=== PATIENT | male | born 1945 | race Caucasian/White ===

== ENCOUNTER 2017-10-09 14:35 | Inpatient (IN) | payer OTHER ==
--- OUTSIDE RECORDS SUMMARY | 2017-10-09 14:37 | XMS REPORT | Clinical Summary ---
:1945 [address] [facility] [place] [place] Address [address] [place] [address] Care Team Providers Name Role Phone Asked, No Pcp Primary Care Provider Unavailable Allergies Active Allergy Reactions Severity Noted Date Comments Ampicillin Anaphylaxis High 12/20/2016 Aspirin Anaphylaxis High 12/20/2016 Codeine Anaphylaxis High 12/20/2016 Meperidine Anaphylaxis High 12/20/2016 Penicillins Anaphylaxis High 12/20/2016 Tetracycline Anaphylaxis High 12/20/2016 Current Medications No known medications Active Problems Not on file Encounters Date Type Specialty Care Team Description 12/20/2016 Emergency Emergency Medicine Steve Eduardo Altered mental status, unspecified altered mental status type (Primary Dx); DO Zack Reyes after 10/08/2016 Social History Tobacco Use Types Packs/Day Years Used Date Former Smoker Alcohol Use Drinks/Week oz/Week Comments No Sex Assigned at Date Recorded Not on file Last Filed Vital Signs Vital Sign Reading Time Taken Blood Pressure 121/87 12/20/2016 1:00 PM CDT Pulse 76 12/20/2016 1:00 PM CDT Temperature - - Respiratory Rate 16 12/20/2016 1:00 PM CDT Oxygen Saturation 99% 12/20/2016 1:00 PM CDT Inhaled Oxygen Concentration - - Weight - - Height - - Body Mass Index - - Plan of Treatment Health Maintenance Due Date Last Done Comments COLON CANCER SCREENING 1996 SHINGRIX VACCINE (#1) 1996 ZOSTER VACCINE 2006 PNEUMOCOCCAL POLYSACCHARIDE VACCINE AGE 65 AND OVER 09/26/2011 PNEUMOCOCCAL-13 09/26/2011 INFLUENZA VACCINE 11/15/2017 Procedures Procedure Name Priority Date/Time Associated Comments Diagnosis ECG ED PRELIMINARY Routine 12/20/2016 1:49 Results for this INTERPRETATION PM CDT procedure are in the results section. CT STROKE BRAIN WO STAT 12/20/2016 1:07 Results for this CONTRAST PM CDT procedure are in the results section. ECG 12-LEAD STAT 12/20/2016 12:57 Results for this PM CDT procedure are in the results section. POC GLUCOSE Routine 12/20/2016 12:54 Results for this PM CDT procedure are in the results section. after 10/08/2016 Results ECG ED Preliminary Interpretation - NOT AN ORDER (12/20/2016 1:49 PM) Narrative Performed At Steve Eduardo DO 12/20/20161:49 PM ECG ED Preliminary Interpretation - Not an Order Performed by: STEVE EDUARDO Authorized by: STEVE EDUARDO ECG reviewed by ED Physician in the absence of a dean of students: yes Previous ECG: Previous ECG:Unavailable Interpretation: Interpretation: non-specific Quality: Tracing quality:Limited by artifact Rate: ECG rate:76 ECG rate assessment: normal Rhythm: Rhythm: sinus rhythm Ectopy: Ectopy: none QRS: QRS axis:Left QRS intervals:Normal Conduction: Conduction: normal ST segments: ST segments:Non-specific T waves: T waves: non-specific Comments: Sinus rhythm CT Stroke Brain Wo Contrast (12/20/2016 1:07 PM) Narrative Performed At EXAMINATION: CT STROKE BRAIN WO CONTRAST RADIANT CLINICAL HISTORY: amssudden COMPARISON:None TECHNIQUE: Noncontrast CT of the brain was performed. Both soft tissue and bone reconstruction algorithms are interpreted. CT imaging was performed with iterative reconstruction techniques and/or automated exposure control to reduce radiation dose. FINDINGS: No acute cortical infarct is identified. No intracranial hemorrhage, extra-axial collection, mass effect or hyperdense vessel is seen. There is no acute hydrocephalus. Chronic wedge-shaped insult is present in the left superior frontal gyrus. Visualized portions of the paranasal sinuses show no air-fluid level. Mastoid air cells are clear. No fracture or aggressive bony lesion is seen. IMPRESSION: No acute intracranial abnormality identified. 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 Findings were discussed with Dr. STEVE EDUARDO at 12/20/2016 1:12 PM who verbalized understanding. [facility]-[id number] Procedure Note [facility], Radiology Results Incoming - 12/20/2016 1:16 PM CDT EXAMINATION: CT STROKE BRAIN WO CONTRAST CLINICAL HISTORY: ams sudden COMPARISON: None TECHNIQUE: Noncontrast CT of the brain was performed. Both soft tissue and bone reconstruction algorithms are interpreted. CT imaging was performed with iterative reconstruction techniques and/or automated exposure control to reduce radiation dose. FINDINGS: No acute cortical infarct is identified. No intracranial hemorrhage, extra- axial collection, mass effect or hyperdense vessel is seen. There is no acute hydrocephalus. Chronic wedge-shaped insult is present in the left superior frontal gyrus. Visualized portions of the paranasal sinuses show no air-fluid level. Mastoid air cells are clear. No fracture or aggressive bony lesion is seen. IMPRESSION: No acute intracranial abnormality identified. 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 Findings were discussed with Dr. STEVE EDUARDO at 12/20/2016 1:12 PM who verbalized understanding. [facility]-[id number] Performing Organization Address City/State/Zipcode Phone Number [facility] [address] [place] [address] ECG 12 lead (12/20/2016 12:57 PM) Ventricular rate 76 [facility] Atrial rate 76 [facility] AR interval 186 [facility] QRSD interval 82 [facility] QT interval 366 [facility] QTC interval 411 [facility] P axis 1 59 [facility] QRS axis 1 -21 [facility] T wave axis 37 [facility] EKG impression Sinus rhythm with marked sinus arrhythmia-No [facility] previous ECGs available- Performing Organization Address City/[facility] Phone Number [facility] [address] [place] [address] POC glucose (12/20/2016 12:54 PM) POC glucose 516 (HH) 65 - 99 mg/dL [facility] DEPARTMENT OF PATHOLOGY AND Comment: GENOMIC MEDICINE RN Notified Meter ID: [id number] [employer] Rep: Drake Olivo Performing Organization Address City/State/Zipcode Phone Number [facility] DEPARTMENT OF PATHOLOGY [address] [facility] [place] [address] AND GENOMIC MEDICINE after 10/08/2016 Insurance Payer Benefit Plan / Group Subscriber ID Type Phone Address MEDICARE MEDICARE PART A AND B xxxxxxxxxx Medicare [place], [place] BCBS [employer] xxxxxxxxxxxx PPO Home: [address] [place], [place] [id number] [place], [place] [phone]
--- NOTE | 2017-10-09 16:47 | EDPHYS ---
Physician Documentation [facility] Name: Rigoberto Hutchins Age: 72 yrs Sex: Male : 1945 Arrival Date: 10/09/2017 Time: 14:36 Bed 18 Private MD: Joyce Granados H ED Physician Gaurav Donaldson HPI: 10/09 16:42 This 72 yrs old Male presents to ER via Wheelchair with complaints of Wound sallie Infection. Historical: - Allergies: 14:55 PENICILLINS; aj 14:55 Codeine; aj 14:55 ampicillin; aj 14:55 Tetracycline; aj 14:55 Aspirin; aj 14:55 Demerol; aj - Home Meds: 14:55 Insulin: Novolin 70/30 Sub-Q [Active]; Plavix 75 mg Oral tab 1 tab once daily [Active]; aj isosorbide mononitrate 30 mg Oral Tb24 1 tab once daily [Active]; Vytorin 10-80 10-80 mg oral tab [Active]; NitroQuick SL 0.4 mg as needed [Active]; Soma 350 mg Oral tab 1 tab 3 times per day [Active]; - PMHx: 14:55 Diabetes - IDDM; Hepatitis; Hyperlipidemia; aj - PSHx: 14:55 CABG; Cholecystectomy; Hernia repair; aj - Immunization history:: Adult Immunizations up to date. - Social history:: Smoking status: Patient uses tobacco products, smokes one pack cigarettes per day. - Ebola Screening: : Patient negative for fever greater than or equal to 101.5 degrees Fahrenheit, and additional compatible Ebola Virus Disease symptoms Patient denies exposure to infectious person Patient denies travel to an Ebola-affected area in the 21 days before illness onset No symptoms or risks identified at this time. ROS: 16:42 Eyes: Negative for injury, pain, redness, and discharge, ENT: Negative for injury, sallie pain, and discharge, Neck: Negative for injury, pain, and swelling, Cardiovascular: Negative for chest pain, palpitations, and edema, Respiratory: Negative for shortness of breath, cough, wheezing, and pleuritic chest pain, Abdomen/GI: Negative for abdominal pain, nausea, vomiting, diarrhea, and constipation, Back: Negative for injury and pain, : Negative for injury, bleeding, discharge, and swelling, Neuro: Negative for headache, weakness, numbness, tingling, and seizure, Psych: Negative for depression, anxiety, suicide ideation, homicidal ideation, and hallucinations, Allergy/Immunology: Negative for hives, rash, and allergies, Endocrine: Negative for neck swelling, polydipsia, polyuria, polyphagia, and marked weight changes, Hematologic/Lymphatic: Negative for swollen nodes, abnormal bleeding, and unusual bruising. 16:42 MS/extremity: Positive for decreased range of motion, erythema, pain, of the coccyx, left gluteus pearl and right gluteus pearl. Exam: 16:42 Head/Face: Normocephalic, atraumatic. Eyes: Pupils equal round and reactive to light, sallie extra-ocular motions intact. Lids and lashes normal. Conjunctiva and sclera are non-icteric and not injected. Cornea within normal limits. Periorbital areas with no swelling, redness, or edema. ENT: Nares patent. No nasal discharge, no septal abnormalities noted. Tympanic membranes are normal and external auditory canals are clear. Oropharynx with no redness, swelling, or masses, exudates, or evidence of obstruction, uvula midline. Mucous membranes moist. Neck: Trachea midline, no thyromegaly or masses palpated, and no cervical lymphadenopathy. Supple, full range of motion without nuchal rigidity, or vertebral point tenderness. No Meningismus. Chest/axilla: Normal chest wall appearance and motion. Nontender with no deformity. No lesions are appreciated. Cardiovascular: Regular rate and rhythm with a normal S1 and S2. No gallops, murmurs, or rubs. Normal PMI, no JVD. No pulse deficits. Respiratory: Lungs have equal breath sounds bilaterally, clear to auscultation and percussion. No rales, rhonchi or wheezes noted. No increased work of breathing, no retractions or nasal flaring. Abdomen/GI: Soft, non-tender, with normal bowel sounds. No distension or tympany. No guarding or rebound. No evidence of tenderness throughout. Back: No spinal tenderness. No costovertebral tenderness. Full range of motion. Male : Normal genitalia with no discharge or lesions. Neuro: Awake and alert, GCS 15, oriented to person, place, time, and situation. Cranial nerves II-XII grossly intact. Motor strength 5/5 in all extremities. Sensory grossly intact. Cerebellar exam normal. Normal gait. Psych: Awake, alert, with orientation to person, place and time. Behavior, mood, and affect are within normal limits. 16:42 Skin: abscess, that is moderate sized, that is large, cellulitis, that is mild, that is moderate, induration, that is moderate is noted, injury, avulsion(s), A moderate sized of the coccyx. Vital Signs: 14:55 BP 113 / 50; Pulse 77; Resp 20; Temp 99.7; Pulse Ox 97% on R/A; Weight 73.03 kg; Height aj 5 ft. 11 in. (180.34 cm); 15:30 BP 116 / 53; Pulse 90; Resp 18; Pulse Ox 98% ; aj1 16:30 BP 125 / 54; Pulse 92; Resp 18; Pulse Ox 96% ; aj1 17:30 BP 132 / 63; Pulse 86; Resp 18; Pulse Ox 97% on R/A; aj1 19:08 BP 127 / 62; Pulse 88; Resp 18; Pulse Ox 97% ; aj1 20:24 BP 152 / 75; Pulse 87; Resp 18; Temp 98.9; Pulse Ox 100% ; aj1 14:55 Body Mass Index 22.45 (73.03 kg, 180.34 cm) aj MDM: 15:10 Patient medically screened. [facility] 16:42 Data reviewed: vital signs, nurses notes, old medical records, lab test result(s), EKG, [facility] radiologic studies, plain films. 10/09 16:42 Order name: Basic Metabolic Panel; Complete Time: 18:49 [facility] 10/09 16:42 Order name: CBC with Diff [facility] 10/09 16:42 Order name: Ckmb; Complete Time: 18:49 [facility] 10/09 16:42 Order name: CPK; Complete Time: 18:49 [facility] 10/09 16:42 Order name: LFT's; Complete Time: 18:49 [facility] 10/09 16:42 Order name: Magnesium; Complete Time: 18:49 [facility] 10/09 16:42 Order name: NT PRO-BNP; Complete Time: 18:49 [facility] 10/09 16:42 Order name: PT-INR; Complete Time: 18:06 [facility] 10/09 16:42 Order name: Ptt, Activated; Complete Time: 18:06 [facility] 10/09 16:42 Order name: Troponin (emerg Dept Use Only); Complete Time: 18:49 [facility] 10/09 16:42 Order name: Blood Culture Adult (2) [facility] 10/09 16:42 Order name: Urine Culture [facility] 10/09 16:42 Order name: Type And Screen [facility] 10/09 16:45 Order name: Procalcitonin; Complete Time: 18:49 [facility] 10/09 16:42 Order name: XRAY Chest (1 view) [facility] 10/09 16:42 Order name: Pelvis XRAY [facility] 10/09 16:45 Order name: Lactate; Complete Time: 18:49 [facility] 10/09 16:47 Order name: ABG; Complete Time: 18:06 [facility] 10/09 18:40 Order name: RAD; Complete Time: 18:49 [facility] 10/09 18:44 Order name: RAD; Complete Time: 18:49 [facility] 10/09 18:51 Order name: Bb Add On bd 10/09 20:06 Order name: CBC Smear Scan [facility] 10/09 21:04 Order name: Urine Dipstick--Ancillary (enter results) 10/09 16:42 Order name: EKG; Complete Time: 16:43 [facility] 10/09 16:42 Order name: Cardiac monitoring; Complete Time: 19:07 [facility] 10/09 16:42 Order name: EKG - Nurse/Tech; Complete Time: 19:07 [facility] 10/09 16:42 Order name: IV Saline Lock; Complete Time: 17:59 [facility] 10/09 16:42 Order name: Labs collected and sent; Complete Time: 17:59 [facility] 10/09 16:42 Order name: O2 Per Protocol; Complete Time: 18:00 [facility] 10/09 16:42 Order name: O2 Sat Monitoring; Complete Time: 18:00 [facility] 10/09 16:53 Order name: CONS Physician Consult [facility] Administered Medications: 18:40 Drug: fentaNYL (PF) 25 mcg Route: IVP; Site: right antecubital; aj1 20:43 Follow up: Response: No adverse reaction aj1 18:40 Drug: Tetanus-Diphtheria Toxoid Adult 0.5 ml {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 Exp: aj1 11/17/2019. Lot #: [id number]. } Route: IM; Site: left deltoid; 20:41 Follow up: Response: No adverse reaction aj1 18:41 Drug: NS 0.9% 1000 ml Route: IV; Rate: 1 bolus; Site: right antecubital; aj1 20:44 Follow up: IV Status: Completed infusion; IV Intake: 1000ml aj1 18:41 Drug: Zofran 4 mg Route: IVP; Site: right antecubital; aj1 20:43 Follow up: Response: No adverse reaction aj1 18:55 Drug: ProTONIX 40 mg Route: IVP; Site: right forearm; aj1 20:41 Follow up: Response: No adverse reaction aj1 18:57 Drug: Insulin Regular Human 10 units {Co-Signature: ss (Cornelia Gusman RN).} Route: IVP; aj1 Site: right forearm; 20:41 Follow up: Response: No adverse reaction; Blood sugar is lowered aj1 19:39 Drug: Cefepime 2 grams Route: IVPB; Rate: 200 ml/hr; Infused Over: 30 mins; Site: right aj1 forearm; 20:42 Follow up: IV Status: Completed infusion; IV Intake: 100ml aj1 20:25 Drug: fentaNYL (PF) 25 mcg Route: IVP; Site: right forearm; aj1 20:43 Follow up: Response: No adverse reaction aj1 20:25 Drug: vancoMYCIN 1 grams Route: IVPB; Infused Over: 2 hrs; Site: right forearm; aj1 20:42 Follow up: IV Status: Infusion continued upon admission aj1 20:26 Drug: NS 0.9% 1000 ml Route: IV; Rate: 125 ml/hr; Site: right forearm; aj1 20:41 Follow up: IV Status: Infusion continued upon admission aj1 20:26 Not Given (Patient admitted, recieving nurse aware that patient did not recieve): NS aj1 0.9% 1000 ml IV at 1 bolus Per protocol; 1000 mL bolus Disposition: 10/09/17 16:47 Hospitalization ordered by Varun Encarnacion for Inpatient Admission. Preliminary diagnosis are Cutaneous abscess of buttock, Fever, unspecified, Type 1 diabetes mellitus, Anemia, unspecified. - Bed requested for Telemetry/MedSurg (Inpatient). - Status is Inpatient Admission. aj1 - Condition is Fair. - Problem is new. - Symptoms have improved. UTI on Admission? No Signatures: Dispatcher [employer] EDCarlee Ramirez RN RN aj1 Ara Barrientos RN Gaurav Zamora MD MD cha Botello, Elizabeth eb Shelby Smirch RN Corrections: (The following items were deleted from the chart) 18:07 16:47 Hospitalization Ordered by Varun Encarnacion DO for Inpatient Admission. Preliminary [facility] diagnosis is Cutaneous abscess of buttock; Fever, unspecified; Type 1 diabetes mellitus. Bed requested for Telemetry/MedSurg (Inpatient). Status is Inpatient Admission. Condition is Fair. Problem is new. Symptoms have improved. UTI on Admission? No. [facility] 19:21 18:07 10/09/2017 16:47 Hospitalization Ordered by VarunLiz WALSH for Inpatient eb Admission. Preliminary diagnosis is Cutaneous abscess of buttock; Fever, unspecified; Type 1 diabetes mellitus; Anemia, unspecified. Bed requested for Telemetry/MedSurg (Inpatient). Status is Inpatient Admission. Condition is Fair. Problem is new. Symptoms have improved. UTI on Admission? No. [facility] 21:06 19:21 10/09/2017 16:47 Hospitalization Ordered by Varun Shashank for Inpatient aj1 Admission. Preliminary diagnosis is Cutaneous abscess of buttock; Fever, unspecified; Type 1 diabetes mellitus; Anemia, unspecified. Bed requested for Telemetry/MedSurg (Inpatient). Status is Inpatient Admission. Condition is Fair. Problem is new. Symptoms have improved. UTI on Admission? No. eb
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
[2017-10-09 17:11] LABS: Arterial Blood Carboxyhemoglob 2.3 % (0-1.5); Blood Gas Oxyhemoglobin 90.4 % (94-97); Blood O2 Saturation 93.4 % (92-98.5)
[2017-10-09] MEDS ORDERED: ONDANSETRON 4 MG/2 ML VIAL IV PRN (17:35)
[2017-10-09] MEDS ORDERED: GLUCAGON 1 MG/VIAL IM PRN (17:50)
[2017-10-09] MEDS ORDERED: D50W 25 GM/50 ML SYRINGE IV PRN (17:50)
[2017-10-09 17:59] LABS: Protime INR 1.28
[2017-10-09] MEDS: INSULIN -REGULAR HUMAN 50 UNIT/0.5 ML ML SQ SCH (18:00)
[2017-10-09] MEDS: NA CHLORIDE 0.9% 1,000 ML IV SCH (18:00)
[2017-10-09] MEDS: ENOXAPARIN 40 MG/0.4 ML SQ SCH (18:00)
[2017-10-09] MEDS ORDERED: VANCOMYCIN 1.25 GM in NA CHLORIDE 0.9% 250 ML IVPB SCH (18:00)
[2017-10-09 18:01] LABS: Absolute Lymphocytes (CBC) 0.6 K/uL (0.7-4.9); Absolute Monocytes 1.2 K/uL (0.1-1.3); Absolute Neutrophil 9.1 K/uL (1.8-8.0); Basophils % 0.3 % (0-1.3); Eosinophils % 0.1 % (0-4.4); Hematocrit 26.7 % (39.6-49.0); Lymphocytes % 5.6 % (15.3-44.8); MCH 21.5 pg (27.0-35.0); MCV 70.4 fL (80-100); MPV 7.3 fL (7.6-11.3); Monocytes % 11.1 % (3.3-12.3); RBC Red Blood Cell Count 3.79 M/uL (4.33-5.43)
[2017-10-09 18:24] LABS: Albumin 2.1 g/dL (3.4-5.0); Bilirubin Direct 0.2 mg/dL (0-0.2); Bilirubin Total 0.5 mg/dL (0.2-1.0); CKMB Creatine Kinase MB 1.1 ng/mL (0.3-3.6); Magnesium 2.3 mg/dL (1.8-2.4); Potassium 4.4 mmol/L (3.5-5.1); Protein, Total 6.9 g/dL (6.4-8.2)
[2017-10-09] MEDS ORDERED: ONDANSETRON 4 MG/2 ML VIAL ONE (18:25)
[2017-10-09] MEDS ORDERED: FENTANYL CITR 100 MCG/2 ML ONE (18:25)
[2017-10-09] MEDS ORDERED: CEFEPIME 2 GM VIAL ONE (18:25)
[2017-10-09] MEDS ORDERED: NA CHLORIDE 0.9% 100 ML IV ONE (18:26)
[2017-10-09] MEDS ORDERED: TETANUS & DIPHTHERIA TOX,ADULT 0.5 ML VIAL ONE (18:26)
[2017-10-09] MEDS ORDERED: NA CHLORIDE 0.9% 2,000 ML ONE (18:26)
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
[2017-10-09] MEDS ORDERED: ALBUTEROL 2.5 MG/3 ML NEB SOL NEB PRN (18:39)
[2017-10-09] MEDS ORDERED: IPRATROPIUM BROM 0.5MG/2.5ML NEB PRN (18:39)
--- NOTE | 2017-10-09 18:39 | RAD REPORT ---
EXAM DESCRIPTION: RAD - Chest Single View - 10/09/2017 6:13 pm CLINICAL HISTORY: COUGH Chest pain. COMPARISON: Chest Single View dated 12/13/2016 FINDINGS: Portable technique limits examination quality. The lungs are emphysematous but grossly clear. The heart is normal in size. No displaced fractures.St ernotomy wires present. IMPRESSION: Prominent COPD.
[2017-10-09] MEDS ORDERED: INSULIN -REGULAR HUMAN 50 UNIT/0.5 ML ML ONE (18:40)
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
[2017-10-09] MEDS ORDERED: PANTOPRAZOLE 40 MG INJ ONE (18:54)
[2017-10-09 20:05] LABS: Platelet Estimate INCR; Urine White Blood Cell Casts OK
[2017-10-09 20:06] LABS: Anisocytosis 1+; Blood Morphology Comment NOTED (NOT SEEN); Hypochromasia 1+
--- NOTE | 2017-10-09 20:52 | EKG ---
Test Date: 2017-10-09 Test Time: 17:24:05 Ticket Taker Ferryboat: OMAR MEASUREMENT RESULTS: Intervals: Rate: 92 AL: 202 QRSD: 92 QT: 392 QTc: 484 Nelson: P: 52 AL: 202 QRS: -27 T: -27 INTERPRETIVE STATEMENTS: Normal sinus rhythm Possible Septal infarct, age undetermined Abnormal ECG Compared to ECG 12/14/2016 06:36:05 Possible Myocardial infarct finding now present Sinus arrhythmia no longer present Left ventricular hypertrophy no longer present T-wave abnormality no longer present Electronically Signed On 10-09-17 20:52:13 CDT by Hema Palacios
[2017-10-09] MEDS ORDERED: ATORVASTATIN 10 MG TAB PO SCH (21:00)
[2017-10-09] MEDS: ARFORMOTEROL TARTRATE 15 MCG/2 ML VIAL.NEB NEB SCH (21:29)
[2017-10-09 21:47] VITALS: BMI 22.6
[2017-10-09 22:17] LABS: Urine Blood TRACE (NEG); Urine Glucose 2+ (NEG); Urine Protein 2+ (NEG); Urine Specific Gravity 1.015 (1.005-1.030)
[2017-10-09] MEDS ORDERED: DIPHENHYDRAMINE 50 MG/ML VIAL IV PRN (23:28)
[2017-10-09] MEDS ORDERED: ACETAMINOPHEN 325 MG TABLET PO PRN (23:28)
[2017-10-10] MEDS: Levofloxacin500mg IV 500 MG/100 ML BAG IV SCH ×2 (00:09→17:47)
[2017-10-10] MEDS: PANTOPRAZOLE 40MG TABLET PO SCH (05:08)
[2017-10-10] MEDS: INSULIN -REGULAR HUMAN 50 UNIT/0.5 ML ML SQ SCH ×4 (05:36→17:47)
[2017-10-10] MEDS: NA CHLORIDE 0.9% 1,000 ML IV SCH ×2 (06:39→20:46)
[2017-10-10] MEDS: ARFORMOTEROL TARTRATE 15 MCG/2 ML VIAL.NEB NEB SCH ×2 (08:33→19:33)
[2017-10-10] MEDS: ISOSORBIDE MONO SR 30 MG TAB PO SCH (09:00)
[2017-10-10] MEDS ORDERED: VANCOMYCIN 1 GM in NA CHLORIDE 0.9% 500 ML IVPB SCH (09:00)
[2017-10-10] MEDS: ENOXAPARIN 40 MG/0.4 ML SQ SCH (10:03)
[2017-10-10] MEDS: VANCOMYCIN 1.25 GM in NA CHLORIDE 0.9% 250 ML IVPB SCH (10:03)
[2017-10-10] MEDS: ACETAMINOPHEN 500 MG TAB PO PRN ×2 (11:15→20:46)
--- NOTE | 2017-10-10 12:39 | P.PN ---
Subjective Date of Service: 10/10/17 Primary Care Provider: Dr. Granados; Cardiology-Dr. Aldana Chief Complaint: Sacral infection Subjective: Other (Pain stable) Physical Examination - Vital Signs Temperature: 99.6 F Blood Pressure: 106/52 Pulse: 87 Respirations: 24 Pulse Ox (%): 94 - Physical Exam General: Alert, In no apparent distress, Cooperative HEENT: Atraumatic Neck: Supple Respiratory: Clear to auscultation bilaterally, Normal air movement Cardiovascular: Normal pulses, Regular rate/rhythm Gastrointestinal: Normal bowel sounds, Soft and benign, Non-distended, Other ( Large abdominal hernia.) Integumentary: Other (Multiple areas of erythema as stated previously. No changes to ulcer to the sacrum. Cellulitis to the left axillary area.) Neurological: Normal speech, Normal strength at 5/5 x4 extr, Normal tone, Normal affect - Studies Medications List Reviewed: Yes Assessment & Plan - Problems (Diagnosis) (1) Cellulitis Onset Date: 10/10/17 Current Visit: Yes Status: Acute Plan: Multiple areas of cellulitis noted. Will continue with vancomycin and Levaquin. Blood culture positive. Suspect bacteremia. Surgery had plan to take the patient to the operating room for debridement of the sacral wound today but patient preferred to have this done tomorrow. Surgery will plan debridement for tomorrow morning. Will continue with IV antibiotic therapy. Spoke at length with surgery. Surgery recommends long-term acute care facility placement after surgery as the patient will require aggressive wound care and IV antibiotic therapy. Will need to obtain information from [facility] for recent hospitalization. Qualifiers: Site of cellulitis: buttock Qualified Code(s): L03.317 - Cellulitis of buttock (2) Sacral decubitus ulcer Onset Date: 10/10/17 Current Visit: Yes Status: Acute Plan: Continue with IV antibiotic therapy. Surgery to do debridement tomorrow. (3) Ulcer Onset Date: 10/10/17 Current Visit: Yes Status: Acute Plan: Continue with treatment. Will monitor and address closely. (4) Hepatitis C Onset Date: 10/10/17 Current Visit: Yes Status: Chronic Plan: Patient has a history of hepatitis-C. Will verify. Will monitor closely. Qualifiers: Viral hepatitis chronicity: chronic Hepatic coma status: without hepatic coma Qualified Code(s): B18.2 - Chronic viral hepatitis C (5) Anemia Onset Date: 10/10/17 Current Visit: Yes Status: Chronic Plan: Anemia likely of chronic disease. Will monitor closely. Patient may require blood transfusion. Will check iron studies. Qualifiers: Anemia type: other cause (6) CAD (coronary artery disease) Onset Date: 12/14/16 Current Visit: No Status: Chronic Plan: Will continue with home medication. (7) Diabetes mellitus Onset Date: 12/14/16 Current Visit: No Status: Chronic Plan: Will check A1c. Will continue sliding scale. Will add Levemir 10 units subcu twice daily. Will monitor and adjust appropriately. Patient will require strict diabetic control. (8) History of CVA (cerebrovascular accident) Current Visit: No Status: Chronic Plan: Patient with history of stroke. Will need to start DVT prophylaxis. Continue with home medication (9) Hyperlipidemia Onset Date: 12/14/16 Current Visit: No Status: Chronic Plan: Will verify and restart home medication (10) COPD (chronic obstructive pulmonary disease) Current Visit: Yes Status: Chronic Plan: Continue with COPD treatment. Qualifiers: COPD type: chronic bronchitis Chronic bronchitis type: unspecified Qualified Code(s): J42 - Unspecified chronic bronchitis (11) Bacteremia Current Visit: Yes Status: Acute Plan: Blood culture positive. Will continue IV vancomycin and Levaquin. Await final results. Discharge Plan: Other (Long-term acute care facility placement) Plan to discharge in: 24 Hours Time Spent Managing Pts Care (In Minutes): 55
[2017-10-10 14:40] LABS: Urine Appearance CLOUDY; Urine Bilirubin NEGATIVE (NEG); Urine Blood NEGATIVE (NEG); Urine Color YELLOW; Urine Glucose 3+ (NEG); Urine Protein 2+ (NEG); Urine Specific Gravity >=1.030 (1.005-1.030); Urine Urobilinogen 0.2 mg/dL (0.2-1.0); Urine pH 7.5 (5.0-7.0)
[2017-10-10 14:58] LABS: Barbiturates NEGATIVE (NEGATIVE); Benzodiazepines NEGATIVE (NEGATIVE); Cocaine POSITIVE (NEGATIVE); METHAMPHETAM NEGATIVE (NEGATIVE); Methadone NEGATIVE (NEGATIVE); Opiates NEGATIVE (NEGATIVE); Phencyclidine NEGATIVE (NEGATIVE); THC Cannibis NEGATIVE (NEGATIVE)
[2017-10-10 15:02] LABS: Urine Microscopic Reflex ORDER UMIC
[2017-10-10 15:21] LABS: Urine Bacteria 20-50 /HPF (NONE SEEN); Urine RBC <5 /HPF (NONE SEEN)
[2017-10-10 15:22] LABS: Urine Amorphous Sediment 1+ /HPF (NONE SEEN); Urine Mucus 1+ /HPF (NONE SEEN)
[2017-10-10 15:24] LABS: Absolute Lymphocytes (CBC) 0.7 K/uL (0.7-4.9); Absolute Monocytes 1.1 K/uL (0.1-1.3); Absolute Neutrophil 7.3 K/uL (1.8-8.0); Basophils % 0.3 % (0-1.3); Eosinophils % 0.5 % (0-4.4); Hematocrit 33.5 % (39.6-49.0); MCH 22.5 pg (27.0-35.0); MCV 73.9 fL (80-100); MPV 7.4 fL (7.6-11.3); RBC Red Blood Cell Count 4.53 M/uL (4.33-5.43)
[2017-10-10 15:28] LABS: Urine Culture Reflex Order NOT NEEDED
[2017-10-10 15:58] LABS: Magnesium 2.1 mg/dL (1.8-2.4); Potassium 4.3 mmol/L (3.5-5.1); Thyroid Stimulating Hormone 1.06 uIU/mL (0.36-3.74)
[2017-10-10 16:08] LABS: Ferritin 64.6 ng/mL (26-388)
[2017-10-10] MEDS: MUPIROCIN 2% OINT 22GM TUBE TOP SCH (17:33)
[2017-10-10] MEDS: INSULIN DETEMIR 100 UNIT/1 ML INSULIN SQ SCH (17:47)
[2017-10-10] MEDS: EZETIMIBE 10 MG TAB PO SCH (20:45)
[2017-10-10] MEDS: ATORVASTATIN 40 MG TAB PO SCH (20:45)
[2017-10-10] MEDS: TRAMADOL HCL 50 MG TAB PO PRN (21:31)
[2017-10-11] MEDS: TRAMADOL HCL 50 MG TAB PO PRN ×2 (03:18→17:39)
[2017-10-11] MEDS: VANCOMYCIN 1.25 GM in NA CHLORIDE 0.9% 250 ML IVPB SCH ×2 (03:19→22:27)
[2017-10-11] MEDS ORDERED: LIDOCAINE 1% MPF 5 ML VIAL ONE (05:08)
[2017-10-11 05:30] LABS: Absolute Lymphocytes (CBC) 0.8 K/uL (0.7-4.9); Absolute Monocytes 1.3 K/uL (0.1-1.3); Absolute Neutrophil 7.5 K/uL (1.8-8.0); Basophils % 0.3 % (0-1.3); Eosinophils % 0.4 % (0-4.4); Hematocrit 33.8 % (39.6-49.0); Lymphocytes % 7.9 % (15.3-44.8); MCH 22.7 pg (27.0-35.0); MPV 7.5 fL (7.6-11.3); Monocytes % 13.5 % (3.3-12.3); RBC Red Blood Cell Count 4.56 M/uL (4.33-5.43)
[2017-10-11 05:45] LABS: Magnesium 2.3 mg/dL (1.8-2.4)
[2017-10-11] MEDS: PANTOPRAZOLE 40MG TABLET PO SCH (05:54)
[2017-10-11] MEDS: INSULIN -REGULAR HUMAN 50 UNIT/0.5 ML ML SQ SCH ×5 (07:16→20:46)
[2017-10-11] MEDS: INSULIN DETEMIR 100 UNIT/1 ML INSULIN SQ SCH ×2 (08:00→17:00)
[2017-10-11] MEDS: ARFORMOTEROL TARTRATE 15 MCG/2 ML VIAL.NEB NEB SCH ×2 (08:00→20:48)
[2017-10-11 08:40] LABS: Platelet Estimate ADEQ; Urine White Blood Cell Casts OK
[2017-10-11 08:41] LABS: Anisocytosis 2+; Blood Morphology Comment NOTED (NOT SEEN)
[2017-10-11] MEDS: ISOSORBIDE MONO SR 30 MG TAB PO SCH (09:00)
[2017-10-11] MEDS: CLOPIDOGREL 75 MG TABLET PO SCH (09:00)
[2017-10-11] MEDS: ENOXAPARIN 40 MG/0.4 ML SQ SCH (09:00)
[2017-10-11] MEDS ORDERED: EZETIMIBE PO SCH (09:00)
[2017-10-11] MEDS: COLLAGENASE 30 GM OINTMENT TOP SCH (09:00)
[2017-10-11] MEDS ORDERED: SIMVASTATIN PO SCH (09:00)
--- NOTE | 2017-10-11 09:33 | P.PN ---
Subjective Date of Service: 10/11/17 Primary Care Provider: Dr. Granados; Cardiology-Dr. Aldana Chief Complaint: Sacral infection Subjective: Doing well Physical Examination - Vital Signs Temperature: 99.9 F Blood Pressure: 115/43 Pulse: 115 Respirations: 16 Pulse Ox (%): 91 - Physical Exam General: Alert, In no apparent distress, Oriented x3, Cooperative HEENT: Atraumatic Neck: Supple Respiratory: Clear to auscultation bilaterally, Normal air movement Cardiovascular: Normal pulses, Regular rate/rhythm Gastrointestinal: Normal bowel sounds, Soft and benign, Non-distended, No tenderness, No masses, No rebound, No guarding Musculoskeletal: No tenderness, No warmth Integumentary: Other (Multiple wounds unchanged.) Neurological: Normal speech, Normal strength at 5/5 x4 extr, Normal tone, Normal affect - Studies Medications List Reviewed: Yes Assessment & Plan - Problems (Diagnosis) (1) Cellulitis Onset Date: 10/10/17 Current Visit: Yes Status: Acute Plan: Multiple areas of cellulitis noted. Will continue with vancomycin and Levaquin. Blood culture positive. Suspect bacteremia versus contaminant. Possible UTI noted as well. Surgery plans to take the patient for debridement today. Wound care therapy evaluated the patient. Will continue with their recommendations. Patient has been approved to go to a long-term acute care facility. Patient agrees. This will occur tomorrow. Continue current treatment. Will try to obtain information from previous hospitalization Qualifiers: Site of cellulitis: buttock Qualified Code(s): L03.317 - Cellulitis of buttock (2) Sacral decubitus ulcer Onset Date: 10/10/17 Current Visit: Yes Status: Acute Plan: Continue with IV antibiotic therapy. Surgery to do debridement today. (3) Ulcer Onset Date: 10/10/17 Current Visit: Yes Status: Acute Plan: Continue with treatment. Will monitor and address closely. (4) Hepatitis C Onset Date: 10/10/17 Current Visit: Yes Status: Chronic Plan: Patient has a history of hepatitis-C. Will verify. Will monitor closely. Qualifiers: Viral hepatitis chronicity: chronic Hepatic coma status: without hepatic coma Qualified Code(s): B18.2 - Chronic viral hepatitis C (5) Anemia Onset Date: 10/10/17 Current Visit: Yes Status: Chronic Plan: Anemia likely of chronic disease. Patient with iron and B12 deficiency anemia. Will continue with iron and B12 supplementation. Will continue monitor closely. Qualifiers: Anemia type: other cause (6) CAD (coronary artery disease) Onset Date: 12/14/16 Current Visit: No Status: Chronic Plan: Will continue with home medication. (7) Diabetes mellitus Onset Date: 12/14/16 Current Visit: No Status: Chronic Plan: Will check A1c. Will continue sliding scale. Will continue to adjust Levemir for better control. (8) History of CVA (cerebrovascular accident) Current Visit: No Status: Chronic Plan: Patient with history of stroke. Will need to start DVT prophylaxis. Continue with home medication (9) Hyperlipidemia Onset Date: 12/14/16 Current Visit: No Status: Chronic Plan: Will continue with home medication (10) COPD (chronic obstructive pulmonary disease) Current Visit: Yes Status: Chronic Plan: Continue with COPD treatment. Qualifiers: COPD type: chronic bronchitis Chronic bronchitis type: unspecified Qualified Code(s): J42 - Unspecified chronic bronchitis (11) Bacteremia Current Visit: Yes Status: Acute Plan: Blood culture positive. This is likely a contaminant. Will continue IV vancomycin and Levaquin. Await final results. (12) UTI (urinary tract infection) Current Visit: Yes Status: Suspected Plan: Continue with IV antibiotic therapy. Await urine culture. Qualifiers: Urinary tract infection type: site unspecified Hematuria presence: without hematuria Qualified Code(s): N39.0 - Urinary tract infection, site not specified (13) Cocaine abuse Onset Date: 12/14/16 Current Visit: No Status: Acute Plan: Patient admits cocaine use but 1 month ago. Cessation addressed in detail. Patient understands. Discharge Plan: Other (Long-term care facility.) Plan to discharge in: 24 Hours Time Spent Managing Pts Care (In Minutes): 55
[2017-10-11] MEDS: NA CHLORIDE 0.9% 1,000 ML IV SCH ×2 (10:00→23:20)
[2017-10-11] MEDS ORDERED: COLLAGENASE 30 GM OINTMENT TOP ONE (10:45)
[2017-10-11] MEDS ORDERED: NA CHLORIDE 0.9% 1,000 ML ONE (10:49)
[2017-10-11] MEDS ORDERED: PROPOFOL 200 MG/20 ML VIAL IV ONE (10:50)
[2017-10-11] MEDS ORDERED: LIDOCAINE 2% MPF 5 ML VIAL ONE (10:51)
[2017-10-11] MEDS ORDERED: MIDAZOLAM HCL 2 MG/2 ML INJ ONE (10:51)
[2017-10-11] MEDS ORDERED: FENTANYL CITR 100 MCG/2 ML ONE (10:52)
[2017-10-11] MEDS ORDERED: ROCURONIUM 50 MG/5 ML VIAL IV ONE (10:52)
--- NOTE | 2017-10-11 11:08 | ECHO ---
HEIGHT: 5 ft 10 in WEIGHT: 158 lb 1.6 oz DATE OF STUDY: 10/11/[address]: Varun Encarnacion DO 2-DIMENSIONAL: YES M.MODE: YES DOPPLER: YES COLOR FLOW: YES TDS: NO PORTABLE: NO DEFINITY: NO BUBBLE STUDY: NO DIAGNOSIS: CORONARY ARTERY DISEASE, HYPERTENSION CARDIAC HISTORY: CATHERIZATION: NO SURGERY: YES PROSTHETIC VALVE: NO PACEMAKER: NO MEASUREMENTS (cm) DIASTOLIC (NORMALS) SYSTOLIC (NORMALS) IVSd 1.3 (0.6-1.2) LA Diam 4.0 (1.9-4.0) LVEF 68% LVIDd 5.3 (3.5-5.7) LVIDs 3.3 (2.0-3.5) %FS 39% LVPWd 1.2 (0.6-1.2) Ao Diam 2.6 (2.0-3.7) 2 DIMENSIONAL ASSESSMENT: RIGHT ATRIUM: NORMAL LEFT ATRIUM: NORMAL RIGHT VENTRICLE: NORMAL LEFT VENTRICLE: LEFT VENTRICULAR HYPERTROPHY TRICUSPID VALVE: NORMAL MITRAL VALVE: NORMAL PULMONIC VALVE: NORMAL AORTIC VALVE: SCLEROSIS PERICARDIAL EFFUSION: NONE AORTIC ROOT: NORMAL LEFT VENTRICULAR WALL MOTION: NORMAL DOPPLER/COLOR FLOW: NO AORTIC STENOSIS OR AORTIC REGURGITATION. MILD TRICUSPID REGURGITATION. MILD PULMONARY HYPERTENSION. ESTIMATED RIGHT VENTRICULAR SYSTOLIC PRESSURE 45mmHg. COMMENTS: NORMAL LEFT VENTRICULAR EJECTION FRACTION. LEFT VENTRICULAR HYPERTROPHY. AORTIC SCLEROSIS WITH NO AORTIC STENOSIS OR AORTIC REGURGITATION. MILD TRICUSPID REGURGITATION. MILD PULMONARY HYPERTENSION. TECHNOLOGIST: Lorene RICKETTS
[2017-10-11] MEDS: FENTANYL CITR 100 MCG/2 ML ONE ×2 (12:20→12:25)
--- NOTE | 2017-10-11 14:29 | P.BOP ---
Preoperative diagnosis: necrotic infected stage 4 decubitus ulcer sacrum, necrotic decubitus R leg Postoperative diagnosis: same Primary procedure: 1.Excis.debridement necrotic infected stage 4 decubitus ulcer sacrum Secondary procedure: 2. Excis. debridement necrotic infected decubitus ulcer R leg Specimen: pus and necrotic tissue Anesthesia: General Transferred to: Recovery Room Condition: Good
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
[2017-10-11] MEDS: MUPIROCIN 2% OINT 22GM TUBE TOP SCH (17:50)
[2017-10-11] MEDS: Levofloxacin500mg IV 500 MG/100 ML BAG IV SCH (17:57)
[2017-10-11] MEDS: ATORVASTATIN 40 MG TAB PO SCH (20:45)
[2017-10-11] MEDS: EZETIMIBE 10 MG TAB PO SCH (20:46)
[2017-10-11] MEDS ORDERED: TAMSULOSIN 0.4 MG SR CAP PO SCH (21:00)
[2017-10-11 21:30] VITALS: O2SAT 92
[2017-10-11] MEDS: MORPHINE 2 MG/ML SYR IV PRN (21:45)
[2017-10-12] MEDS: TRAMADOL HCL 50 MG TAB PO PRN (03:14)
[2017-10-12] MEDS: NA CHLORIDE 0.9% 1,000 ML IV SCH ×2 (03:51→11:42)
[2017-10-12 05:00] LABS: Absolute Lymphocytes (CBC) 0.7 K/uL (0.7-4.9); Absolute Monocytes 0.8 K/uL (0.1-1.3); Absolute Neutrophil 5.9 K/uL (1.8-8.0); Basophils % 1.4 % (0-1.3); Eosinophils % 0.8 % (0-4.4); Hematocrit 31.7 % (39.6-49.0); Lymphocytes % 8.6 % (15.3-44.8); MCH 22.9 pg (27.0-35.0); MCV 73.2 fL (80-100); MPV 7.3 fL (7.6-11.3); Monocytes % 11.2 % (3.3-12.3); RBC Red Blood Cell Count 4.33 M/uL (4.33-5.43)
[2017-10-12 05:14] LABS: BUN Blood Urea Nitrogen 14 mg/dL (7-18); Bicarbonate 30 mmol/L (21-32); Glucose Level 204 mg/dL (74-106); Magnesium 2.1 mg/dL (1.8-2.4); Sodium Level 135 mmol/L (136-145)
[2017-10-12] MEDS: PANTOPRAZOLE 40MG TABLET PO SCH (05:52)
[2017-10-12] MEDS: ARFORMOTEROL TARTRATE 15 MCG/2 ML VIAL.NEB NEB SCH (07:55)
[2017-10-12] MEDS: INSULIN -REGULAR HUMAN 50 UNIT/0.5 ML ML SQ SCH ×3 (08:19→16:48)
[2017-10-12] MEDS: ISOSORBIDE MONO SR 30 MG TAB PO SCH (08:20)
[2017-10-12] MEDS: CLOPIDOGREL 75 MG TABLET PO SCH (08:20)
[2017-10-12] MEDS: INSULIN DETEMIR 100 UNIT/1 ML INSULIN SQ SCH (08:20)
[2017-10-12] MEDS: COLLAGENASE 30 GM OINTMENT TOP SCH (08:20)
[2017-10-12] MEDS: ENOXAPARIN 40 MG/0.4 ML SQ SCH (08:20)
[2017-10-12] MEDS: MORPHINE 2 MG/ML SYR IV PRN ×2 (08:21→17:39)
[2017-10-12] MEDS ORDERED: VANCOMYCIN 1.25 GM in NA CHLORIDE 0.9% 250 ML IVPB SCH (10:00)
--- NOTE | 2017-10-12 13:56 | P.PN ---
Subjective Date of Service: 10/12/17 Primary Care Provider: Dr. Granados; Cardiology-Dr. Aldana Chief Complaint: Sacral infection Subjective: Doing well Physical Examination - Vital Signs Temperature: 98.9 F Blood Pressure: 115/55 Pulse: 86 Respirations: 18 Pulse Ox (%): 91 - Physical Exam General: Alert, In no apparent distress, Oriented x3, Cooperative HEENT: Atraumatic Neck: Supple Respiratory: Clear to auscultation bilaterally, Normal air movement Cardiovascular: Normal pulses, Regular rate/rhythm Gastrointestinal: Normal bowel sounds, Soft and benign, Non-distended, Other ( hernia noted) Musculoskeletal: Other (Wounds bandaged.) Neurological: Normal speech, Normal strength at 5/5 x4 extr, Normal tone, Normal affect - Studies Medications List Reviewed: Yes Assessment & Plan - Problems (Diagnosis) (1) Cellulitis Onset Date: 10/10/17 Current Visit: Yes Status: Acute Plan: Multiple areas of cellulitis noted. Will continue with vancomycin and Levaquin. So far wound culture pending. Urine culture positive for Staph epidermidis, blood culture 1/2 positive for Streptococcus. Patient had debridement yesterday of sacral wound. Case discussed at length with surgery. Patient would highly benefit long-term acute care facility placement for aggressive wound care and IV antibiotic therapy. Await approval. Qualifiers: Site of cellulitis: buttock Qualified Code(s): L03.317 - Cellulitis of buttock (2) Sacral decubitus ulcer Onset Date: 10/10/17 Current Visit: Yes Status: Acute Plan: Continue with IV antibiotic therapy. Debridement done yesterday. Case discussed with surgery. Continue as above. Await long-term acute care facility placement. (3) Ulcer Onset Date: 10/10/17 Current Visit: Yes Status: Acute Plan: Continue with treatment. Will monitor and address closely. Continue with wound care recommendations. (4) Hepatitis C Onset Date: 10/10/17 Current Visit: Yes Status: Chronic Plan: Patient has a history of hepatitis-C. Will verify. Will monitor closely. Qualifiers: Viral hepatitis chronicity: chronic Hepatic coma status: without hepatic coma Qualified Code(s): B18.2 - Chronic viral hepatitis C (5) Anemia Onset Date: 10/10/17 Current Visit: Yes Status: Chronic Plan: Anemia likely of chronic disease. Patient with iron and B12 deficiency anemia. Will continue with iron and B12 supplementation. Will continue monitor closely. Qualifiers: Anemia type: other cause (6) CAD (coronary artery disease) Onset Date: 12/14/16 Current Visit: No Status: Chronic Plan: Will continue with home medication. (7) Diabetes mellitus Onset Date: 12/14/16 Current Visit: No Status: Chronic Plan: A1c 10.4. Will continue to adjust Levemir for better diabetic control. (8) History of CVA (cerebrovascular accident) Current Visit: No Status: Chronic Plan: Patient with history of stroke. Will need to start DVT prophylaxis. Continue with home medication (9) Hyperlipidemia Onset Date: 12/14/16 Current Visit: No Status: Chronic Plan: Will continue with home medication (10) COPD (chronic obstructive pulmonary disease) Current Visit: Yes Status: Chronic Plan: Continue with COPD treatment. Qualifiers: COPD type: chronic bronchitis Chronic bronchitis type: unspecified Qualified Code(s): J42 - Unspecified chronic bronchitis (11) Bacteremia Current Visit: Yes Status: Acute Plan: Blood culture positive. This is likely a contaminant. Blood culture positive for Streptococcus. Will continue IV vancomycin and Levaquin. Await final results. (12) UTI (urinary tract infection) Current Visit: Yes Status: Suspected Plan: Continue with IV antibiotic therapy. Await urine culture final. Qualifiers: Urinary tract infection type: site unspecified Hematuria presence: without hematuria Qualified Code(s): N39.0 - Urinary tract infection, site not specified (13) Cocaine abuse Onset Date: 12/14/16 Current Visit: No Status: Acute Plan: Patient admits cocaine use but 1 month ago. Cessation addressed in detail. Patient understands. Discharge Plan: LTAC Plan to discharge in: 24 Hours Time Spent Managing Pts Care (In Minutes): 55
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
[2017-10-12 16:34] VITALS: BP 162/67; TEMP 98.6
[2017-10-12] MEDS ORDERED: INSULIN DETEMIR 100 UNIT/1 ML INSULIN SQ SCH (17:00)
[2017-10-12] MEDS: Levofloxacin500mg IV 500 MG/100 ML BAG IV SCH (17:53)
[2017-10-12] MEDS: MUPIROCIN 2% OINT 22GM TUBE TOP SCH (17:53)
[2017-10-12] MEDS ORDERED: JUVEN PACKET PO SCH (21:00)
[2017-10-13 10:31] LABS: HIV 1/2 Antibody Diff Not indicated.; HIV AG/AB 4TH GEN Non-reactive (Non-reactive)
[2017-10-13 12:56] LABS: HBsAG Nonreactive (Nonreactive); Hepatitis A IgM Antibody Nonreactive
[2017-10-13 21:44] LABS: Hepatitis C Virus RNA (PCR)log <1.18 log IU/mL
--- NOTE | 2017-10-23 23:31 | OP ---
Date of Procedure: 10/11/2017 Surgeon: Vik Mixon MD Diagnoses: Necrotic infected stage IV decubitus ulcer on the sacrum and necrotic decubitus right leg ulcer. Postoperative Diagnoses: Necrotic infected stage IV decubitus ulcer on the sacrum and necrotic decub itus right leg ulcer. Procedures: 1.Excisional debridement of necrotic infected stage IV decubitus ulcer in the sacrum 20 x 25 cm x 2 cm. 2.Excisional debridement of necrotic infected decubitus ulcer, right leg, 5 x 5 cm x 1 cm. Anesthesia: General plus local. Specimen: Pus and necrotic tissue. Indications For Procedure: This is the case of a male, who comes to us with the above decubitus ulce r, fully explained the need for debridement with benefits, alternatives, and risks including, but not limited to infection, bleeding, damage to adjacent structures, anesthesia complication, recurrence, AR and even . He also understands this may not relieve any symptoms. He might need more than o ne surgical intervention. Fully explained also the importance of wound care, offloading, nutrition a s part of the healing process. He understands also he will require dressing changes daily. He bismark d a consent. Description Of Procedure: The patient was brought to the operating room and placed in supine positio n. Anesthesia was done without complication. Then, the patient was placed in lateral decubitus posi tion with proper protection. A time-out was called. Back, buttocks and right leg were prepped and d raped in a sterile fashion. We went to the sacrum first, there is a large necrotic ulcer with fluctu ance present and foul smelling. It is about 20 x 25 cm. Using a sharp knife, we proceeded to remove the tissue from the area that goes deep at least 3 cm. The pus was found, pockets were found, multiple loculations with the complex ulcer and abscess associated with it. The necrotic tissue was removed. Area was profusely irrigated. Hemostasis was obtained. After that, we went to the right l eg also about 5 x 5 cm ulcer, a little bit better than the sacrum, still stage IV with necrotic tissu e, less abscess present and the tissue was removed, excised, until good tissue was found and hemostas is was obtained. Area was profusely irrigated, both of them and then packed wet-to-dry dressing afte r injection of local anesthetic. The patient tolerated the procedure well. The patient was sent to recovery room in stable condition. The patient will most likely require more surgical intervention i n the future. EDGAR Voice ID: [id number] Report ID: [id number]
== END 2017-10-12 18:26 | DRG 579 ==
LOC: ER 14:35 → ERHOLD 16:49 → EEVIPCON 16:49 → 2ND 20:13
PROVIDERS: ADMIT Family Medicine; ATTEND Family Medicine
PROC: 30233N1 Transfusion of Nonautologous Red Blood Cells into Peripheral Vein, Percutaneous Approach (ICD-10-PCS; 2017-10-10)
PROC: 0KBS0ZZ Excision of Right Lower Leg Muscle, Open Approach (ICD-10-PCS; 2017-10-11)
PROC: 0HB6XZZ Excision of Back Skin, External Approach (ICD-10-PCS; principal; 2017-10-11 11:00)
DX: L89.154 Pressure ulcer of sacral region, stage 4 (principal); L03.115 Cellulitis of right lower limb; N39.0 Urinary tract infection, site not specified; R78.81 Bacteremia; L89.899 Pressure ulcer of other site, unspecified stage; B95.7 Other staphylococcus as the cause of diseases classified elsewhere; E11.9 Type 2 diabetes mellitus without complications; I25.10 Atherosclerotic heart disease of native coronary artery without angina pectoris; Z95.1 Presence of aortocoronary bypass graft; E78.5 Hyperlipidemia, unspecified; K21.9 Gastro-esophageal reflux disease without esophagitis; F14.10 Cocaine abuse, uncomplicated; J44.9 Chronic obstructive pulmonary disease, unspecified; Z87.891 Personal history of nicotine dependence; N40.1 Benign prostatic hyperplasia with lower urinary tract symptoms; R33.8 Other retention of urine; B18.2 Chronic viral hepatitis C; D64.9 Anemia, unspecified; B95.5 Unspecified streptococcus as the cause of diseases classified elsewhere; Z86.73 Personal history of transient ischemic attack (TIA), and cerebral infarction without residual deficits; Z88.0 Allergy status to penicillin
CPT/HCPCS: 36415; 71045; 72170; 80048; 80061; 80074; 80076; 80202; 80307; 81003; 81015; 82550; 82553; 82607; 82728; 82805; 82962; 83036; 83540; 83605; 83735; 83880; 84145; 84439; 84443; 84466; 84484; 85025; 85610; 85730; 86850; 86900; 86901; 87040; 87070; 87075; 87077; 87086; 87088; 87186; 87205; 87389; 87522; 88304; 88305; 90714; 93005; 93306; 94640; 97163; 99285; C9113; G0103; J0692; J1650; J2250; J2270; J2405; J3010; J3590; J7030; J7605; P9016

== ENCOUNTER 2018-01-26 19:29 | Emergency (ER) | payer OTHER ==
--- OUTSIDE RECORDS SUMMARY | 2018-01-26 19:31 | XMS REPORT | Clinical Summary ---
:1945 Author Organization [facility] Address [address] [place] [address] Care Team Providers Name Role Phone Asked, No Pcp Primary Care Provider Unavailable Allergies Active Allergy Reactions Severity Noted Date Comments Ampicillin Anaphylaxis High 12/20/2016 Aspirin Anaphylaxis High 12/20/2016 Codeine Anaphylaxis High 12/20/2016 Meperidine Anaphylaxis High 12/20/2016 Penicillins Anaphylaxis High 12/20/2016 Tetracycline Anaphylaxis High 12/20/2016 Current Medications No known medications Active Problems Not on file Social History Tobacco Use Types Packs/Day Years Used Date Former Smoker Alcohol Use Drinks/Week oz/Week Comments No Sex Assigned at Date Recorded Not on file Last Filed Vital Signs Not on file Plan of Treatment Health Maintenance Due Date Last Done Comments COLON CANCER SCREENING 1996 SHINGRIX VACCINE (#1) 1996 ZOSTER VACCINE 2006 PNEUMOCOCCAL POLYSACCHARIDE VACCINE AGE 65 AND OVER 09/26/2011 PNEUMOCOCCAL-13 09/26/2011 INFLUENZA VACCINE 11/15/2017 Results Not on fileafter 01/25/2017 Insurance Payer Benefit Plan / Group Subscriber ID Type Phone Address MEDICARE MEDICARE PART A AND B xxxxxxxxxx Medicare [place], [place] BC [facility] xxxxxxxxxxxx PPO [phone] [place] [id number]
--- OUTSIDE RECORDS SUMMARY | 2018-01-26 19:33 | XMS REPORT | Continuity of Care Document ---
:1945 Author Organization Interface Problems Problem Status Onset Classification Date Comments Source Date Reported LIFE FLIGHT Active [address] NURSING HOME Active [address] L HIP Active [facility] DISLOCATION [address] [place] [address] POSTERIOR Active [facility] DISLOCATION OF Medical LEFT HIP, INITI Center Medications Medication Details Route Status Patient Ordering Order Source Instructions Provider Date Nicotine 7 mg, Route: No Longer [facility], Drug form: Active 2017 Medical ERFILM, Daily, Center Dosing Weight 81.364, kg, Start date: 09/26/17 9:00:00 CDT, Duration: 30 day, Stop date: 10/25/17 9:00:00 CDT Insulin Lispro 10 unit, 0.1 No Longer [facility] mL, Route: Active 2017 Medical SUB-Q, Drug Center form: SOLN, TID-Before Meals, Dosing Weight 81.364, kg, Start date: 09/25/17 16:30:00 CDT, Stop date: 10/25/17 11:30:00 CDTNotes: (Same as: Humalog ) Roll in palms of hands gently; Do not shake `vigorously. "Single Patient Use Only " WASTE: F/P - Black; E - Municipal Trash Bin Stable for 28 days at room temperature. Expires in days from D ate Nicotine 7 mg, Route: Inactive [facility], Drug form: 2018 Medical ERFILM, Daily, Center Dosing Weight 81.364, kg, Start date: 09/25/17 14:23:00 CDT, Duration: 30 day, Stop date: 10/25/17 9:00:00 CDT Nicotine 21 mg, 1 patch, No Longer [facility] Route: TOP, Active 2017 Medical Drug form: Center ERFILM, Daily, Dosing Weight 81.364, kg, Start date: 09/25/17 12:00:00 CDT, Duration: 30 day, Stop date: 10/25/17 9:00:00 CDTNotes: (Same as: Habitrol) "Remove old patch before application of new patch" WASTE: F/P - P Waste Black; E - P Waste Black Insulin 10 unit, Route: Inactive [place] Glargine 100 SUB-Q, Daily, 2018 Medical UNT/ML Dosing Weight Center Injectable 81.364, kg, Solution Start date: 09/25/17 9:10:00 CDT, Duration: 30 day, Stop date: 10/25/17 9:00:00 CDT POLYETHYLENE 17 gm, 1 pkt, No Longer [place] GLYCOL 3350 Route: PO, Drug Active 2017 Medical form: PWDR, Center Daily, Dosing Weight 81.364, kg, Start date: 09/25/17 9:00:00 CDT, Duration: 30 day, Stop date: 10/24/17 9:00:00 CDTNotes: Dissolve in 8 oz of water or juice. (Same as: Miralax) sennosides, RETIREMENT 8.6 mg, 1 tab, No Longer [place] Route: PO, Drug Active 2017 Medical Form: TAB, Center Dosing Weight 81.364, kg, Daily, Start date: 09/25/17 9:00:00 CDT, Duration: 30 day, Stop date: 10/24/17 9:00:00 CDTNotes: (Same as: Senokot) Docusate 100 mg, 1 cap, No Longer [place] Route: PO, Drug Active 2017 Medical form: CAP, Center Daily, Dosing Weight 81.364, kg, Start date: 09/25/17 9:00:00 CDT, Duration: 30 day, Stop date: 10/24/17 9:00:00 CDTNotes: (Same as: Colace) (Do Not Crush) Insulin Lispro 15 unit, 0.15 No Longer [place] mL, Route: Active 2017 Medical SUB-Q, Drug Center form: SOLN, TID-Before Meals, Dosing Weight 81.364, kg, PRN Blood Glucose Results, Start date: 09/24/17 20:54:00 CDT, Duration: 30 day, Stop date: 10/24/17 20:53:00 CDTNotes: (Same as: Humalog ) Roll in palms of hands gently; Do not shake `vigorously. "Single Patient Use Only " WASTE: F/P - Black; E - Municipal Trash Bin Stable for 28 days at room temperature. Expires in days from D ate Isolyte S PH 1,000 mL, Rate: No Longer [facility] 7.4 1,000 mL 150 ml/hr, Active 2018 Medical Infuse over: Center 6.7 hr, Route: IV, Dosing Weight 81.364 kg, Total Volume: 1,000, Start date: 09/24/17 20:51:00 CDT, Duration: 30 day, Stop date: 10/24/17 20:50:00 CDT, 2.02, [id number]: (Same as: Isolyte S PH 7.4) Isolyte S 1,000 mL, 1000 Inactive [facility] PH-7.4 (Bolus) ml/hr, Route: 2018 Medical IV IV, Drug Form: Center INJ, Dosing Weight 81.364, kg, ONCE, STAT, Start date: 09/24/17 20:51:00 CDT, Stop date: 09/24/17 20:51:00 CDT, Bolus Dose Infuse over 1 hourNotes: WASTE: F/P - Sink; E - Municipal Trash Bin Insulin regular 10 unit, 0.1 Inactive [facility] mL, Route: 2018 Medical SUB-Q, Drug Center form: SOLN, ONCE, Dosing Weight 81.364, kg, Start date: 09/24/17 19:54:00 CDT, Stop date: 09/24/17 19:54:00 CDTNotes: (Same as: Humulin R) Roll in palms of hands gently; Do not shake vigorously. "single patient use only" (Restricted to patients requiring a dose > 60 units) WASTE: F/P - Black; E - Municipal Trash Bin Stable for 28 days at room temperature Expires in days from D ate PlasmaLyte A 1,000 mL, Rate: Inactive [place] PH-7.4 1,000 mL 50 ml/hr, 2018 Medical Infuse over: 20 Center hr, Route: IV, Dosing Weight 81.364 kg, Total Volume: 1,000, Start date: 09/24/17 19:32:00 CDT, Duration: 30 day, Stop date: 10/24/17 19:31:00 CDT, 2.02, [id number]: (Same as: Isolyte S PH 7.4) Insulin 30 unit, 0.3 No Longer [place] Glargine 100 mL, Route: Active 2018 Medical UNT/ML SUB-Q, Drug Center Injectable form: SOLN, Solution Bedtime, Dosing [Lantus] Weight 81.364, kg, Start date: 09/24/17 17:17:00 CDT, Stop date: 10/23/17 21:00:00 CDTNotes: (Same as: Lantus) Do not hold insulin without contacting prescriber WASTE: F/P - Black; E - Municipal Trash Bin "single patient use only" Flomax 0.4 mg, 1 cap, No Longer [place] Route: PO, Drug Active 2017 Medical form: CAP, Center After Dinner, Dosing Weight 81.364, kg, Start date: 09/24/17 17:00:00 CDT, Duration: 30 day, Stop date: 10/23/17 17:00:00 CDTNotes: (Same As: Flomax) "Do Not Crush" clopidogrel 75 mg, 1 tab, No Longer [place] Route: PO, Drug Active 2017 Medical form: TAB, Center Daily, Dosing Weight 100, kg, Start date: 09/24/17 9:00:00 CDT, Duration: 30 day, Stop date: 10/23/17 9:00:00 CDTNotes: (Same As: Plavix) Insulin regular 2 unit, 0.02 Inactive [place] mL, Route: 2018 Medical SUB-Q, Drug Center form: SOLN, TID-Before Meals, Dosing Weight 100, kg, PRN Blood Glucose Results, Start date: 09/24/17 3:48:00 CDT, Duration: 30 day, Stop date: 10/24/17 3:47:00 CDTNotes: (Same as: Humulin R) Roll in palms of hands gently; Do not shake vigorously. "single patient use only" (Restricted to patients requiring a dose > 60 units) WASTE: F/P - Black; E - Municipal Trash Bin Stable for 28 days at room temperature Expires in days from D ate Dextrose 50% 25 gm, 50 mL, Inactive [facility] Syringe Route: IVP, 2018 Medical Drug Form: INJ, Center Dosing Weight 100, kg, PRN, PRN Blood Glucose Results, Start date: 09/24/17 3:48:00 CDT, Duration: 30 day, Stop date: 10/24/17 3:47:00 CDT Glucagon 1 mg, Route: Inactive [place] IM, Drug form: 2018 Medical PDR/INJ, PRN, Center Dosing Weight 100, kg, PRN Blood Glucose Results, Start date: 09/24/17 3:48:00 CDT, Duration: 30 day, Stop date: 10/24/17 3:47:00 CDT Simvastatin 80 mg, 2 tab, No Longer [facility] Route: PO, Drug Active 2017 Medical form: TAB, Center Bedtime, Dosing Weight 100, kg, Start date: 09/23/17 21:00:00 CDT, Duration: 30 day, Stop date: 10/22/17 21:00:00 CDTNotes: (Same as: Zocor) Dextrose 50% 25 gm, 50 mL, No Longer [facility] Syringe Route: IVP, Active 2018 Medical Drug Form: INJ, Center Dosing Weight 100, kg, PRN, PRN Abnormal Lab Result, Start date: 09/23/17 15:40:00 CDT, Duration: 30 day, Stop date: 10/23/17 15:39:00 CDT, For FSBG Insulin regular 12 unit, 0.12 No Longer [place] mL, Route: Active 2018 Medical SUB-Q, Drug Center form: SOLN, PRN, Dosing Weight 100, kg, PRN Abnormal Lab Result, Start date: 09/23/17 15:40:00 CDT, Duration: 30 day, Stop date: 10/23/17 15:39:00 CDT, For FSBG >=200 mg/dLNotes: (Same as: Humulin R) Roll in palms of hands gently; Do not shake vigorously. "single patient use only" (Restricted to patients requiring a dose > 60 units) WASTE: F/P - Black; E - Municipal Trash Bin Stable for 28 days at room temperature Expires in days from D ate remove patch 1 patch, Route: No Longer [place] TOP, Q24H, Drug Active 2017 Medical form: ERFILM, Center Start date: 09/23/17 14:00:00 CDT, Duration: 30 day, Stop date: 10/22/17 14:00:00 CDT Tylenol 650 mg, Route: Inactive [place] PO, ONCE, 2017 Medical Dosing Weight Center 100, kg, Start date: 09/23/17 13:48:00 CDT, Stop date: 09/23/17 13:48:00 CDT Insulin regular 6 unit, Route: Inactive [place] SUB-Q, ONCE, 2017 Medical Dosing Weight Center 100, kg, Start date: 09/23/17 10:43:00 CDT, Stop date: 09/23/17 10:43:00 CDT Insulin regular 8 unit, Route: Inactive [place] SUB-Q, ONCE, 2017 Medical Dosing Weight Center 100, kg, Start date: 09/23/17 7:25:00 CDT, Stop date: 09/23/17 7:25:00 CDT isosorbide 30 mg=1 tab, On Hold [place] mononitrate 30 PO, QAM, # 30 2018 Medical mg oral tablet, tab, 0 Center extended Refill(s) release simvastatin 80 80 mg=1 tab, On Hold [place] mg oral tablet PO, Bedtime, # 2018 Medical 30 tab, 0 Center Refill(s) clopidogrel 75 75 mg=1 tab, On Hold [place] mg oral tablet PO, Daily, # 90 2018 Medical tab, 0 Center Refill(s) Versed 1 mg, Route: Inactive [place] IVP, ONCE, 2017 Medical Dosing Weight Center 100, kg, Priority: STAT, Start date: 09/23/17 2:36:00 CDT, Stop date: 09/23/17 2:36:00 CDT Ketamine 10 mg, Route: Inactive [place] IV, ONCE, 2018 Medical Dosing Weight Center 100, kg, Start date: 09/23/17 2:36:00 CDT, Stop date: 09/23/17 2:36:00 CDT Epinephrine 10 mL, Route: Inactive [place] 0.01 MG/ML / SUB-Q, Drug 2018 Medical Lidocaine Form: INJ, Center Hydrochloride Dosing Weight 10 MG/ML 100, kg, ONCE, Injectable STAT, Start Solution date: 09/23/17 2:09:00 CDT, Stop date: 09/23/17 2:09:00 CDTNotes: (Same as: Xylocaine w/Epinephrine) Lidocaine 1 patch, Route: No Longer [place] Hydrochloride TOP, Q24H, Drug Active 2017 Medical 0.05 MG/MG form: FILM, Center Transdermal Start date: Patch 09/23/17 [Lidoderm] 2:00:00 CDT, Duration: 30 day, Stop date: 10/22/17 2:00:00 CDTNotes: Apply only once for up to 12 hours in a 24-hour period (12 hours on and 12 hours off). (Same as: Lidoderm) "Remove old patch before application of new patch" Lovenox 30 mg, 0.3 mL, No Longer [place] Route: SUB-Q, Active 2017 Medical Drug form: INJ, Center [id number], Dosing Weight 100, kg, Priority: STAT, Start date: 09/23/17 1:29:00 CDT, Duration: 30 day, Stop date: 10/22/17 14:00:00 CDTNotes: (Same as: Lovenox) Acetaminophen 1 gm, 2 tab, No Longer [place] Route: PO, Drug Active 2017 Medical form: TAB, Center Q6H-02, Dosing Weight 100, kg, Priority: NOW, Start date: 09/23/17 1:28:00 CDT, Duration: 30 day, Stop date: 10/22/17 20:00:00 CDTNotes: Max acetaminophen 4000 mg/day (4 gm/day). (Same as: Tylenol Extra Strength) gabapentin 300 mg, 1 cap, No Longer [facility] Route: PO, Drug Active 2017 Medical form: CAP, Center Q8H-01, Dosing Weight 100, kg, Priority: NOW, Start date: 09/23/17 1:28:00 CDT, Duration: 30 day, Stop date: 10/23/17 1:00:00 CDTNotes: (Same as: Neurontin) Morphine 4 mg, Route: Inactive [facility] IVP, ONCE, 2018 Medical Dosing Weight Center 100, kg, Priority: STAT, Start date: 09/23/17 1:25:00 CDT, Stop date: 09/23/17 1:25:00 CDT Zofran 4 mg, Route: Inactive [facility] IVP, Drug form: 2018 Medical INJ, ONCE, Center Dosing Weight 100, kg, Priority: STAT, Start date: 09/23/17 1:25:00 CDT, Stop date: 09/23/17 1:25:00 CDT iodixanol 130 mL, Route: Inactive [facility] IVP, Drug Form: 2018 Medical SOLN, kg, Center ONCALL, STAT, Start date: 09/23/17 0:12:00 CDT, Duration: 1 doses or times, Dose=2.2ml/kg, Max [id number] -- "To be infused by Radiology Staff ONLY" Saline Flush 10 mL, Route: No Longer [facility] 0.9% IVP, Drug Form: Active 2017 Medical INJ, kg, PRN, Center PRN Line Flush, Start date: 09/22/17 23:51:00 CDT, Duration: 30 day, Stop date: 10/22/17 23:50:00 CDTNotes: (Same as: BD Posiflush) Allergies, Adverse Reactions, Alerts Substance Category Reaction Severity Reaction Status Date Comments Source type Reported penicillins Assertion Severe Drug Active [facility] tetracyclines Assertion Drug Active [facility] ampicillin Assertion Drug Active [facility] codeine Assertion Drug Active [facility] ASA/butalbita Assertion PCN, Drug Active [facility] l/caffeine/co CYCLOSPORI, [facility] deine PCN, [place] CYCLOSPORI Demerol Assertion Drug Active [facility] Center Immunizations Immunization Date Given Site Status Last Comments Source Updated diphtheria/pertus 09/23/2017 Left completed [facility] sis, acel/tetanus deltoid [facility] Results Order Name Results Value Reference Date Interpretation Comments Source Range CHEM PANEL Magnesium Lvl 2.3 mg/dL 1.8 - 2.4 09/[address] CHEM PANEL Phosphorus 2.5 mg/dL 2.5 - 4.5 09/[address] ELECTROLYTE AGAP 9.5 meq/L 10.0 - 09/26 [facility] [address] [facility] ELECTROLYTE eGFR 84 09/26 Result Comment: The eGFR is calculated using the CKD-EPI formula. In most young, healthy individuals the eGFR will be >90 mL/ min/1.73m2. The eGFR declines with age. An eGFR of 60-89 may be normal in [facility] mL/min/1.7 some populations, particularly the elderly, for whom the CKD-EPI formula has not been extensively validated. Use of the eGFR is not recommended in the following populations: [address] Individuals with unstable creatinine concentrations, including patients and those with serious co-morbid conditions. Patients with extremes in muscle mass or diet. The data above are obtained from the National Kidney Disease Education Program (NKDEP) which additionally recommends that when the eGFR is used in patients with extremes of body mass index for purposes of drug dosing, the eGFR should be multiplied by the estimated BMI. ELECTROLYTE Calcium Lvl 8.2 mg/dL 8.5 - 10.5 09/[address] ELECTROLYTE CO2 30 meq/L 24 - 32 09/[address] ELECTROLYTE Potassium Lvl 4.5 meq/L 3.5 - 5.1 09/[address] ELECTROLYTE Chloride Lvl 100 meq/L 95 - 109 09/[address] ELECTROLYTE Sodium Lvl 135 meq/L 135 - 145 09/[address] ELECTROLYTE Creatinine 0.92 mg/dL 0.50 - 09/26 [facility] Lvl 1.40 /[address] [place] [address] ELECTROLYTE Glucose Lvl 377 mg/dL 70 - 99 09/[address] ELECTROLYTE BUN 15 mg/dL 7 - 22 09/[address] HEMATOLOGY Monocytes # 0.8 K/CMM 0.0 - 0.8 09/[address] [place] [address] HEMATOLOGY Microcyte 2+ None Seen 09/26 [facility] Center (09/26/17 7:03 AM) HEMATOLOGY Segs-Bands # 2.7 K/CMM 1.5 - 8.1 09/26 [facility] [address] [place] [address] HEMATOLOGY Lymphocytes # 0.7 K/CMM 1.0 - 5.5 09/[address] HEMATOLOGY Monocytes 19.4 % 2.0 - 12.0 09/[address] HEMATOLOGY Lymphocytes 15.7 % 20.0 - 09/26 [facility] [address] [facility] HEMATOLOGY Segs 63.2 % 45.0 - 09/26 [facility] [address] [facility] HEMATOLOGY Eosinophils 1.2 % 0.0 - 4.0 09/[address] HEMATOLOGY Basophils 0.5 % 0.0 - 1.0 09/[address] HEMATOLOGY RDW 18.5 % 11.5 - 09/26 [facility] [address] [facility] HEMATOLOGY Platelet 199 K/CMM 133 - 450 09/26 [facility] [address] [place] [address] HEMATOLOGY MCHC 30.9 g/dL 32.0 - 09/[address] [place] [address] [facility] HEMATOLOGY MPV 8.3 fL 7.4 - 10.4 09/[address] HEMATOLOGY WBC 4.2 K/CMM 3.7 - 10.4 09/[address] HEMATOLOGY RBC 3.92 M/CMM 4.70 - 09/[address] [place] [address] [facility] HEMATOLOGY Hgb 8.6 g/dL 14.0 - 09/[address] [place] [address] [facility] HEMATOLOGY MCH 21.9 pg 27.0 - 09/26 [facility] [address] [facility] HEMATOLOGY MCV 70.9 fL 80.0 - 09/[address] [place] [address] [facility] HEMATOLOGY Hct 27.8 % 42.0 - 09/[address] [place] [address] [facility] PARATHYROID Ca Norm WB 1.15 1.05 - 09/26 [facility] PROFILE mMol/L [address]. [facility] PARATHYROID Ca Ion WB 1.17 1.05 - 09/26 [facility] PROFILE mMol/L [address]. [facility] Spine Spine EXAM: XR THORACIC SPINE 2 VIEWS 09/25 - [facility] thoracic 2 thoracic - Medical views DX views DX This report was dictated by a Supervisor Shipping/ Fellow. I have personally reviewed the images as Center well as the Resident's interpretation and agree with the findings. DATE: 2017 10:44 AM CDT Read by: Rigoberto Francisco ( Fellow Resident: Rigoberto Francisco (Fellow Dictated Date/time: 09/26/17 10:19 Electronically Signed by: Isai Wayne MD 09/26/17 12:00 FINAL REPORT INDICATION: - UPRIGHT COMPARISON: None. TECHNIQUE: AP and lateral radiographs of the thoracic spine FINDINGS: Minimal height loss of the T3-T6 vertebral bodies is redemonstrated, which is better appreciated on comparison CT. No interval loss of vertebral body height or change in spinal alignment. Mini mal multilevel degenerative changes of thoracic spine are redemonstrated. Sternotomy wires are again noted overlying the chest. No paraspinous soft tissue abnormality. IMPRESSION: Minimal height loss of the T3-T6 vertebral bodies, better appreciated on prior CT. No interval loss of vertebral body height or change in spinal alignment. CHEM PANEL Phosphorus 3.6 mg/dL 2.5 - 4.5 09/[address] CHEM PANEL eGFR 77 09/25 Result Comment: The eGFR is calculated using the CKD-EPI formula. In most young, healthy individuals the eGFR will be >90 mL/ min/1.73m2. The eGFR declines with age. An eGFR of 60-89 may be normal in [facility] mL/min/1. some populations, particularly the elderly, for whom the CKD-EPI formula has not been extensively validated. Use of the eGFR is not recommended in the following populations: [address] Individuals with unstable creatinine concentrations, including patients and those with serious co-morbid conditions. Patients with extremes in muscle mass or diet. The data above are obtained from the National Kidney Disease Education Program (NKDEP) which additionally recommends that when the eGFR is used in patients with extremes of body mass index for purposes of drug dosing, the eGFR should be multiplied by the estimated BMI. CHEM PANEL Calcium Lvl 8.5 mg/dL 8.5 - 10.5 09/[address] CHEM PANEL Creatinine 0.98 mg/dL 0.50 - 09/25 [place] Lvl 1.40 /[address] [facility] CHEM PANEL BUN 25 mg/dL 7 - 22 09/[address] CHEM PANEL Sodium Lvl 138 meq/L 135 - 145 09/[address] CHEM PANEL Chloride Lvl 106 meq/L 95 - 109 09/[address] CHEM PANEL Potassium Lvl 5.3 meq/L 3.5 - 5.1 09/[address] CHEM PANEL AGAP 11.3 meq/L 10.0 - 09/25 [facility] [address] [facility] CHEM PANEL CO2 26 meq/L 24 - 32 09/[address] CHEM PANEL Glucose Lvl 157 mg/dL 70 - 99 09/[address] CHEM PANEL Magnesium Lvl 2.5 mg/dL 1.8 - 2.4 09/[address] HEMATOLOGY Segs 70.6 % 45.0 - 09/25 [facility] [address] [facility] HEMATOLOGY Microcyte 2+ None Seen 09/[address] [place] [address]* [place] (09/25/17 4:06 AM) HEMATOLOGY Monocytes # 1.1 K/CMM 0.0 - 0.8 09/[address] HEMATOLOGY Lymphocytes # 0.8 K/CMM 1.0 - 5.5 09/[address] HEMATOLOGY Basophils 0.4 % 0.0 - 1.0 09/[address] HEMATOLOGY Segs-Bands # 4.6 K/CMM 1.5 - 8.1 09/[address] HEMATOLOGY Eosinophils 0.2 % 0.0 - 4.0 09/[address] HEMATOLOGY Monocytes 17.1 % 2.0 - 12.0 09/[address] HEMATOLOGY Lymphocytes 11.7 % 20.0 - 09/25 [facility] [address] [facility] HEMATOLOGY RDW 18.3 % 11.5 - 09/25 [facility] [address] [facility] HEMATOLOGY Platelet 191 K/CMM 133 - 450 09/[address] HEMATOLOGY MCH 21.9 pg 27.0 - 09/25 [facility] [address] [facility] HEMATOLOGY MCHC 31.3 g/dL 32.0 - 09/25 [facility] [place] [address] [facility] HEMATOLOGY Hct 28.0 % 42.0 - 09/[address] [facility] HEMATOLOGY MCV 70.1 fL 80.0 - 09/25 [facility] [address] [facility] HEMATOLOGY Hgb 8.8 g/dL 14.0 - 09/[address] [facility] HEMATOLOGY WBC 6.5 K/CMM 3.7 - 10.4 09/[address] [facility] HEMATOLOGY RBC 4.00 M/CMM 4.70 - 09/[address] [place] [address] [facility] HEMATOLOGY MPV 8.4 fL 7.4 - 10.4 09/[address] [facility] PARATHYROID Ca Ion WB 1.09 1.05 - 09/25 [facility] PROFILE mMol/L [address]. [facility] PARATHYROID Ca Norm WB 1.10 1. - 09/25 [facility] PROFILE mMol/L [address]. [facility] CHEM PANEL eGFR 41 09/24 Result Comment: The eGFR is calculated using the CKD-EPI formula. In most young, healthy individuals the eGFR will be >90 mL/ min/1.73m2. The eGFR declines with age. An eGFR of 60-89 may be normal in [facility] mL/min/1. some populations, particularly the elderly, for whom the CKD-EPI formula has not been extensively validated. Use of the eGFR is not recommended in the following populations: [address] Individuals with unstable creatinine concentrations, including patients and those with serious co-morbid conditions. Patients with extremes in muscle mass or diet. The data above are obtained from the National Kidney Disease Education Program (NKDEP) which additionally recommends that when the eGFR is used in patients with extremes of body mass index for purposes of drug dosing, the eGFR should be multiplied by the estimated BMI. CHEM PANEL Calcium Lvl 8.3 mg/dL 8.5 - 10.5 09/[address] [facility] CHEM PANEL BUN 30 mg/dL 7 - 22 09/[address] [facility] CHEM PANEL AGAP 13.1 meq/L 10.0 - 09/[address] [facility] CHEM PANEL Creatinine 1.66 mg/dL 0.50 - 09/24 [facility] Lvl 1.[address] [facility] CHEM PANEL Sodium Lvl 134 meq/L 135 - 145 09/[address] [facility] CHEM PANEL Potassium Lvl 5.1 meq/L 3.5 - 5.1 09/[address] [facility] CHEM PANEL Chloride Lvl 101 meq/L 95 - 109 09/[address] CHEM PANEL CO2 25 meq/L 24 - 32 09/[address] CHEM PANEL Glucose Lvl 530 mg/dL 70 - 99 09/24 Result Comment: [facility] Result(s) called to Radha at 09/24/2017 19:37 by PUNEET. Read back OK. Chest 1view Chest 1view EXAM: XR CHEST 1 VIEW 09/24 - [facility] DX DX /2017 - [facility] DATE: 09/24/2017 9:12 AM CDT Read by: Chau Brambila MD Dictated Date/time: 09/24/17 12:02 Electronically Signed by: Chau Brambila MD 09/24/17 12:03 FINAL REPORT INDICATION: - Hypoxemia COMPARISON: 09/22/2017 TECHNIQUE: AP chest FINDINGS: Lines, tubes and hardware: Median sternotomy wires are present. Lungs and pleura: A calcified granuloma seen in the right lung base. Mild bibasilar atelectasis is seen. No definite pleural effusion or pneumothorax is seen. Heart and mediastinum: The cardiomediastinal silhouette is unchanged. Atherosclerotic calcification affects the aortic arch. Bones: Left-sided rib fractures are better evaluated on the recent CT from 09/22/2017. IMPRESSION: 1. Mild bibasilar atelectasis. HEMATOLOGY Platelet 242 K/CMM 133 - 450 09/[address] [place] [address] HEMATOLOGY MPV 8.0 fL 7.4 - 10.4 09/23 [facility] [address] [place] [address] HEMATOLOGY MCH 21.5 pg 27.0 - 09/23 [facility] [address] [facility] HEMATOLOGY MCV 69.4 fL 80.0 - 09/23 [facility] [address] [facility] HEMATOLOGY MCHC 30.9 g/dL 32.0 - 09/23 [facility] [address] [facility] HEMATOLOGY RDW 18.6 % 11.5 - 09/23 [facility] [address] [facility] HEMATOLOGY Hct 31.1 % 42.0 - 09/[address] [place] [address] [facility] HEMATOLOGY WBC 8.3 K/CMM 3.7 - 10.4 09/[address] HEMATOLOGY RBC 4.48 M/CMM 4.70 - 09/23 [facility] [address] [facility] HEMATOLOGY Hgb 9.6 g/dL 14.0 - 09/23 [facility] [address] [facility] HEMATOLOGY Hypochrom 1+ None Seen 09/[address] (09/23/17 4:12 PM) [place] HEMATOLOGY Plt Morph Normal 09/23 [facility] (09/23/17 4:12 PM) [place] HEMATOLOGY Anisocyte 1+ None Seen 09/23 [facility] *ABN* [place] (09/23/17 4:12 PM) HEMATOLOGY Segs 76.6 % 45.0 - 09/23 [facility] [address] [facility] HEMATOLOGY Eosinophils 0.2 % 0.0 - 4.0 09/[address] HEMATOLOGY Lymphocytes 9.8 % 20.0 - 09/23 [facility] [address] [facility] HEMATOLOGY Monocytes 13.1 % 2.0 - 12.0 09/[address] HEMATOLOGY Basophils 0.3 % 0.0 - 1.0 09/[address] HEMATOLOGY Lymphocytes # 0.8 K/CMM 1.0 - 5.5 09/[address] HEMATOLOGY Monocytes # 1.1 K/CMM 0.0 - 0.8 09/[address] HEMATOLOGY Microcyte 2+ None Seen 09/23 [facility] [address] [place] [address] *ABN* [place] (09/23/17 4:12 PM) HEMATOLOGY Segs-Bands # 6.4 K/CMM 1.5 - 8.1 09/[address] CHEM PANEL Lactic Acid 1.7 mMol/L 0.5 - 2.2 09/[address] SPECIAL Hgb A1C 12.0 % <=5.6 % 09/23 [facility] [facility] CHEM PANEL Lactic Acid 1.3 mMol/L 0.5 - 2.2 09/[address] DRUG SCREEN U Phencyc Scr Negative Negative 09/23 [facility] [address] [place] [address] *NA* Center (09/23/17 2:07 AM) DRUG SCREEN UDS Note See Note 09/23 [facility] (09/23/17 2:07 AM) Center DRUG SCREEN U Julissa Scr Negative Negative 09/23 Medical *NA* Center (09/23/17 2:07 AM) DRUG SCREEN U Benzodia Positive Negative 09/23 [facility] *ABN* [place] (09/23/17 2:07 AM) DRUG SCREEN U Amph Scr Negative Negative 09/23 Medical *NA* [place] (09/23/17 2:07 AM) DRUG SCREEN U Cocaine Scr Positive Negative 09/23 [facility] *ABN* [place] (09/23/17 2:07 AM) DRUG SCREEN U Cannab Scr Negative Negative 09/23 [facility] *NA* [place] (09/23/17 2:07 AM) DRUG SCREEN U Opiate Scr Positive Negative 09/23 [facility] *ABN* [place] (09/23/17 2:07 AM) URINE AND UA Mucus None Seen None Seen 09/23 [facility] (09/23/17 2:07 AM) [place] URINE AND UA Bacteria None Seen None Seen 09/23 [facility] (09/23/17 2:07 AM) [place] URINE AND UA Hyal Cast 0-2 0 - 2 09/23 [facility] (09/23/17 2:07 AM) [place] URINE AND UA RBC 0-2 /HPF 0 - 2 09/23 [facility] URINE AND UA WBC 0-2 /HPF None Seen 09/23 [facility] /[address] [facility] URINE AND UA Sq Epi Rare /LPF Few /LPF 09/23 [facility] [facility] URINE AND UA Spec Grav 1.010 <=1.030 09/[address] URINE AND UA Turbidity Clear Clear 09/23 [facility] (09/23/17 2:07 AM) [place] URINE AND UA Color Yellow Yellow 09/23 [facility] *NA* [place] (09/23/17 2:07 AM) URINE AND UA Ketones Negative Negative 09/23 [facility] *NA* [place] (09/23/17 2:07 AM) URINE AND UA Glucose >=1000 Negative 09/23 [facility] mg/dL mg/dL /[address] [facility] URINE AND UA pH 6.0 5.0 - 8.0 09/23 [facility] URINE AND UA Leuk Est Negative Negative 09/23 [facility] (09/23/17 2:07 AM) [place] URINE AND UA 0.2 EU/dL 0.1 - 1.0 09/23 [facility] Urobilinogen /[address] [facility] URINE AND UA Bili Negative Negative 09/23 [facility] *NA* Center (09/23/17 2:07 AM) URINE AND UA Protein 30 mg/dL Negative 09/23 [facility] STOOL mg/dL /[address] [facility] URINE AND UA Nitrite Negative Negative 09/23 [facility] (09/23/17 2:07 AM) [place] URINE AND UA Blood Trace Negative 09/23 [facility] *ABN* [place] (09/23/17 2:07 AM) CHEM PANEL Lactic Acid 2.1 mMol/L 0.5 - 2.2 09/[address] [facility] HEMATOLOGY Hypochrom 1+ None Seen 09/23 [facility] (09/22/17 11:50 PM) [place] HEMATOLOGY Anisocyte 1+ None Seen 09/23 [facility] *ABN* [place] (09/22/17 11:50 PM) HEMATOLOGY Eosinophils # 0.1 K/CMM 0.0 - 0.5 09/[address] HEMATOLOGY Plt Morph Normal 09/23 [facility] (09/22/17 11:50 PM) [place] HEMATOLOGY R-time Rapid 0.5 min 0.4 - 0.7 09/[address] HEMATOLOGY K-time Rapid 0.8 min 0.6 - 2.3 09/[address] HEMATOLOGY Angle Rapid 79 degrees 64 - 80 09/[address] HEMATOLOGY [place] 0.4 min 09/[address] HEMATOLOGY ACT (TEG) 97 s 86 - 118 09/[address] HEMATOLOGY G-value Rapid 10.4 K 5.0 - 11.6 09/23 [facility] d/sc [facility] HEMATOLOGY Max Amplitude 68 mm 52 - 71 09/[address] HEMATOLOGY Estimated % 0.8 % 0.0 - 7.5 09/23 [facility] Lysis [facility] BLOOD BANK Antibody Scrn Negative 09/23 [facility] RESULTS /2017 Medical (09/22/17 11:18 PM) Center BLOOD BANK ABO/Rh O POS 09/23 [facility] RESULTS /2017 [facility] Center Facial bone Facial bone EXAM: CT FACIAL BONES WITHOUT CONTRAST 09/22 [facility] wo contrast wo contrast /2017 - Medical CT CT This report was dictated by a Supervisor Shipping/Fellow. I have personally reviewed the images as Center well as the Resident's interpretation and agree with the findings. DATE: 09/22/2017 11:30 PM CDT Read by: Flakita Garcia MD Resident: Flakita Garcia MD Dictated Date/time: 09/23/17 06:27 Electronically Signed by: Brando Hron MD 09/23/17 08:34 FINAL REPORT INDICATION: trauma - [facility] [place] COMPARISON: None TECHNIQUE: Volumetric CT acquisition of the facial bones without contrast. Axial, coronal and sagittal reconstructions. IV contrast: None. DLP: 502 mGy-cm UT SECTION: ER FINDINGS: The examination is somewhat limited by motion artifact. Bones: Nondisplaced fracture of the right nasal bone (series 7, image 31) is present. There is a minimally displaced fracture of indeterminate age along the base of the left nasal bone adjacent to the l acrimal duct, seen best on image 30 of series 10. The mandible is intact, and the temporomandibular joints are well-aligned. Mucosal thickening is present within the right maxillary sinus and ethmoidal air cells. The remainder of the paranasal sinuses and mastoid air cells are otherwise clear. Note is made of a remote fracture deformity of the left frontal skull. Soft tissues: Right periorbital soft tissue swelling is present, along with soft tissue swelling about the nose and right premaxillary regions. No acute abnormality of the globes is seen. Cataract surgi irasema changes are noted bilaterally. There is no intraconal hematoma. No radiopaque foreign body is identified. IMPRESSION: 1. Nondisplaced right nasal bone fracture. 2. Minimally displaced fracture of indeterminate age along the base of the left nasal bone adjacent to the lacrimal duct. 3. Soft tissue swelling in the right periorbital and premaxillary regions as well as about the nose. 4. Remote fracture deformity of the left frontal skull. 5. Mucosal thickening within the right maxillary sinus and ethmoidal air cells. Chest/Abdom Chest/Abdomen EXAM: CT CHEST WITH CONTRAST 09/22 - [facility] en/Pelvis w /Pelvis w IV /2018 - Medical IV contrast contrast CT EXAM: CT ABDOMEN AND PELVIS WITH CONTRAST This report was dictated by a Supervisor Shipping/Fellow. I have personally reviewed the images as Center CT well as the Resident's interpretation and agree with the findings. Read by: Flakita Garcia MD Resident: Flakita Garcia MD Dictated Date/time: 09/23/17 00:27 DATE: 09/22/2017 11:48 PM CDT Electronically Signed by: Brando Horn MD 09/23/17 09:30 FINAL REPORT INDICATION: trauma - [facility] [place] ADDITIONAL INFORMATION: '72 yo male brought in for NURSING HOME, +LOC, L hip deform , hx of dementia, CA, pelvic binder placed for hypotension, no helmet.' COMPARISON: None TECHNIQUE: Volumetric CT acquisition of the chest, abdomen and pelvis following intravenous administration of contrast. Delayed imaging was then performed through the abdomen and pelvis, using a radiati on reduction technique. Axial, coronal and sagittal reformats. Examination was degraded by motion artifact secondary to patient combativeness despite medication while patient was on the CT scanner. Contrast phases: Venous and delayed IV contrast: 130 mL of Visipaque 320 Oral contrast: None. DLP: 2962.4 mGy-cm UT SECTION: ER FINDINGS: Within the limitations of marked motion degradation throughout the scan: Lines and tubes: None. Lower Neck: Supraclavicular soft tissues are unremarkable. Thoracic Aorta and Mediastinum: No mediastinal hematoma or thoracic aortic injury. There is no pericardial effusion. The heart is normal in size. Coronary arterial calcifications are noted, along with atherosclerotic disease of the thoracic aorta. The patient is status post median sternotomy. Lungs, Pleura, Diaphragm: Bibasilar dependent subsegmental atelectasis is present. There is a 0.7 cm calcified granuloma within the right lower lobe, series 5 image 45. No pulmonary contusions. The lung s are otherwise clear. No pleural effusion or pneumothorax. No diaphragmatic injury. Liver and biliary tree: Normal. No injury. No biliary abnormality. Gallbladder: Surgically absent. Pancreas: Normal. No injury. Spleen: Scattered punctate calcifications are present, likely representing the sequelae of prior granulomatous disease. Adrenals: Normal. No injury. Kidneys and ureters: Normal. No injury. Bladder: Normal. No injury. Reproductive organs: No injury. Gastrointestinal tract: Normal. No bowel injury. Peritoneum and retroperitoneum: No fluid collections or free air. Lymph nodes: Normal. Vasculature: Extensive atherosclerotic disease of the abdominal aorta and its branches.. Spine/ Bones: There are small superior endplate compression deformities of the T3-T6 vertebral bodies, with up to 10% vertebral body height loss at the level of T6. No retropulsion of fracture fragments . There are mild buckle fractures of the anterior aspects of the left fourth through sixth ribs. Multilevel degenerative changes are present throughout the thoracic spine. Soft tissues: Large ventral abdominal wall hernia is present containing fat and multiple nondilated loops of bowel. IMPRESSION: 1. Small superior endplate compression deformities of the T3-T6 vertebral bodies, with up to 10% vertebral body height loss. No retropulsion of fracture fragments. 2. Mild buckle fractures of the anterior aspects of the left fourth through sixth ribs. 3. Otherwise no acute injury of the thorax, abdomen or pelvis. 4. Large hernia of the ventral abdominal wall containing fat and nondilated loops of bowel. 5. Atherosclerotic disease of the thoracoabdominal aorta and its branches. Spine Spine EXAM: CT CERVICAL SPINE WITHOUT CONTRAST 09/22 - [facility] cervical wo cervical - Medical contrast CT contrast CT This report was dictated by a Supervisor Shipping/Fellow. I have personally reviewed the images as Center (ER) (ER) well as the Resident's interpretation and agree with the findings. DATE: 09/22/2017 11:17 PM CDT Read by: Flakita Garcia MD Resident: Flakita Garcia MD Dictated Date/time: 09/23/17 00:19 Electronically Signed by: Brando Horn MD 09/23/17 08:24 FINAL REPORT INDICATION: trauma - [facility] [place] ADDITIONAL INFORMATION: '72 yo male brought in for NURSING HOME, +LOC, L hip deform , hx of dementia, CA, pelvic binder placed for hypotension, no helmet.' COMPARISON: TECHNIQUE: Volumetric acquisition of the cervical spine without contrast. Axial, sagittal and coronal reconstructions. IV contrast: None. DLP: 960.8 mGy-cm UT SECTION: ER FINDINGS: The spine is imaged from the skull base to the level of T1 . Exaggerated cervical lordosis is present, which may be secondary to patient positioning or degenerative changes. No acute fracture or malalignment is identified. Multilevel degenerative changes of the cervical spine are present, with disc height loss at the levels of C5-C6 and C6-C7. Uncovertebral facet hypertroph y and marginal osteophytosis is present throughout the mid and lower cervical spine, resulting in moderate bilateral neural foraminal narrowing at the levels of C5-C6 and C6-C7. There is facet arthropathy with fusion of the right C4-C5 facet joint. No acute soft tissue abnormality is identified. Emphysematous changes are noted within the included lung apices. IMPRESSION: 1. No acute abnormality. 2. Multilevel degenerative changes, worse at the levels of C5-C6, and C6- C7, with disc height loss and moderate bilateral neuroforaminal narrowing. Neck CTA Neck CTA EXAM: CT ANGIOGRAM OF THE NECK 09/22 [facility] This report was dictated by a Supervisor Shipping/Fellow. I have personally reviewed the images as Center well as the Resident's interpretation and agree with the findings. DATE: 09/22/2017 11:48 PM CDT Read by: Flakita Garcia MD Resident: Flakita Garcia MD Dictated Date/time: 09/23/17 01:09 Electronically Signed by: Apollo Ryan MD 09/23/17 02:09 FINAL REPORT INDICATION: trauma - [facility] [place] COMPARISON: None TECHNIQUE: Rapid acquisition spiral CT images of the neck were obtained between the aortic arch and the skull base during intravenous infusion of iodinated contrast for the purposes of CT angiography. 3-D CT angio graphic images are created using maximum intensity projection technique at the acquisition workstation. The source images are also presented for interpretation. IV contrast: 130 mL Visipaque 320 FINDINGS: Extensive bilateral upper lobe centrilobular and paraseptal emphysema is present. Aortic arch: There is a common origin of the brachiocephalic and left common carotid arteries from the aortic arch, a normal anatomic variant. No origin stenosis is identified. The vertebral artery origins are patent bilaterally. Carotid arteries: The cervical common carotid arteries and cervical internal carotid arteries have a normal course, caliber, and contour. No stenosis of the carotid bifurcations or internal carotid zia katja is present. There is no evidence of vascular injury. Vertebral arteries:The right vertebral artery is dominant. The vertebral arteries have a normal course, caliber and contour. The visible intracranial vessels are unremarkable. The visible intracranial and extracranial venous structures are normal. IMPRESSION: Normal CTA of the neck. (All qualitative and quantitative assessments of carotid bifurcation and proximal internal carotid artery stenosis are made referencing the distal internal carotid artery {NASCET criteria}.) Brain wo Brain wo EXAM: CT BRAIN WITHOUT CONTRAST 09/22 - [facility] contrast CT contrast CT /2018 - [facility] This report was dictated by a Supervisor Shipping/Fellow. I have personally reviewed the images as Center well as the Resident's interpretation and agree with the findings. DATE: 09/22/2017 11:48 PM CDT Read by: Flakita Garcia MD Resident: Flakita Garcia MD Dictated Date/time: 09/23/17 00:12 Electronically Signed by: Apollo Ryan MD 09/23/17 04:08 FINAL REPORT INDICATION: trauma - [facility] [place] COMPARISON: None TECHNIQUE: Routine axial images of the brain were obtained using a conventional ct scanner. Reformatted images in the sagittal and coronal plane were included. IV contrast: None. FINDINGS: Non-contrast images of the head demonstrate no edema, hemorrhage, mass lesion or other acute intracranial abnormality. There is no radiographic evidence of increased intracranial pressure. Moderate cerebral atrophy is present. There is focal encephalomalacia in the left anterior frontal region which reflects a remote traumatic injury given its location and the presence of a remote fractur e of the left frontal bone overlying this region. There is scalp soft tissue swelling in the left parietal region, without underlying fracture. Right periorbital soft tissue swelling is also noted. There is also swelling overlying a right nasal bone fracture. There is no fracture of the remainder of the skull, skull base, or visible facial bones. IMPRESSION: 1. No acute intracranial abnormality. 2. Hematoma measuring 6.2 cm of the left parietal scalp. 3. Right periorbital soft tissue swelling. Right nasal bone fracture. 4. No underlying acute skull fracture. 5. Remote fracture of the left frontal bone with underlying encephalomalacia of the anterior inferior frontal lobe indicative of prior contusion. Hip 1 view Hip 1 view DX EXAM: LEFT Hip 1 view DX 09/22 - [facility] DX /[address] [facility] DATE: 09/22/2017 11:23 PM CDT Read by: Brando Horn MD Dictated Date/time: 09/23/17 00:08 Electronically Signed by: Brando Horn MD 09/23/17 00:10 FINAL REPORT INDICATION: trauma - [facility] [place] ADDITIONAL INFORMATION: '72 yo male brought in for NURSING HOME, +LOC, L hip deform , hx of dementia, CA, pelvic binder placed for hypotension, no helmet.' COMPARISON: AP pelvis 09/22/2017 at 2302 hours TECHNIQUE: Single AP view of the left hip labeled "postreduction". FINDINGS: There has been interval reduction of the previously identified left hip dislocation. There is gross alignment of the left femoral head within the acetabular cup. No acute fracture is identifie d. There is a small oval soft tissue calcification adjacent to the greater trochanter likely representing a phlebolith. IMPRESSION: 1. Status post reduction of left hip dislocation. 2. No acute fracture identified. Chest 1view Chest 1view EXAM: Chest [facility] DX 09/22 - [facility] DX DX /2017 [facility] DATE: 09/22/2017 11:02 PM CDT Read by: Brando Horn MD Dictated Date/time: 09/22/17 23:59 Electronically Signed by: Brando Horn MD 09/23/17 00:04 FINAL REPORT INDICATION: trauma - [facility] [place] ADDITIONAL HISTORY: '72 yo male brought in for NURSING HOME, +LOC, L hip deform, hx of dementia, CA, pelvic binder placed for hypotension, no helmet.' COMPARISON: None. TECHNIQUE: Portable AP supine chest with a total of 1 image(s). The extreme lower costophrenic recesses are partially excluded on the image. FINDINGS: Lines, tubes, devices: Numerous cardiac monitoring leads overlie the chest. Lungs: The lungs are adequately inflated without consolidation. There is bibasilar subsegmental atelectasis. There is a 0.7 cm nodular opacity at the right lung base. Pleura: There is no pleural effusion or pneumothorax identified given the technique. Heart and mediastinum: The heart size is normal for technique. The pulmonary vasculature is normal. There is a mildly tortuous thoracic aorta with calcification along the arch. Bones: No acute bony abnormality is identified. Median sternotomy wires are present. Soft Tissue: Scattered debris overlies the right hemithorax. IMPRESSION: 1. Mild bibasilar subsegmental atelectasis. 2. There is a 0.7 cm nodular opacity at the right lung base that may represent a vessel on end or potential nodule. This may be further evaluated with forthcoming CT chest abdomen pelvis. Pelvis AP Pelvis AP DX EXAM: Pelvis AP DX XR PELVIS 1 VIEW 09/22 - [facility] /2017 - [facility] Center DATE: 09/22/2017 11:02 PM CDT Read by: Brando Horn MD Dictated Date/time: 09/23/17 00:04 Electronically Signed by: Brando Horn MD 09/23/17 00:08 FINAL REPORT INDICATION: trauma - [facility] [place] ADDITIONAL HISTORY: '72 yo male brought in for NURSING HOME, +LOC, L hip deform, hx of dementia, CA, pelvic binder placed for hypotension, no helmet.' COMPARISON: None. TECHNIQUE: A single AP supine radiograph of the pelvis. FINDINGS: There is posterior lateral dislocation of the left hip. No acute fracture is identified. There is no SI joint or pubic symphysis diastasis. There is moderate degenerative disc disease of the included lower lumbar spine. There is a round soft tissue density overlying the right hemipelvis that may represent a ventral hernia. Springlike device overlies the left abdomen, likely external to the patient. IMPRESSION: 1. Posterior lateral dislocation of the left hip. 2. No acute fracture identified. 3. Round soft tissue density overlies the right hemipelvis that may represent a ventral hernia. This may be correlated with forthcoming CT chest abdomen pelvis. Femur Femur series EXAM: LEFT Femur series DX, Knee 3 views DX 09/22 - [facility] series DX - Medical EXAM: LEFT Femur series DX, Knee 3 views Center Read by: Brando Horn MD Dictated Date/time: 09/23/17 01:08 DATE: 09/23/2017 12:18 AM CDT Electronically Signed by: Brando Horn MD 09/23/17 01:18 FINAL REPORT INDICATION: - s/p reduction ADDITIONAL INFORMATION: '72 yo male brought in for NURSING HOME, +LOC, L hip deform , hx of dementia, CA, pelvic binder placed for hypotension, no helmet.' COMPARISON: AP pelvis and left hip 09/22/2017. TECHNIQUE: AP and lateral views of the left femur with a total of 4 images ; AP, oblique and lateral views of the left knee. FINDINGS: There has been interval placement of a traction pin along the distal metadiaphyseal region of the left femur. There remains satisfactory alignment of the left hip joint. There is no acute frac ture identified involving the left femur. There is no appreciable soft tissue swelling of the left thigh. There is normal joint spacing and alignment of the left knee. IMPRESSION: 1. Status post traction pin placement along the distal left femur as described. Knee 3 Knee 3 views EXAM: LEFT Femur series DX, Knee 3 views DX 09/22 - [facility] views DX - Medical EXAM: LEFT Femur series DX, Knee 3 views DX Center Read by: Brando Horn MD Dictated Date/time: 09/23/17 01:08 DATE: 09/23/2017 12:18 AM CDT Electronically Signed by: Brando Horn MD 09/23/17 01:18 FINAL REPORT INDICATION: - s/p reduction ADDITIONAL INFORMATION: '72 yo male brought in for NURSING HOME, +LOC, L hip deform , hx of dementia, CA, pelvic binder placed for hypotension, no helmet.' COMPARISON: AP pelvis and left hip 09/22/2017. TECHNIQUE: AP and lateral views of the left femur with a total of 4 images ; AP, oblique and lateral views of the left knee. FINDINGS: There has been interval placement of a traction pin along the distal metadiaphyseal region of the left femur. There remains satisfactory alignment of the left hip joint. There is no acute frac ture identified involving the left femur. There is no appreciable soft tissue swelling of the left thigh. There is normal joint spacing and alignment of the left knee. IMPRESSION: 1. Status post traction pin placement along the distal left femur as described. Vital Signs Vital Sign Value Date Comments Source Respitory Rate 18 09/27/2017 [facility] Systolic (mm Hg) 121 09/27/2017 [facility] Diastolic (mm Hg) 49 09/27/2017 [facility] Heart Rate 92 09/27/2017 [facility] Temperature Oral (F) 99.6 F 09/27/2017 [facility] Respitory Rate 18 09/26/2017 [facility] Heart Rate 84 09/26/2017 [facility] Systolic (mm Hg) 126 09/26/2017 [facility] Diastolic (mm Hg) 67 09/26/2017 [facility] Temperature Oral (F) 97.9 F 09/26/2017 [facility] Respitory Rate 18 09/26/2017 [facility] Systolic (mm Hg) 120 09/26/2017 [facility] Diastolic (mm Hg) 68 09/26/2017 [facility] Heart Rate 86 09/26/2017 [facility] Temperature Oral (F) 97.9 F 09/26/2017 [facility] Height 177.8 cm 09/24/2017 [facility] BMI Calculated 25.74 09/24/2017 [facility] Weight 81.364 09/24/2017 [facility] Encounters Location Location Encounter Encounter Reason Attending ADM DC Status Source Details Type Number For Provider Date Date Visit [facility] [id number] [facility] 09[facility]23 [facility]27 [place] [facility] /[address] [facility] Procedures Procedure Code Date Perfomer Comments Source
[2018-01-26 20:59] LABS: Urine Blood NEGATIVE (NEG); Urine Glucose 1+ (NEG); Urine Protein NEGATIVE (NEG); Urine Specific Gravity <1.005 (1.005-1.030); Urine pH 6.5 (5.0-7.0)
--- NOTE | 2018-01-26 21:14 | ER ---
Nurse's Notes [facility] Name: Rigoberto Hutchins Age: 72 yrs Sex: Male : 1945 Arrival Date: 01/26/2018 Time: 19:32 Bed 13 Private MD: Diagnosis: Presentation: 01/26 19:47 Presenting complaint: Patient states: Blisters to multiple toes on bilateral feet for 3 aj days. Transition of care: patient was not received from another setting of care. Onset of symptoms was January 23, 2018. Risk Assessment: Do you want to hurt yourself or someone else? Patient reports no desire to harm self or others. Initial Sepsis Screen: Does the patient meet any 2 criteria? No. Patient's initial sepsis screen is negative. Does the patient have a suspected source of infection? No. Patient's initial sepsis screen is negative. Care prior to arrival: None. 19:47 Method Of Arrival: Ambulatory aj 19:47 Acuity: SUNDAY 3 aj Triage Assessment: 19:49 General: Appears in no apparent distress. comfortable, Behavior is calm, cooperative, aj appropriate for age. Pain: Complains of pain in right foot and left foot. Neuro: Level of Consciousness is awake, alert, obeys commands, Oriented to person, place, time, situation, Appropriate for age. Respiratory: Airway is patent Respiratory effort is even, unlabored, Respiratory pattern is regular, symmetrical. Derm: Skin is intact, is healthy with good turgor, Skin is pink, warm \T\ dry. normal. Derm: Blisters noted to multiple toes on bilateral feet. 19:50 GI: Abdomen is large hernia noted. aj Historical: - Allergies: 19:49 Ampicillin; aj 19:49 Aspirin; aj 19:49 Codeine; aj 19:49 Demerol; aj 19:49 PENICILLINS; aj 19:49 Tetracycline; aj - Home Meds: 19:49 Insulin: Novolin 70/30 Sub-Q [Active]; isosorbide mononitrate 30 mg Oral Tb24 1 tab aj once daily [Active]; NitroQuick SL 0.4 mg as needed [Active]; Plavix 75 mg Oral tab 1 tab once daily [Active]; Soma 350 mg Oral tab 1 tab 3 times per day [Active]; Vytorin 10-80 10-80 mg Oral tab [Active]; - PMHx: 19:49 Diabetes - IDDM; Hepatitis; Hyperlipidemia; Hernia; aj - PSHx: 19:49 Hernia repair; Cholecystectomy; CABG; aj - Immunization history:: Adult Immunizations up to date. - Social history:: Smoking status: Patient uses tobacco products, smokes one-half pack cigarettes per day. - Ebola Screening: : Patient negative for fever greater than or equal to 101.5 degrees Fahrenheit, and additional compatible Ebola Virus Disease symptoms Patient denies exposure to infectious person Patient denies travel to an Ebola-affected area in the 21 days before illness onset No symptoms or risks identified at this time. Screenin:09 Abuse screen: Denies threats or abuse. Denies injuries from another. Nutritional ao screening: No deficits noted. Tuberculosis screening: No symptoms or risk factors identified. Fall Risk None identified. Assessment: 20:06 General: Appears in no apparent distress. comfortable, Behavior is calm, cooperative, ao appropriate for age. Pain: Complains of pain in back and left foot and right foot. Neuro: Level of Consciousness is awake, alert, obeys commands, Oriented to person, place, time, situation, Appropriate for age Moves all extremities. Full function Speech is normal, Facial symmetry appears normal. Cardiovascular: Heart tones S1 S2 Capillary refill < 3 seconds Patient's skin is warm and dry. Respiratory: Airway is patent Respiratory effort is even, unlabored, Respiratory pattern is regular, symmetrical, Breath sounds are diminished bilaterally. GI: Abdomen is non-distended. GI: Bowel sounds present X 4 quads. Reports abdominal hernia. : No signs and/or symptoms were reported regarding the genitourinary system. EENT: No signs and/or symptoms were reported regarding the EENT system. Derm: Skin is intact, Skin temperature is warm. Musculoskeletal: Circulation, motion, and sensation intact. Range of motion: intact in all extremities, Swelling present in lower extremities. 21:08 Reassessment: Patient came out and stated that he was leaving. Patient was explain that ao an IV had to be started and we had an order for labs. Patient stated that why and IV and Labs. Patient then elope. Vital Signs: 19:49 BP 137 / 54; Pulse 74; Resp 18; Temp 97.9; Pulse Ox 98% on R/A; Weight 77.11 kg; Height aj 5 ft. 11 in. (180.34 cm); 19:49 Body Mass Index 23.71 (77.11 kg, 180.34 cm) ED Course: 19:32 Patient arrived in ED. ag3 19:48 Triage completed. aj 19:49 Arm band placed on left wrist. Patient placed in an exam room. aj 19:58 Gaurav Chun PA is PHCP. cp 19:58 Zeke Klein MD is Attending Physician. cp 20:06 Mayur Blackwell, RN is Primary Nurse. ao 20:09 Patient has correct armband on for positive identification. court recording monitor on. Pulse ao ox on. NIBP on. 20:37 Attending Physician role handed off by Zeke Klein MD cp 20:37 Portillo Loo MD is Attending Physician. cp 21:09 No provider procedures requiring assistance completed. Patient did not have IV access ao during this emergency room visit. Administered Medications: No medications were administered Outcome: 21:10 Eloped ao 21:10 Eloped from patient exam room, after seeing physician patient elope and stated that he does not need an IV or lab to be done 21:10 Condition: stable 21:10 Condition: stable 21:14 Patient left the ED. ao Signatures: Ara Barrientos, RN RN Gaurav Hayes PA PA cp Mayur Blackwell, RN RN Cristina Albert ag3
[2018-01-26 21:18] VITALS: BP 137/54; TEMP 97.9; O2SAT 98
--- NOTE | 2018-01-27 21:14 | EDPHYS ---
Physician Documentation [facility] Name: Rigoberto Hutchins Age: 72 yrs Sex: Male : 1945 Arrival Date: 01/26/2018 Time: 19:32 Bed 13 Private MD: ED Physician Portillo Loo HPI: 01/26 20:45 This 72 yrs old Male presents to ER via Ambulatory with complaints of cp BLISTERS ON FEET. 20:45 The patient presents with open wounds. The complaints affect the multiple toes of feet. cp Context: resulted from an unknown cause, the patient can fully bear weight. Onset: The symptoms/episode began/occurred 3 day(s) ago. Associated signs and symptoms: Pertinent negatives calf tenderness, fever. Patient reports he is currently taking oral Bactrim for decubitus ulcer in coccyx area and sees DR Mixon for wound management. Historical: - Allergies: 19:49 Ampicillin; aj 19:49 Aspirin; aj 19:49 Codeine; aj 19:49 Demerol; aj 19:49 PENICILLINS; aj 19:49 Tetracycline; aj - Home Meds: 19:49 Insulin: Novolin 70/30 Sub-Q [Active]; isosorbide mononitrate 30 mg Oral Tb24 1 tab aj once daily [Active]; NitroQuick SL 0.4 mg as needed [Active]; Plavix 75 mg Oral tab 1 tab once daily [Active]; Soma 350 mg Oral tab 1 tab 3 times per day [Active]; Vytorin 10-80 10-80 mg Oral tab [Active]; - PMHx: 19:49 Diabetes - IDDM; Hepatitis; Hyperlipidemia; Hernia; aj - PSHx: 19:49 Hernia repair; Cholecystectomy; CABG; aj - Immunization history:: Adult Immunizations up to date. - Social history:: Smoking status: Patient uses tobacco products, smokes one-half pack cigarettes per day. - Ebola Screening: : Patient negative for fever greater than or equal to 101.5 degrees Fahrenheit, and additional compatible Ebola Virus Disease symptoms Patient denies exposure to infectious person Patient denies travel to an Ebola-affected area in the 21 days before illness onset No symptoms or risks identified at this time. ROS: 20:50 Constitutional: Negative for body aches, chills, fever, poor PO intake. cp 20:50 Eyes: Negative for injury, pain, redness, and discharge. cp 20:50 Cardiovascular: Negative for chest pain, edema, palpitations. 20:50 Respiratory: Negative for cough, shortness of breath, wheezing. 20:50 Abdomen/GI: Negative for abdominal pain, nausea, vomiting, and diarrhea, black/tarry stool, rectal bleeding. 20:50 Skin: Positive for of the right foot and left foot, open wounds. 20:50 Neuro: Positive for numbness, of the right foot and left foot, Negative for altered mental status, headache. 20:50 All other systems are negative. Exam: 20:55 Constitutional: The patient appears in no acute distress, alert, awake, non-toxic, well cp developed, well nourished. 20:55 Head/Face: Normocephalic, atraumatic. cp 20:55 Eyes: Periorbital structures: appear normal, Conjunctiva: normal, no exudate, no injection, Sclera: no appreciated abnormality, Lids and lashes: appear normal, bilaterally. 20:55 ENT: External ear(s): are unremarkable, Nose: is normal, Mouth: Lips: moist, Oral mucosa: moist, Posterior pharynx: is normal, airway is patent, no erythema, no exudate, Voice: is normal. 20:55 Chest/axilla: Inspection: normal, Palpation: is normal, no crepitus, no tenderness. 20:55 Cardiovascular: Rate: normal. 20:55 Respiratory: the patient does not display signs of respiratory distress, Respirations: normal, no use of accessory muscles, no retractions, no splinting, no tachypnea, labored breathing, is not present, Breath sounds: are clear throughout, no decreased breath sounds, no stridor, no wheezing. 20:55 Abdomen/GI: Inspection: large hernia noted lower abdomen, Bowel sounds: active, all cp quadrants. 20:55 Back: pain, is absent, ROM is normal. 20:55 Skin: noted multiple open wounds on multiple toes of feet with mild swelling and mild advancing erythema. 20:55 Neuro: Orientation: to person, place \T\ time. Mentation: lucid, able to follow commands, cp Motor: moves all fours, strength is normal, Sensation: numbness, that is mild, of the right foot and left foot. Vital Signs: 19:49 BP 137 / 54; Pulse 74; Resp 18; Temp 97.9; Pulse Ox 98% on R/A; Weight 77.11 kg; Height aj 5 ft. 11 in. (180.34 cm); 19:49 Body Mass Index 23.71 (77.11 kg, 180.34 cm) aj MDM: 19:58 Patient medically screened. cp 21:14 Data reviewed: vital signs, nurses notes. cp 01/26 20:55 Order name: Urine Dipstick--Ancillary (enter results) ms Administered Medications: No medications were administered Disposition: 01/27 14:47 Co-signature as Attending Physician, Portillo Loo MD I agree with the assessment and wa plan of care. Disposition: 01/26/18 21:14 Patient left the facility after being seen by provider. - Patient left due to (see nurse's notes). Signatures: Dispatcher [employer] Ara Turcios RN RN Gaurav Hayes PA PA cp Ortiz, Alex RN RN Portillo Helm MD MD id Corrections: (The following items were deleted from the chart) 01/26 21:14 21:14 01/26/2018 21:14 Patient left the facility after being seen by provider. Reason ao stated they are leaving due to (see nurse's notes). ao
== END 2018-01-26 21:14 | disposition left against medical advice (07) ==
LOC: ER 19:29
DX: S90.829A Blister (nonthermal), unspecified foot, initial encounter (principal); E11.9 Type 2 diabetes mellitus without complications; E78.5 Hyperlipidemia, unspecified; Z95.1 Presence of aortocoronary bypass graft; F17.210 Nicotine dependence, cigarettes, uncomplicated; Z79.01 Long term (current) use of anticoagulants; Z79.82 Long term (current) use of aspirin; Z88.0 Allergy status to penicillin; Z88.1 Allergy status to other antibiotic agents; Z88.5 Allergy status to narcotic agent; Z88.8 Allergy status to other drugs, medicaments and biological substances
CPT/HCPCS: 81003; 99284

== ENCOUNTER 2018-03-27 14:50 | Observation (INO) | payer OTHER ==
--- OUTSIDE RECORDS SUMMARY | 2018-03-27 14:53 | XMS REPORT | Clinical Summary ---
:1945 Author Organization [facility] Address [address] [place] [address] Care Team Providers Name Role Phone Asked, No Pcp Primary Care Provider Unavailable Allergies Active Allergy Reactions Severity Noted Date Comments Ampicillin Anaphylaxis High 12/20/2016 Aspirin Anaphylaxis High 12/20/2016 Codeine Anaphylaxis High 12/20/2016 Meperidine Anaphylaxis High 12/20/2016 Penicillins Anaphylaxis High 12/20/2016 Tetracycline Anaphylaxis High 12/20/2016 Medications No known medications Active Problems Not on file Social History Tobacco Use Types Packs/Day Years Used Date Former Smoker Alcohol Use Drinks/Week oz/Week Comments No Sex Assigned at Date Recorded Not on file Job Start Date Occupation Industry Not on file Not on file Not on file Travel History Travel Start Travel End No recent travel history available. Last Filed Vital Signs Not on file Plan of Treatment Health Maintenance Due Date Last Done Comments COLON CANCER SCREENING 1996 SHINGRIX VACCINE (1 of 2) 1996 ZOSTER VACCINE 2006 PNEUMOCOCCAL POLYSACCHARIDE VACCINE AGE 65 AND OVER 09/26/2011 PNEUMOCOCCAL-13 09/26/2011 INFLUENZA VACCINE 11/15/2017 Results Not on fileafter 03/26/2017 Insurance Payer Benefit Plan / Group Subscriber ID Type Phone Address MEDICARE MEDICARE PART A AND B xxxxxxxxxx Medicare [place], [place] BCBS [employer] xxxxxxxxxxxx PPO Advance Directives Patient has advance care planning documents on file. For more information, please contact:[phone] [place] [address]
--- OUTSIDE RECORDS SUMMARY | 2018-03-27 14:54 | XMS REPORT | Continuity of Care Document ---
:1945 Author Organization Interface Problems Problem Status Onset Classification Date Comments Source Date Reported LIFE FLIGHT Active [address] GROUP HOME Active [address] L HIP Active [facility] DISLOCATION [address] [place] [address] POSTERIOR Active [facility] DISLOCATION OF Medical LEFT HIP, INITI Center Medications Medication Details Route Status Patient Ordering Order Source Instructions Provider Date Nicotine 7 mg, Route: No Longer [facility], Drug form: Active 2017 Medical ERFILM, Daily, Center Dosing Weight 81.364, kg, Start date: 09/26/17 9:00:00 CDT, Duration: 30 day, Stop date: 10/25/17 9:00:00 CDT Insulin Lispro 10 unit, 0.1 No Longer [facility] mL, Route: Active 2017 Medical SUB-Q, [...] D ate Nicotine 7 mg, Route: Inactive [facility], Drug form: 2018 Medical ERFILM, Daily, Center Dosing Weight 81.364, kg, Start date: 09/25/17 14:23:00 CDT, Duration: 30 day, Stop date: 10/25/17 9:00:00 CDT Nicotine 21 mg, 1 patch, No Longer [facility] Route: TOP, Active 2017 Medical Drug form: Center ERFILM, Daily, Dosing Weight 81.364, kg, Start date: 09/25/17 12:00:00 CDT, Duration: 30 day, Stop date: 10/25/17 9:00:00 CDTNotes: (Same as: Habitrol) "Remove old patch before application of new patch" WASTE: F/P - P Waste Black; E - P Waste Black Insulin 10 unit, Route: Inactive [place] Glargine 100 SUB-Q, Daily, 2018 Medical UNT/ML Dosing Weight Center Injectable 81.364, kg, Solution Start date: 09/25/17 9:10:00 CDT, Duration: 30 day, Stop date: 10/25/17 9:00:00 CDT POLYETHYLENE 17 gm, 1 pkt, No Longer [place] GLYCOL 3350 Route: PO, Drug Active 2017 Medical form: PWDR, Center Daily, Dosing Weight 81.364, kg, Start date: 09/25/17 9:00:00 CDT, Duration: 30 day, Stop date: 10/24/17 9:00:00 CDTNotes: Dissolve in 8 oz of water or juice. (Same as: Miralax) sennosides, [facility] 8.6 mg, 1 tab, No Longer [place] Route: PO, Drug Active 2017 Medical Form: TAB, Center Dosing Weight 81.364, kg, Daily, Start date: 09/25/17 9:00:00 CDT, Duration: 30 day, Stop date: 10/24/17 9:00:00 CDTNotes: (Same as: Senokot) Docusate 100 mg, 1 cap, No Longer [place] Route: PO, Drug Active 2017 Medical form: CAP, Center Daily, Dosing Weight 81.364, kg, Start date: 09/25/17 9:00:00 CDT, Duration: 30 day, Stop date: 10/24/17 9:00:00 CDTNotes: (Same as: Colace) (Do Not Crush) Insulin Lispro 15 unit, 0.15 No Longer [place] mL, Route: Active 2017 Medical SUB-Q, Drug [...] S PH 1,000 mL, Rate: No Longer [facility] 7.4 1,000 mL 150 ml/hr, Active 2018 Medical Infuse over: Center 6.7 hr, Route: IV, Dosing Weight 81.364 kg, Total Volume: 1,000, Start date: 09/24/17 20:51:00 CDT, Duration: 30 day, Stop date: 10/24/17 20:50:00 CDT, 2.02, [id number]: (Same as: Isolyte S PH 7.4) Isolyte S 1,000 mL, 1000 Inactive [facility] PH-7.4 (Bolus) ml/hr, Route: 2018 Medical IV IV, Drug Form: Center INJ, Dosing Weight 81.364, kg, ONCE, STAT, Start date: 09/24/17 20:51:00 CDT, Stop date: 09/24/17 20:51:00 CDT, Bolus Dose Infuse over 1 hourNotes: WASTE: F/P - Sink; E - Municipal Trash Bin Insulin regular 10 unit, 0.1 Inactive [facility] mL, Route: 2018 Medical SUB-Q, Drug [...] ate PlasmaLyte A 1,000 mL, Rate: Inactive [place] PH-7.4 1,000 mL 50 ml/hr, 2018 Medical Infuse over: 20 Center hr, Route: IV, Dosing Weight 81.364 kg, Total Volume: 1,000, Start date: 09/24/17 19:32:00 CDT, Duration: 30 day, Stop date: 10/24/17 19:31:00 CDT, 2.02, [id number]: (Same as: Isolyte S PH 7.4) Insulin 30 unit, 0.3 No Longer [place] Glargine 100 mL, Route: Active 2018 Medical UNT/ML SUB-Q, Drug Center Injectable form: SOLN, Solution Bedtime, Dosing [Lantus] Weight 81.364, kg, Start date: 09/24/17 17:17:00 CDT, Stop date: 10/23/17 21:00:00 CDTNotes: (Same as: Lantus) Do not hold insulin without contacting prescriber WASTE: F/P - Black; E - Municipal Trash Bin "single patient use only" Flomax 0.4 mg, 1 cap, No Longer [place] Route: PO, Drug Active 2017 Medical form: CAP, Center After Dinner, Dosing Weight 81.364, kg, Start date: 09/24/17 17:00:00 CDT, Duration: 30 day, Stop date: 10/23/17 17:00:00 CDTNotes: (Same As: Flomax) "Do Not Crush" clopidogrel 75 mg, 1 tab, No Longer [place] Route: PO, Drug Active 2017 Medical form: TAB, Center Daily, Dosing Weight 100, kg, Start date: 09/24/17 9:00:00 CDT, Duration: 30 day, Stop date: 10/23/17 9:00:00 CDTNotes: (Same As: Plavix) Insulin regular 2 unit, 0.02 Inactive [place] mL, Route: 2018 Medical SUB-Q, Drug Center [...] Dextrose 50% 25 gm, 50 mL, Inactive [facility] Syringe Route: IVP, 2018 Medical Drug Form: INJ, Center Dosing Weight 100, kg, PRN, PRN Blood Glucose Results, Start date: 09/24/17 3:48:00 CDT, Duration: 30 day, Stop date: 10/24/17 3:47:00 CDT Glucagon 1 mg, Route: Inactive [place] IM, Drug form: 2018 Medical PDR/INJ, PRN, Center Dosing Weight 100, kg, PRN Blood Glucose Results, Start date: 09/24/17 3:48:00 CDT, Duration: 30 day, Stop date: 10/24/17 3:47:00 CDT Simvastatin 80 mg, 2 tab, No Longer [facility] Route: PO, Drug Active 2017 Medical form: TAB, Center Bedtime, Dosing Weight 100, kg, Start date: 09/23/17 21:00:00 CDT, Duration: 30 day, Stop date: 10/22/17 21:00:00 CDTNotes: (Same as: Zocor) Dextrose 50% 25 gm, 50 mL, No Longer [facility] Syringe Route: IVP, Active 2018 Medical Drug Form: INJ, Center Dosing Weight 100, kg, PRN, PRN Abnormal Lab Result, Start date: 09/23/17 15:40:00 CDT, Duration: 30 day, Stop date: 10/23/17 15:39:00 CDT, For FSBG Insulin regular 12 unit, 0.12 No Longer [place] mL, Route: Active 2018 Medical SUB-Q, Drug [...] 2:36:00 CDT Ketamine 10 mg, Route: Inactive [place] IV, ONCE, 2018 Medical Dosing Weight Center 100, kg, Start date: 09/23/17 2:36:00 CDT, Stop date: 09/23/17 2:36:00 CDT Epinephrine 10 mL, Route: Inactive [place] 0.01 MG/ML / SUB-Q, Drug 2018 Medical Lidocaine Form: INJ, Center Hydrochloride Dosing Weight 10 MG/ML 100, kg, ONCE, Injectable STAT, Start Solution date: 09/23/17 2:09:00 CDT, Stop date: 09/23/17 2:09:00 CDTNotes: (Same as: Xylocaine w/Epinephrine) Lidocaine 1 patch, Route: No Longer [place] Hydrochloride TOP, Q24H, Drug Active 2017 Medical [...] Lovenox 30 mg, 0.3 mL, No Longer [place] Route: SUB-Q, Active 2017 Medical Drug form: INJ, Center [id number], Dosing Weight 100, kg, Priority: STAT, Start date: 09/23/17 1:29:00 CDT, Duration: 30 day, Stop date: 10/22/17 14:00:00 CDTNotes: (Same as: Lovenox) Acetaminophen 1 gm, 2 tab, No Longer [place] Route: PO, Drug Active 2017 Medical form: TAB, Center Q6H-02, Dosing Weight 100, kg, Priority: NOW, Start date: 09/23/17 1:28:00 CDT, Duration: 30 day, Stop date: 10/22/17 20:00:00 CDTNotes: Max acetaminophen 4000 mg/day (4 gm/day). (Same as: Tylenol Extra Strength) gabapentin 300 mg, 1 cap, No Longer [facility] Route: PO, Drug Active 2017 Medical form: CAP, Center Q8H-01, Dosing Weight 100, kg, Priority: NOW, Start date: 09/23/17 1:28:00 CDT, Duration: 30 day, Stop date: 10/23/17 1:00:00 CDTNotes: (Same as: Neurontin) Morphine 4 mg, Route: Inactive [facility] IVP, ONCE, 2018 Medical Dosing Weight Center 100, kg, Priority: STAT, Start date: 09/23/17 1:25:00 CDT, Stop date: 09/23/17 1:25:00 CDT Zofran 4 mg, Route: Inactive [facility] IVP, Drug form: 2018 Medical INJ, ONCE, Center Dosing Weight 100, kg, Priority: STAT, Start date: 09/23/17 1:25:00 CDT, Stop date: 09/23/17 1:25:00 CDT iodixanol 130 mL, Route: Inactive [facility] IVP, Drug Form: 2018 Medical SOLN, kg, Center ONCALL, STAT, Start date: 09/23/17 0:12:00 CDT, Duration: 1 doses or times, Dose=2.2ml/kg, Max lywe=[id number] -- "To be infused by Radiology Staff ONLY" Saline Flush 10 mL, Route: No Longer [facility] 0.9% IVP, Drug Form: Active 2017 Medical INJ, kg, PRN, Center PRN Line Flush, Start date: 09/22/17 23:51:00 CDT, Duration: 30 day, Stop date: 10/22/17 23:50:00 CDTNotes: (Same as: BD Posiflush) Allergies, Adverse Reactions, Alerts Substance Category Reaction Severity Reaction Status Date Comments Source type Reported penicillins Assertion Severe Drug Active [facility] tetracyclines Assertion Drug Active [facility] ampicillin Assertion Drug Active [facility] codeine Assertion Drug Active [facility] ASA/butalbita Assertion PCN, Drug Active [facility] l/caffeine/co CYCLOSPORI, [facility] deine PCN, [place] CYCLOSPORI Demerol Assertion Drug Active [facility] Immunizations Immunization Date Given Site Status Last Comments Source Updated diphtheria/pertus 09/23/2017 Left completed [facility] sis, acel/tetanus deltoid [facility] Results Order Name Results Value Reference Date Interpretation Comments Source Range CHEM PANEL Magnesium Lvl 2.3 mg/dL 1.8 - 2.4 09/[address] CHEM PANEL Phosphorus 2.5 mg/dL 2.5 - 4.5 09/[address] ELECTROLYTE AGAP 9.5 meq/L 10.0 - 09/26 [facility] 20.0 [facility] ELECTROLYTE eGFR 84 09/26 Result Comment: The eGFR is calculated using the CKD-EPI formula. In most young, healthy individuals the eGFR will be >90 mL/ min/1.73m2. The eGFR declines with age. An eGFR of 60-89 may be normal in [facility] mL/min/1.7 some populations, particularly the elderly, for whom the CKD-EPI formula has not been extensively validated. Use of the eGFR is not recommended in the following populations: [address] Individuals with unstable creatinine concentrations, including [...] Lvl 8.2 mg/dL 8.5 - 10.5 09/[address] ELECTROLYTE CO2 30 meq/L 24 - 32 09/[address] ELECTROLYTE Potassium Lvl 4.5 meq/L 3.5 - 5.1 09/[address] ELECTROLYTE Chloride Lvl 100 meq/L 95 - 109 09/[address] ELECTROLYTE Sodium Lvl 135 meq/L 135 - 145 09/[address] ELECTROLYTE Creatinine 0.92 mg/dL 0.50 - 09/26 [facility] Lvl 1.40 /[address] [place] [address] ELECTROLYTE Glucose Lvl 377 mg/dL 70 - 99 09/[address] ELECTROLYTE BUN 15 mg/dL 7 - 22 09/[address] HEMATOLOGY Monocytes # 0.8 K/CMM 0.0 - 0.8 09/[address] [place] [address] HEMATOLOGY Microcyte 2+ None Seen 09/26 [facility]* Center (09/26/17 7:03 AM) HEMATOLOGY Segs-Bands # 2.7 K/CMM 1.5 - 8.1 09/26 [facility] [address] [place] [address] HEMATOLOGY Lymphocytes # 0.7 K/CMM 1.0 - 5.5 09/[address] HEMATOLOGY Monocytes 19.4 % 2.0 - 12.0 09/[address] HEMATOLOGY Lymphocytes 15.7 % 20.0 - 09/26 [facility] 40.0 [facility] HEMATOLOGY Segs 63.2 % 45.0 - 09/26 [facility] 75.0 [facility] HEMATOLOGY Eosinophils 1.2 % 0.0 - 4.0 09/[address] HEMATOLOGY Basophils 0.5 % 0.0 - 1.0 09/[address] HEMATOLOGY RDW 18.5 % 11.5 - 09/26 [facility] 14.5 [facility] HEMATOLOGY Platelet 199 K/CMM 133 - 450 09/26 [facility] [address] [place] [address] HEMATOLOGY MCHC 30.9 g/dL 32.0 - 09/26 [place] 36.0 [facility] HEMATOLOGY MPV 8.3 fL 7.4 - 10.4 09/[address] HEMATOLOGY WBC 4.2 K/CMM 3.7 - 10.4 09/[address] HEMATOLOGY RBC 3.92 M/CMM 4.70 - 09/26 [place] 6.10 [facility] HEMATOLOGY Hgb 8.6 g/dL 14.0 - 09/26 [place] 18.0 [facility] HEMATOLOGY MCH 21.9 pg 27.0 - 09/26 [facility] 31.0 [facility] HEMATOLOGY MCV 70.9 fL 80.0 - 09/26 [place] 94.0 [facility] HEMATOLOGY Hct 27.8 % 42.0 - 09/26 [place] 54.0 [facility] PARATHYROID Ca Norm WB 1.15 1.05 - 09/26 [facility] PROFILE mMol/L 1. [facility] PARATHYROID Ca Ion WB 1.17 1.05 - 09/26 [facility] PROFILE mMol/L 1. [facility] Spine Spine EXAM: XR THORACIC SPINE 2 VIEWS 09/25 - [facility] thoracic 2 thoracic - Medical views DX views DX This report was dictated by a Geometry Teacher/ Fellow. I have personally reviewed the images [...] Phosphorus 3.6 mg/dL 2.5 - 4.5 09/[address] CHEM PANEL eGFR 77 09/25 Result Comment: The eGFR is calculated using the CKD-EPI formula. In most young, healthy individuals the eGFR will be >90 mL/ min/1.73m2. The eGFR declines with age. An eGFR of 60-89 may be normal in [facility] mL/min/1. some populations, particularly the elderly, for whom the CKD-EPI formula has not been extensively validated. Use of the eGFR is not recommended in the following populations: [address] Individuals with unstable creatinine concentrations, including [...] Lvl 8.5 mg/dL 8.5 - 10.5 09/[address] CHEM PANEL Creatinine 0.98 mg/dL 0.50 - 09/25 [place] Lvl 1.40 /2017 [facility] CHEM PANEL BUN 25 mg/dL 7 - 22 09/[address] CHEM PANEL Sodium Lvl 138 meq/L 135 - 145 09/[address] CHEM PANEL Chloride Lvl 106 meq/L 95 - 109 09/[address] CHEM PANEL Potassium Lvl 5.3 meq/L 3.5 - 5.1 09/[address] CHEM PANEL AGAP 11.3 meq/L 10.0 - 09/25 [facility] 20.0 [facility] CHEM PANEL CO2 26 meq/L 24 - 32 09/[address] CHEM PANEL Glucose Lvl 157 mg/dL 70 - 99 09/[address] CHEM PANEL Magnesium Lvl 2.5 mg/dL 1.8 - 2.4 09/[address] HEMATOLOGY Segs 70.6 % 45.0 - 09/25 [facility] 75.0 [facility] HEMATOLOGY Microcyte 2+ None Seen 09/[address] [place] [address]* [place] (09/25/17 4:06 AM) HEMATOLOGY Monocytes # 1.1 K/CMM 0.0 - 0.8 09/[address] HEMATOLOGY Lymphocytes # 0.8 K/CMM 1.0 - 5.5 09/[address] HEMATOLOGY Basophils 0.4 % 0.0 - 1.0 09/[address] HEMATOLOGY Segs-Bands # 4.6 K/CMM 1.5 - 8.1 09/[address] HEMATOLOGY Eosinophils 0.2 % 0.0 - 4.0 09/[address] HEMATOLOGY Monocytes 17.1 % 2.0 - 12.0 09/[address] HEMATOLOGY Lymphocytes 11.7 % 20.0 - 09/25 [facility] 40.0 [facility] HEMATOLOGY RDW 18.3 % 11.5 - 09/25 [facility] 14.5 [facility] HEMATOLOGY Platelet 191 K/CMM 133 - 450 09/[address] HEMATOLOGY MCH 21.9 pg 27.0 - 09/25 [facility] 31.0 [facility] HEMATOLOGY MCHC 31.3 g/dL 32.0 - 09/25 [facility] [place] 36.0 [facility] HEMATOLOGY Hct 28.0 % 42.0 - 09/25 54.0 [facility] HEMATOLOGY MCV 70.1 fL 80.0 - 09/25 [facility] 94.0 [facility] HEMATOLOGY Hgb 8.8 g/dL 14.0 - 09/25 18.0 [facility] HEMATOLOGY WBC 6.5 K/CMM 3.7 - 10.4 09/25 [facility] HEMATOLOGY RBC 4.00 M/CMM 4.70 - 09/25 [place] 6.10 [facility] HEMATOLOGY MPV 8.4 fL 7.4 - 10.4 09/25 [facility] PARATHYROID Ca Ion WB 1.09 1.05 - 09/25 [facility] PROFILE mMol/L 1. [facility] PARATHYROID Ca Norm WB 1.10 1. - 09/25 [facility] PROFILE mMol/L 1. [facility] CHEM PANEL eGFR 41 09/24 Result Comment: The eGFR is calculated using the CKD-EPI formula. In most young, healthy individuals the eGFR will be >90 mL/ min/1.73m2. The eGFR declines with age. An eGFR of 60-89 may be normal in [facility] mL/min/1. some populations, particularly the elderly, for whom the CKD-EPI formula has not been extensively validated. Use of the eGFR is not recommended in the following populations: [address] Individuals with unstable creatinine concentrations, including [...] Lvl 8.3 mg/dL 8.5 - 10.5 09/24 [facility] CHEM PANEL BUN 30 mg/dL 7 - 22 09/24 [facility] CHEM PANEL AGAP 13.1 meq/L 10.0 - 09/24 20.0 [facility] CHEM PANEL Creatinine 1.66 mg/dL 0.50 - 09/24 [facility] Lvl 1.40 [facility] CHEM PANEL Sodium Lvl 134 meq/L 135 - 145 09/24 [facility] CHEM PANEL Potassium Lvl 5.1 meq/L 3.5 - 5.1 09/24 2017 [facility] CHEM PANEL Chloride Lvl 101 meq/L 95 - 109 09/[address] CHEM PANEL CO2 25 meq/L 24 - 32 09/[address] CHEM PANEL Glucose Lvl 530 mg/dL 70 - 99 09/24 Result Comment: [facility] Result(s) called to Radha at 09/24/2017 19:37 by PUNEET. Read back OK. Chest 1view Chest 1view EXAM: XR CHEST 1 VIEW 09/24 - [facility] DX DX /2017 - [facility] DATE: 09/24/2017 9:12 AM CDT Read by: [...] Platelet 242 K/CMM 133 - 450 09/[address] [place] [address] HEMATOLOGY MPV 8.0 fL 7.4 - 10.4 09/23 [facility] [address] [place] [address] HEMATOLOGY MCH 21.5 pg 27.0 - 09/23 [facility] 31.0 [facility] HEMATOLOGY MCV 69.4 fL 80.0 - 09/23 [facility] 94.0 [facility] HEMATOLOGY MCHC 30.9 g/dL 32.0 - 09/23 [facility] 36.0 [facility] HEMATOLOGY RDW 18.6 % 11.5 - 09/23 [facility] 14.5 [facility] HEMATOLOGY Hct 31.1 % 42.0 - 09/23 [place] 54.0 [facility] HEMATOLOGY WBC 8.3 K/CMM 3.7 - 10.4 09/[address] HEMATOLOGY RBC 4.48 M/CMM 4.70 - 09/23 [facility] 6.10 [facility] HEMATOLOGY Hgb 9.6 g/dL 14.0 - 09/23 [facility] 18.0 [facility] HEMATOLOGY Hypochrom 1+ None Seen 09/[address] (09/23/17 4:12 PM) [place] HEMATOLOGY Plt Morph Normal 09/23 [facility] (09/23/17 4:12 PM) [place] HEMATOLOGY Anisocyte 1+ None Seen 09/23 [facility] *ABN* [place] (09/23/17 4:12 PM) HEMATOLOGY Segs 76.6 % 45.0 - 09/23 [facility] 75.0 [facility] HEMATOLOGY Eosinophils 0.2 % 0.0 - 4.0 09/[address] HEMATOLOGY Lymphocytes 9.8 % 20.0 - 09/23 [facility] 40.0 [facility] HEMATOLOGY Monocytes 13.1 % 2.0 - 12.0 09/[address] HEMATOLOGY Basophils 0.3 % 0.0 - 1.0 09/[address] HEMATOLOGY Lymphocytes # 0.8 K/CMM 1.0 - 5.5 09/[address] HEMATOLOGY Monocytes # 1.1 K/CMM 0.0 - 0.8 09/[address] HEMATOLOGY Microcyte 2+ None Seen 09/23 [facility] [address] [place] [address] *ABN* [place] (09/23/17 4:12 PM) HEMATOLOGY Segs-Bands # 6.4 K/CMM 1.5 - 8.1 09/[address] CHEM PANEL Lactic Acid 1.7 mMol/L 0.5 - 2.2 09/[address] SPECIAL Hgb A1C 12.0 % <=5.6 % 09/23 [facility]2017 [facility] CHEM PANEL Lactic Acid 1.3 mMol/L 0.5 - 2.2 09/[address] DRUG SCREEN U Phencyc Scr Negative Negative 09/23 [facility] [address] [place] [address] *NA* Center (09/23/17 2:07 AM) DRUG SCREEN UDS Note See Note 09/23 [facility] (09/23/17 2:07 AM) Center DRUG SCREEN U Julissa Scr Negative Negative 09/23 Medical *NA* Center (09/23/17 2:07 AM) DRUG SCREEN U Benzodia Positive Negative 09/[address] [facility] *ABN* [place] (09/23/17 2:07 AM) DRUG SCREEN U Amph Scr Negative Negative 09/23 Medical *NA* [place] (09/23/17 2:07 AM) DRUG SCREEN U Cocaine Scr Positive Negative 09/23 [facility] *ABN* [place] (09/23/17 2:07 AM) DRUG SCREEN U Cannab Scr Negative Negative 09/23 [facility] *NA* [place] (09/23/17 2:07 AM) DRUG SCREEN U Opiate Scr Positive Negative 09/23 [facility] *ABN* [place] (09/23/17 2:07 AM) URINE AND UA Mucus None Seen None Seen 09/23 [facility] (09/23/17 2:07 AM) [place] URINE AND UA Bacteria None Seen None Seen 09/23 [facility] (09/23/17 2:07 AM) [place] URINE AND UA Hyal Cast 0-2 0 - 2 09/23 [facility] (09/23/17 2:07 AM) [place] URINE AND UA RBC 0-2 /HPF 0 - 2 09/23 [facility] URINE AND UA WBC 0-2 /HPF None Seen 09/23 [facility] /2017 [facility] URINE AND UA Sq Epi Rare /LPF Few /LPF 09/[address] [facility]2017 [facility] URINE AND UA Spec Grav 1.010 <=1.030 09/[address] URINE AND UA Turbidity Clear Clear 09/23 [facility] (09/23/17 2:07 AM) [place] URINE AND UA Color Yellow Yellow 09/23 [facility] *NA* [place] (09/23/17 2:07 AM) URINE AND UA Ketones Negative Negative 09/23 [facility] Medical *NA* [place] (09/23/17 2:07 AM) URINE AND UA Glucose >=1000 Negative 09/23 [facility] mg/dL mg/dL /2017 [facility] URINE AND UA pH 6.0 5.0 - 8.0 09/[address] URINE AND UA Leuk Est Negative Negative 09/[address] [facility]2017 [facility] (09/23/17 2:07 AM) [place] URINE AND UA 0.2 EU/dL 0.1 - 1.0 09/23 [facility] Urobilinogen /[address] [place] [address] URINE AND UA Bili Negative Negative 09/23 [facility] [address] [place] [address] *NA* Center (09/23/17 2:07 AM) URINE AND UA Protein 30 mg/dL Negative 09/23 [facility] STOOL mg/dL /2017 [facility] URINE AND UA Nitrite Negative Negative 09/[address] [facility]2017 [facility] (09/23/17 2:07 AM) [place] URINE AND UA Blood Trace Negative 09/23 [facility] [address] [place] [address] *ABN* [place] (09/23/17 2:07 AM) CHEM PANEL Lactic Acid 2.1 mMol/L 0.5 - 2.2 09/23 [facility]2017 [facility] HEMATOLOGY Hypochrom 1+ None Seen 09/23 [facility] [address] [place] [address] (09/22/17 11:50 PM) [place] HEMATOLOGY Anisocyte 1+ None Seen 09/23 [facility] [address] [place] [address] *ABN* [place] (09/22/17 11:50 PM) HEMATOLOGY Eosinophils # 0.1 K/CMM 0.0 - 0.5 09/[address] HEMATOLOGY Plt Morph Normal 09/23 [facility] [address] [place] [address] (09/22/17 11:50 PM) [place] HEMATOLOGY R-time Rapid 0.5 min 0.4 - 0.7 09/[address] HEMATOLOGY K-time Rapid 0.8 min 0.6 - 2.3 09/[address] HEMATOLOGY Angle Rapid 79 degrees 64 - 80 09/[address] HEMATOLOGY [place] 0.4 min 09/[address] HEMATOLOGY ACT (TEG) 97 s 86 - 118 09/[address] HEMATOLOGY G-value Rapid 10.4 K 5.0 - 11.6 09/23 [facility] d/sc [address] [place] [address] HEMATOLOGY Max Amplitude 68 mm 52 - 71 09/[address] HEMATOLOGY Estimated % 0.8 % 0.0 - 7.5 09/23 [facility] Lysis [address] TOXICOLOGY Etoh (%) null 09/[address] TOXICOLOGY Ethanol Lvl null 09/23 [facility] BLOOD BANK Antibody Scrn Negative 09/23 [facility] RESULTS /2017 Medical (09/22/17 11:18 PM) Center BLOOD BANK ABO/Rh O POS 09/23 [facility] RESULTS /2017 [facility] Facial bone Facial bone EXAM: CT FACIAL BONES WITHOUT CONTRAST 09/22 - [facility] wo contrast wo contrast /2017 - [facility] CT CT This report was dictated by a Geometry Teacher/Fellow. I have personally reviewed the images as Center well as the Resident's interpretation and agree with the findings. DATE: 09/22/2017 11:30 PM CDT Read by: Flakita Garcia MD Resident: Flakita Garcia MD Dictated Date/time: 09/23/17 06:27 Electronically Signed by: Brando Horn MD 09/23/17 08:34 FINAL REPORT INDICATION: trauma - [facility] COMPARISON: None TECHNIQUE: Volumetric [...] EXAM: CT CHEST WITH CONTRAST 09/22 - [facility] en/Pelvis w /Pelvis w - Medical IV contrast contrast CT EXAM: CT ABDOMEN AND PELVIS WITH CONTRAST This report was dictated by a Geometry Teacher/Fellow. I have personally reviewed the images as Center CT well as the Resident's interpretation and agree with the findings. Read by: Flakita Garcia MD Resident: Flakita Garcia MD Dictated Date/time: 09/23/17 00:27 DATE: 09/22/2017 11:48 PM CDT Electronically Signed by: Brando Horn MD 09/23/17 09:30 FINAL REPORT INDICATION: trauma - [facility] [place] ADDITIONAL INFORMATION: '72 yo male brought in for GROUP HOME, +LOC, L hip deform , hx of dementia, FL, pelvic binder placed for hypotension, no helmet.' [...] of the thoracoabdominal aorta and its branches. Neck CTA Neck CTA EXAM: CT ANGIOGRAM OF THE NECK 09/22 [facility] This report was dictated by a Geometry Teacher/Fellow. I have personally reviewed the images as Center well as the Resident's interpretation and agree with the findings. DATE: 09/22/2017 11:48 PM CDT Read by: Flakita Garcia MD Resident: Flakita Garcia MD Dictated Date/time: 09/23/17 01:09 Electronically Signed by: Apollo Ryan MD 09/23/17 02:09 FINAL REPORT INDICATION: trauma - [facility] [place] COMPARISON: None TECHNIQUE: Rapid [...] the distal internal carotid artery {NASCET criteria}.) Spine Spine EXAM: CT CERVICAL SPINE WITHOUT CONTRAST 09/22 - [facility] cervical wo cervical - Medical contrast CT contrast CT This report was dictated by a Geometry Teacher/Fellow. I have personally reviewed the images as Center (ER) (ER) well as the Resident's interpretation and agree with the findings. DATE: 09/22/2017 11:17 PM CDT Read by: Flakita Garcia MD Resident: Flakita Garcia MD Dictated Date/time: 09/23/17 00:19 Electronically Signed by: Brando Horn MD 09/23/17 08:24 FINAL REPORT INDICATION: trauma - [facility] [place] ADDITIONAL INFORMATION: '72 yo male brought in for GROUP HOME, +LOC, L hip deform , hx of dementia, FL, pelvic binder placed for hypotension, no helmet.' [...] height loss and moderate bilateral neuroforaminal narrowing. Brain wo Brain wo EXAM: CT BRAIN WITHOUT CONTRAST 09/22 - [facility] contrast CT contrast CT /2018 - Medical This report was dictated by a Geometry Teacher/Fellow. I have personally reviewed the images as Center well as the Resident's interpretation and agree with the findings. DATE: 09/22/2017 11:48 PM CDT Read by: Flakita Garcia MD Resident: Flakita Garcia MD Dictated Date/time: 09/23/17 00:12 Electronically Signed by: Apollo Ryan MD 09/23/17 04:08 FINAL REPORT INDICATION: trauma - [facility] [place] COMPARISON: None TECHNIQUE: Routine [...] inferior frontal lobe indicative of prior contusion. Chest 1view Chest 1view EXAM: Chest 1view DX 09/22 - [facility] DX DX /2018 - [facility] DATE: 09/22/2017 11:02 PM CDT Read by: Brando Horn MD Dictated Date/time: 09/22/17 23:59 Electronically Signed by: Brando Horn MD 09/23/17 00:04 FINAL REPORT INDICATION: trauma - [facility] [place] ADDITIONAL HISTORY: '72 yo male brought in for GROUP HOME, +LOC, L hip deform, hx of dementia, FL, pelvic binder placed for hypotension, no helmet.' [...] evaluated with forthcoming CT chest abdomen pelvis. Hip 1 view Hip 1 view DX EXAM: LEFT Hip 1 view DX 09/22 [facility] DX /2018 [facility] DATE: 09/22/2017 11:23 PM CDT Read by: Brando Horn MD Dictated Date/time: 09/23/17 00:08 Electronically Signed by: Brando Horn MD 09/23/17 00:10 FINAL REPORT INDICATION: trauma - [facility] [place] ADDITIONAL INFORMATION: '72 yo male brought in for GROUP HOME, +LOC, L hip deform , hx of dementia, FL, pelvic binder placed for hypotension, no helmet.'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
[2018-03-27 16:20] LABS: Absolute Lymphocytes (CBC) 0.7 K/uL (0.7-4.9); Absolute Monocytes 0.6 K/uL (0.1-1.3); Absolute Neutrophil 3.4 K/uL (1.8-8.0); Eosinophils % 2.1 % (0-4.4); Hematocrit 36.9 % (39.6-49.0); Lymphocytes % 15.3 % (15.3-44.8); MCV 85.1 fL (80-100); MPV 7.8 fL (7.6-11.3); Monocytes % 11.4 % (3.3-12.3); RBC Red Blood Cell Count 4.33 M/uL (4.33-5.43)
[2018-03-27 16:29] LABS: Protime INR 1.18
--- NOTE | 2018-03-27 16:48 | RAD REPORT ---
EXAM DESCRIPTION: USExtrembhupinder Venous Uni Ltd03/27/2018 4:28 pm CLINICAL HISTORY: left leg swelling. COMPARISON: None. FINDINGS: Left common femoral, superficial femoral, popliteal and posterior tibial veins are compre ssible and demonstrate augmentation. Doppler demonstrates good flow. IMPRESSION: No evidence of deep venous thrombosis involving the left lower extremity.
[2018-03-27 17:00] LABS: Albumin 2.7 g/dL (3.4-5.0); Bilirubin Direct 0.2 mg/dL (0-0.2); Bilirubin Total 0.9 mg/dL (0.2-1.0); C-Reactive Protein 65.1 mg/L (<3.00); CKMB Creatine Kinase MB 3.8 ng/mL (0.3-3.6); Potassium 4.7 mmol/L (3.5-5.1); Protein, Total 7.4 g/dL (6.4-8.2)
[2018-03-27] MEDS ORDERED: NA CHLORIDE 0.9% 1,000 ML ONE (17:00)
[2018-03-27] MEDS ORDERED: NA CHLORIDE 0.9% 500 ML ONE (17:00)
--- NOTE | 2018-03-27 17:44 | EKG ---
Test Date: 2018-03-27 Test Time: 17:20:10 Manager Stars: OMAR MEASUREMENT RESULTS: Intervals: Rate: 61 SC: QRSD: 84 QT: 440 QTc: 442 [place]: P: SC: QRS: 17 T: -19 INTERPRETIVE STATEMENTS: Sinus rhythm T wave abnormality, consider inferior ischemia Abnormal ECG Compared to ECG 10/09/2017 17:24:05 T-wave abnormality now present Myocardial infarct finding no longer present Electronically Signed On 03-27-18 17:44:05 INNER DIAMETER GRINDER TOOL by Hema Palacios
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
[2018-03-27] MEDS ORDERED: VANCOMYCIN 1 GM/250 ML BAG ONE (17:57)
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
[2018-03-27] MEDS ORDERED: Levofloxacin500mg IV 500 MG/100 ML BAG IV ONE (19:37)
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
[2018-03-27] MEDS ORDERED: ALBUTEROL 2.5 MG/3 ML NEB SOL NEB PRN (22:14)
[2018-03-27] MEDS ORDERED: KETOROLAC 30 MG/ML INJ IV PRN ×2 (22:14→23:56)
[2018-03-27] MEDS ORDERED: ACETAMINOPHEN 500 MG TAB PO PRN (22:14)
[2018-03-27] MEDS ORDERED: ONDANSETRON 4 MG/2 ML VIAL IV PRN (22:14)
[2018-03-27] MEDS ORDERED: INSULIN -REGULAR HUMAN 50 UNIT/0.5 ML ML SQ SCH (22:14)
[2018-03-27] MEDS ORDERED: NA CHLORIDE 0.9% 1,000 ML IV SCH (22:14)
[2018-03-27] MEDS ORDERED: IPRATROPIUM BROM 0.5MG/2.5ML NEB PRN (22:14)
[2018-03-27 22:38] VITALS: BMI 23.8
[2018-03-27 22:39] VITALS: O2SAT 97
[2018-03-28 00:24] LABS: Urine Bacteria <20 /HPF (NONE SEEN); Urine Culture Reflex Order NOT NEEDED; Urine RBC NONE SEEN /HPF (NONE SEEN)
[2018-03-28 00:54] VITALS: BP 181/79; TEMP 98
[2018-03-28] MEDS ORDERED: VANCOMYCIN 1 GM in NA CHLORIDE 0.9% 500 ML IVPB SCH (18:00)
[2018-03-28] MEDS ORDERED: Levofloxacin 750mg IV 750 MG/150 ML BAG IV SCH (19:00)
== END 2018-03-28 01:40 | disposition left against medical advice (07) ==
LOC: ER 14:50 → 2ND 21:42
PROVIDERS: ADMIT Internal Medicine; ATTEND Internal Medicine
DX: L03.116 Cellulitis of left lower limb (principal); I25.10 Atherosclerotic heart disease of native coronary artery without angina pectoris; Z86.73 Personal history of transient ischemic attack (TIA), and cerebral infarction without residual deficits; E11.622 Type 2 diabetes mellitus with other skin ulcer; J44.9 Chronic obstructive pulmonary disease, unspecified; Z96.652 Presence of left artificial knee joint; Z95.1 Presence of aortocoronary bypass graft; Z88.6 Allergy status to analgesic agent; Z88.0 Allergy status to penicillin; Z53.21 Procedure and treatment not carried out due to patient leaving prior to being seen by health care provider
CPT/HCPCS: 36415; 71045; 80048; 80076; 81015; 82550; 82553; 82962; 83605; 84145; 85025; 85610; 85730; 86140; 86850; 86900; 86901; 87040; 93005; 93971; 96361; 96365; 96366; 96368; 99285; G0378; J3370; J7030

== ENCOUNTER 2018-04-03 12:43 | Inpatient (IN) | payer OTHER ==
--- OUTSIDE RECORDS SUMMARY | 2018-04-03 12:45 | XMS REPORT | Clinical Summary ---
:1945 Author Organization [facility] Address [address] [place] [address] Care Team Providers Name Role Phone Asked, [...] Last Done Comments COLON CANCER SCREENING 1996 SHINGLES VACCINES (1 of 2) 1996 PNEUMOCOCCAL POLYSACCHARIDE VACCINE AGE 65 AND OVER 09/26/2011 PNEUMOCOCCAL-13 09/26/2011 INFLUENZA VACCINE 11/15/2017 Results Not on fileafter 04/02/2017 Insurance Payer Benefit Plan / Group Subscriber ID Type Phone Address MEDICARE MEDICARE PART A AND B xxxxxxxxxx Medicare [facility] xxxxxxxxxxxx PPO Advance Directives Patient has advance care planning documents on file. For more information, please contact:[id number] [place] [address]
--- OUTSIDE RECORDS SUMMARY | 2018-04-03 12:47 | XMS REPORT | Continuity of Care Document ---
:1945 Author Organization Interface Problems Problem Status Onset Classification Date Comments Source Date Reported LIFE FLIGHT Active [address] ASSISTED Active [address] L HIP Active [facility] DISLOCATION [address] [place] [address] POSTERIOR Active [facility] DISLOCATION OF Medical LEFT HIP, INITI Center Medications Medication Details Route Status Patient Ordering Order Source Instructions Provider Date Nicotine 7 mg, Route: No Longer [facility], Drug form: Active 2017 Medical ERFILM, Daily, Center Dosing Weight 81.364, kg, Start date: 09/26/17 9:00:00 CDT, Duration: 30 day, Stop date: 10/25/17 9:00:00 CDT Insulin Lispro 10 unit, 0.1 No Longer [facility] mL, Route: Active 2017 Medical SUB-Q, [...] D ate Nicotine 7 mg, Route: Inactive [facility], Drug form: 2018 Medical ERFILM, Daily, Center Dosing Weight 81.364, kg, Start date: 09/25/17 14:23:00 CDT, Duration: 30 day, Stop date: 10/25/17 9:00:00 CDT Nicotine 21 mg, 1 patch, No Longer [facility] Route: TOP, Active 2017 Medical Drug form: Center ERFILM, Daily, Dosing Weight 81.364, kg, Start date: 09/25/17 12:00:00 CDT, Duration: 30 day, Stop date: 10/25/17 9:00:00 CDTNotes: (Same as: Habitrol) "Remove old patch before application of new patch" WASTE: F/P - P Waste Black; E - P Waste Black Insulin 10 unit, Route: Inactive [place] Glargine 100 SUB-Q, Daily, 2018 Medical UNT/ML Dosing Weight Center Injectable 81.364, kg, Solution Start date: 09/25/17 9:10:00 CDT, Duration: 30 day, Stop date: 10/25/17 9:00:00 CDT POLYETHYLENE 17 gm, 1 pkt, No Longer [place] GLYCOL 3350 Route: PO, Drug Active 2017 Medical form: PWDR, Center Daily, Dosing Weight 81.364, kg, Start date: 09/25/17 9:00:00 CDT, Duration: 30 day, Stop date: 10/24/17 9:00:00 CDTNotes: Dissolve in 8 oz of water or juice. (Same as: Miralax) sennosides, [facility] 8.6 mg, 1 tab, No Longer [place] Route: PO, Drug Active 2017 Medical Form: TAB, Center Dosing Weight 81.364, kg, Daily, Start date: 09/25/17 9:00:00 CDT, Duration: 30 day, Stop date: 10/24/17 9:00:00 CDTNotes: (Same as: Senokot) Docusate 100 mg, 1 cap, No Longer [place] Route: PO, Drug Active 2017 Medical form: CAP, Center Daily, Dosing Weight 81.364, kg, Start date: 09/25/17 9:00:00 CDT, Duration: 30 day, Stop date: 10/24/17 9:00:00 CDTNotes: (Same as: Colace) (Do Not Crush) Insulin Lispro 15 unit, 0.15 No Longer [place] mL, Route: Active 2017 Medical SUB-Q, Drug [...] S PH 1,000 mL, Rate: No Longer [facility] 7.4 1,000 mL 150 ml/hr, Active 2018 Medical Infuse over: Center 6.7 hr, Route: IV, Dosing Weight 81.364 kg, Total Volume: 1,000, Start date: 09/24/17 20:51:00 CDT, Duration: 30 day, Stop date: 10/24/17 20:50:00 CDT, 2.02, [id number]: (Same as: Isolyte S PH 7.4) Isolyte S 1,000 mL, 1000 Inactive [facility] PH-7.4 (Bolus) ml/hr, Route: 2018 Medical IV IV, Drug Form: Center INJ, Dosing Weight 81.364, kg, ONCE, STAT, Start date: 09/24/17 20:51:00 CDT, Stop date: 09/24/17 20:51:00 CDT, Bolus Dose Infuse over 1 hourNotes: WASTE: F/P - Sink; E - Municipal Trash Bin Insulin regular 10 unit, 0.1 Inactive [facility] mL, Route: 2018 Medical SUB-Q, Drug [...] ate PlasmaLyte A 1,000 mL, Rate: Inactive [place] PH-7.4 1,000 mL 50 ml/hr, 2018 Medical Infuse over: 20 Center hr, Route: IV, Dosing Weight 81.364 kg, Total Volume: 1,000, Start date: 09/24/17 19:32:00 CDT, Duration: 30 day, Stop date: 10/24/17 19:31:00 CDT, 2.02, [id number]: (Same as: Isolyte S PH 7.4) Insulin 30 unit, 0.3 No Longer [place] Glargine 100 mL, Route: Active 2018 Medical UNT/ML SUB-Q, Drug Center Injectable form: SOLN, Solution Bedtime, Dosing [Lantus] Weight 81.364, kg, Start date: 09/24/17 17:17:00 CDT, Stop date: 10/23/17 21:00:00 CDTNotes: (Same as: Lantus) Do not hold insulin without contacting prescriber WASTE: F/P - Black; E - Municipal Trash Bin "single patient use only" Flomax 0.4 mg, 1 cap, No Longer [place] Route: PO, Drug Active 2017 Medical form: CAP, Center After Dinner, Dosing Weight 81.364, kg, Start date: 09/24/17 17:00:00 CDT, Duration: 30 day, Stop date: 10/23/17 17:00:00 CDTNotes: (Same As: Flomax) "Do Not Crush" clopidogrel 75 mg, 1 tab, No Longer [place] Route: PO, Drug Active 2017 Medical form: TAB, Center Daily, Dosing Weight 100, kg, Start date: 09/24/17 9:00:00 CDT, Duration: 30 day, Stop date: 10/23/17 9:00:00 CDTNotes: (Same As: Plavix) Insulin regular 2 unit, 0.02 Inactive [place] mL, Route: 2018 Medical SUB-Q, Drug Center [...] Dextrose 50% 25 gm, 50 mL, Inactive [facility] Syringe Route: IVP, 2018 Medical Drug Form: INJ, Center Dosing Weight 100, kg, PRN, PRN Blood Glucose Results, Start date: 09/24/17 3:48:00 CDT, Duration: 30 day, Stop date: 10/24/17 3:47:00 CDT Glucagon 1 mg, Route: Inactive [place] IM, Drug form: 2018 Medical PDR/INJ, PRN, Center Dosing Weight 100, kg, PRN Blood Glucose Results, Start date: 09/24/17 3:48:00 CDT, Duration: 30 day, Stop date: 10/24/17 3:47:00 CDT Simvastatin 80 mg, 2 tab, No Longer [facility] Route: PO, Drug Active 2017 Medical form: TAB, Center Bedtime, Dosing Weight 100, kg, Start date: 09/23/17 21:00:00 CDT, Duration: 30 day, Stop date: 10/22/17 21:00:00 CDTNotes: (Same as: Zocor) Dextrose 50% 25 gm, 50 mL, No Longer [facility] Syringe Route: IVP, Active 2018 Medical Drug Form: INJ, Center Dosing Weight 100, kg, PRN, PRN Abnormal Lab Result, Start date: 09/23/17 15:40:00 CDT, Duration: 30 day, Stop date: 10/23/17 15:39:00 CDT, For FSBG Insulin regular 12 unit, 0.12 No Longer [place] mL, Route: Active 2018 Medical SUB-Q, Drug [...] 2:36:00 CDT Ketamine 10 mg, Route: Inactive [place] IV, ONCE, 2018 Medical Dosing Weight Center 100, kg, Start date: 09/23/17 2:36:00 CDT, Stop date: 09/23/17 2:36:00 CDT Epinephrine 10 mL, Route: Inactive [place] 0.01 MG/ML / SUB-Q, Drug 2018 Medical Lidocaine Form: INJ, Center Hydrochloride Dosing Weight 10 MG/ML 100, kg, ONCE, Injectable STAT, Start Solution date: 09/23/17 2:09:00 CDT, Stop date: 09/23/17 2:09:00 CDTNotes: (Same as: Xylocaine w/Epinephrine) Lidocaine 1 patch, Route: No Longer [place] Hydrochloride TOP, Q24H, Drug Active 2017 Medical [...] Lovenox 30 mg, 0.3 mL, No Longer [place] Route: SUB-Q, Active 2017 Medical Drug form: INJ, Center [id number], Dosing Weight 100, kg, Priority: STAT, Start date: 09/23/17 1:29:00 CDT, Duration: 30 day, Stop date: 10/22/17 14:00:00 CDTNotes: (Same as: Lovenox) Acetaminophen 1 gm, 2 tab, No Longer [place] Route: PO, Drug Active 2017 Medical form: TAB, Center Q6H-02, Dosing Weight 100, kg, Priority: NOW, Start date: 09/23/17 1:28:00 CDT, Duration: 30 day, Stop date: 10/22/17 20:00:00 CDTNotes: Max acetaminophen 4000 mg/day (4 gm/day). (Same as: Tylenol Extra Strength) gabapentin 300 mg, 1 cap, No Longer [facility] Route: PO, Drug Active 2017 Medical form: CAP, Center Q8H-01, Dosing Weight 100, kg, Priority: NOW, Start date: 09/23/17 1:28:00 CDT, Duration: 30 day, Stop date: 10/23/17 1:00:00 CDTNotes: (Same as: Neurontin) Morphine 4 mg, Route: Inactive [facility] IVP, ONCE, 2018 Medical Dosing Weight Center 100, kg, Priority: STAT, Start date: 09/23/17 1:25:00 CDT, Stop date: 09/23/17 1:25:00 CDT Zofran 4 mg, Route: Inactive [facility] IVP, Drug form: 2018 Medical INJ, ONCE, Center Dosing Weight 100, kg, Priority: STAT, Start date: 09/23/17 1:25:00 CDT, Stop date: 09/23/17 1:25:00 CDT iodixanol 130 mL, Route: Inactive [facility] IVP, Drug Form: 2018 Medical SOLN, kg, Center ONCALL, STAT, Start date: 09/23/17 0:12:00 CDT, Duration: 1 doses or times, Dose=2.2ml/kg, Max wkwd=[id number] -- "To be infused by Radiology Staff ONLY" Saline Flush 10 mL, Route: No Longer [facility] 0.9% IVP, Drug Form: Active 2017 Medical INJ, kg, PRN, Center PRN Line Flush, Start date: 09/22/17 23:51:00 CDT, Duration: 30 day, Stop date: 10/22/17 23:50:00 CDTNotes: (Same as: BD Posiflush) Allergies, Adverse Reactions, Alerts Substance Category Reaction Severity Reaction Status Date Comments Source type Reported penicillins Assertion Severe Drug Active [facility] tetracyclines Assertion Drug Active [facility] ampicillin Assertion Drug Active [facility] codeine Assertion Drug Active [facility] ASA/butalbita Assertion PCN, Drug Active [facility] l/caffeine/co CYCLOSPORI, [facility] deine PCN, [place] CYCLOSPORI Demerol Assertion Drug Active [facility] Center Immunizations Immunization Date Given Site Status Last Comments Source Updated diphtheria/pertus 09/23/2017 Left completed [facility] sis, acel/tetanus deltoid [facility] Results Order Name Results Value Reference Date Interpretation Comments Source Range CHEM PANEL Magnesium Lvl 2.3 mg/dL 1.8 - 2.4 09/[address] CHEM PANEL Phosphorus 2.5 mg/dL 2.5 - 4.5 09/[address] ELECTROLYTE AGAP 9.5 meq/L 10.0 - 09/26 [facility] 20.0 [facility] ELECTROLYTE eGFR 84 09/26 Result Comment: The eGFR is calculated using the CKD-EPI formula. In most young, healthy individuals the eGFR will be >90 mL/ min/1.73m2. The eGFR declines with age. An eGFR of 60-89 may be normal in [facility] mL/min/1.7 some populations, particularly the elderly, for whom the CKD-EPI formula has not been extensively validated. Use of the eGFR is not recommended in the following populations: [address] Individuals with unstable creatinine concentrations, including [...] Lvl 8.2 mg/dL 8.5 - 10.5 09/[address] ELECTROLYTE CO2 30 meq/L 24 - 32 09/[address] ELECTROLYTE Potassium Lvl 4.5 meq/L 3.5 - 5.1 09/[address] ELECTROLYTE Chloride Lvl 100 meq/L 95 - 109 09/[address] ELECTROLYTE Sodium Lvl 135 meq/L 135 - 145 09/[address] ELECTROLYTE Creatinine 0.92 mg/dL 0.50 - 09/26 [facility] Lvl 1.40 /[address] [place] [address] ELECTROLYTE Glucose Lvl 377 mg/dL 70 - 99 09/[address] ELECTROLYTE BUN 15 mg/dL 7 - 22 09/[address] HEMATOLOGY Monocytes # 0.8 K/CMM 0.0 - 0.8 09/[address] [place] [address] HEMATOLOGY Microcyte 2+ None Seen 09/26 [facility]* Center (09/26/17 7:03 AM) HEMATOLOGY Segs-Bands # 2.7 K/CMM 1.5 - 8.1 09/26 [facility] [address] [place] [address] HEMATOLOGY Lymphocytes # 0.7 K/CMM 1.0 - 5.5 09/[address] HEMATOLOGY Monocytes 19.4 % 2.0 - 12.0 09/[address] HEMATOLOGY Lymphocytes 15.7 % 20.0 - 09/26 [facility] 40.0 [facility] HEMATOLOGY Segs 63.2 % 45.0 - 09/26 [facility] 75.0 [facility] HEMATOLOGY Eosinophils 1.2 % 0.0 - 4.0 09/[address] HEMATOLOGY Basophils 0.5 % 0.0 - 1.0 09/[address] HEMATOLOGY RDW 18.5 % 11.5 - 09/26 [facility] 14.5 [facility] HEMATOLOGY Platelet 199 K/CMM 133 - 450 09/26 [facility] [address] [place] [address] HEMATOLOGY MCHC 30.9 g/dL 32.0 - 09/26 [place] 36.0 [facility] HEMATOLOGY MPV 8.3 fL 7.4 - 10.4 09/[address] HEMATOLOGY WBC 4.2 K/CMM 3.7 - 10.4 09/[address] HEMATOLOGY RBC 3.92 M/CMM 4.70 - 09/26 [place] 6.10 [facility] HEMATOLOGY Hgb 8.6 g/dL 14.0 - 09/26 [place] 18.0 [facility] HEMATOLOGY MCH 21.9 pg 27.0 - 09/26 [facility] 31.0 [facility] HEMATOLOGY MCV 70.9 fL 80.0 - 09/26 [place] 94.0 [facility] HEMATOLOGY Hct 27.8 % 42.0 - 09/26 [place] 54.0 [facility] PARATHYROID Ca Norm WB 1.15 1.05 - 09/26 [facility] PROFILE mMol/L 1. [facility] PARATHYROID Ca Ion WB 1.17 1.05 - 09/26 [facility] PROFILE mMol/L 1. [facility] Spine Spine EXAM: XR THORACIC SPINE 2 VIEWS 09/25 - [facility] thoracic 2 thoracic - Medical views DX views DX This report was dictated by a Tape Machine Tailer/ Fellow. I have personally reviewed the images [...] Phosphorus 3.6 mg/dL 2.5 - 4.5 09/[address] CHEM PANEL eGFR 77 09/25 Result Comment: The eGFR is calculated using the CKD-EPI formula. In most young, healthy individuals the eGFR will be >90 mL/ min/1.73m2. The eGFR declines with age. An eGFR of 60-89 may be normal in [facility] mL/min/1. some populations, particularly the elderly, for whom the CKD-EPI formula has not been extensively validated. Use of the eGFR is not recommended in the following populations: [address] Individuals with unstable creatinine concentrations, including [...] Lvl 8.5 mg/dL 8.5 - 10.5 09/[address] CHEM PANEL Creatinine 0.98 mg/dL 0.50 - 09/25 [place] Lvl 1.40 /2017 [facility] CHEM PANEL BUN 25 mg/dL 7 - 22 09/[address] CHEM PANEL Sodium Lvl 138 meq/L 135 - 145 09/[address] CHEM PANEL Chloride Lvl 106 meq/L 95 - 109 09/[address] CHEM PANEL Potassium Lvl 5.3 meq/L 3.5 - 5.1 09/[address] CHEM PANEL AGAP 11.3 meq/L 10.0 - 09/25 [facility] 20.0 [facility] CHEM PANEL CO2 26 meq/L 24 - 32 09/[address] CHEM PANEL Glucose Lvl 157 mg/dL 70 - 99 09/[address] CHEM PANEL Magnesium Lvl 2.5 mg/dL 1.8 - 2.4 09/[address] HEMATOLOGY Segs 70.6 % 45.0 - 09/25 [facility] 75.0 [facility] HEMATOLOGY Microcyte 2+ None Seen 09/[address] [place] [address]* [place] (09/25/17 4:06 AM) HEMATOLOGY Monocytes # 1.1 K/CMM 0.0 - 0.8 09/[address] HEMATOLOGY Lymphocytes # 0.8 K/CMM 1.0 - 5.5 09/[address] HEMATOLOGY Basophils 0.4 % 0.0 - 1.0 09/[address] HEMATOLOGY Segs-Bands # 4.6 K/CMM 1.5 - 8.1 09/[address] HEMATOLOGY Eosinophils 0.2 % 0.0 - 4.0 09/[address] HEMATOLOGY Monocytes 17.1 % 2.0 - 12.0 09/[address] HEMATOLOGY Lymphocytes 11.7 % 20.0 - 09/25 [facility] 40.0 [facility] HEMATOLOGY RDW 18.3 % 11.5 - 09/25 [facility] 14.5 [facility] HEMATOLOGY Platelet 191 K/CMM 133 - 450 09/[address] HEMATOLOGY MCH 21.9 pg 27.0 - 09/25 [facility] 31.0 [facility] HEMATOLOGY MCHC 31.3 g/dL 32.0 - 09/25 [facility] [place] 36.0 [facility] HEMATOLOGY Hct 28.0 % 42.0 - 09/25 54.0 [facility] HEMATOLOGY MCV 70.1 fL 80.0 - 09/25 [facility] 94.0 [facility] HEMATOLOGY Hgb 8.8 g/dL 14.0 - 09/25 18.0 [facility] HEMATOLOGY WBC 6.5 K/CMM 3.7 - 10.4 09/25 [facility] HEMATOLOGY RBC 4.00 M/CMM 4.70 - 09/25 [place] 6.10 [facility] HEMATOLOGY MPV 8.4 fL 7.4 - 10.4 09/25 [facility] PARATHYROID Ca Ion WB 1.09 1.05 - 09/25 [facility] PROFILE mMol/L 1. [facility] PARATHYROID Ca Norm WB 1.10 1. - 09/25 [facility] PROFILE mMol/L 1. [facility] CHEM PANEL eGFR 41 09/24 Result Comment: The eGFR is calculated using the CKD-EPI formula. In most young, healthy individuals the eGFR will be >90 mL/ min/1.73m2. The eGFR declines with age. An eGFR of 60-89 may be normal in [facility] mL/min/1. some populations, particularly the elderly, for whom the CKD-EPI formula has not been extensively validated. Use of the eGFR is not recommended in the following populations: [address] Individuals with unstable creatinine concentrations, including [...] Lvl 8.3 mg/dL 8.5 - 10.5 09/24 [facility] CHEM PANEL BUN 30 mg/dL 7 - 22 09/24 [facility] CHEM PANEL AGAP 13.1 meq/L 10.0 - 09/24 20.0 [facility] CHEM PANEL Creatinine 1.66 mg/dL 0.50 - 09/24 [facility] Lvl 1.40 [facility] CHEM PANEL Sodium Lvl 134 meq/L 135 - 145 09/24 [facility] CHEM PANEL Potassium Lvl 5.1 meq/L 3.5 - 5.1 09/24 2017 [facility] CHEM PANEL Chloride Lvl 101 meq/L 95 - 109 09/[address] CHEM PANEL CO2 25 meq/L 24 - 32 09/[address] CHEM PANEL Glucose Lvl 530 mg/dL 70 - 99 09/24 Result Comment: [facility] Result(s) called to Radha at 09/24/2017 19:37 by PUNEET. Read back OK. Chest 1view Chest 1view EXAM: XR CHEST 1 VIEW 09/24 - [facility] DX DX /2017 - [facility] DATE: 09/24/2017 9:12 AM CDT Read [...] Platelet 242 K/CMM 133 - 450 09/[address] [place] [address] HEMATOLOGY MPV 8.0 fL 7.4 - 10.4 09/23 [facility] [address] [place] [address] HEMATOLOGY MCH 21.5 pg 27.0 - 09/23 [facility] 31.0 [facility] HEMATOLOGY MCV 69.4 fL 80.0 - 09/23 [facility] 94.0 [facility] HEMATOLOGY MCHC 30.9 g/dL 32.0 - 09/23 [facility] 36.0 [facility] HEMATOLOGY RDW 18.6 % 11.5 - 09/23 [facility] 14.5 [facility] HEMATOLOGY Hct 31.1 % 42.0 - 09/23 [place] 54.0 [facility] HEMATOLOGY WBC 8.3 K/CMM 3.7 - 10.4 09/[address] HEMATOLOGY RBC 4.48 M/CMM 4.70 - 09/23 [facility] 6.10 [facility] HEMATOLOGY Hgb 9.6 g/dL 14.0 - 09/23 [facility] 18.0 [facility] HEMATOLOGY Hypochrom 1+ None Seen 09/[address] (09/23/17 4:12 PM) [place] HEMATOLOGY Plt Morph Normal 09/23 [facility] (09/23/17 4:12 PM) [place] HEMATOLOGY Anisocyte 1+ None Seen 09/[address] [facility] *ABN* [place] (09/23/17 4:12 PM) HEMATOLOGY Segs 76.6 % 45.0 - 09/23 [facility] 75.0 [facility] HEMATOLOGY Eosinophils 0.2 % 0.0 - 4.0 09/[address] HEMATOLOGY Lymphocytes 9.8 % 20.0 - 09/23 [facility] 40.0 [facility] HEMATOLOGY Monocytes 13.1 % 2.0 - 12.0 09/[address] HEMATOLOGY Basophils 0.3 % 0.0 - 1.0 09/[address] HEMATOLOGY Lymphocytes # 0.8 K/CMM 1.0 - 5.5 09/[address] HEMATOLOGY Monocytes # 1.1 K/CMM 0.0 - 0.8 09/[address] HEMATOLOGY Microcyte 2+ None Seen 09/23 [facility] [address] [place] [address] *ABN* [place] (09/23/17 4:12 PM) HEMATOLOGY Segs-Bands # 6.4 K/CMM 1.5 - 8.1 09/[address] CHEM PANEL Lactic Acid 1.7 mMol/L 0.5 - 2.2 09/[address] SPECIAL Hgb A1C 12.0 % <=5.6 % 09/23 [facility]2017 [facility] CHEM PANEL Lactic Acid 1.3 mMol/L 0.5 - 2.2 09/[address] DRUG SCREEN U Phencyc Scr Negative Negative 09/23 [facility] [address] [place] [address] *NA* Center (09/23/17 2:07 AM) DRUG SCREEN UDS Note See Note 09/23 [facility] (09/23/17 2:07 AM) Center DRUG SCREEN U Julissa Scr Negative Negative 09/23 Medical *NA* Center (09/23/17 2:07 AM) DRUG SCREEN U Benzodia Positive Negative 09/[address] [facility] *ABN* [place] (09/23/17 2:07 AM) DRUG SCREEN U Amph Scr Negative Negative 09/23 Medical *NA* [place] (09/23/17 2:07 AM) DRUG SCREEN U Cocaine Scr Positive Negative 09/23 [facility] *ABN* [place] (09/23/17 2:07 AM) DRUG SCREEN U Cannab Scr Negative Negative 09/23 [facility] *NA* [place] (09/23/17 2:07 AM) DRUG SCREEN U Opiate Scr Positive Negative 09/23 [facility] *ABN* [place] (09/23/17 2:07 AM) URINE AND UA Mucus None Seen None Seen 09/[address] [facility] (09/23/17 2:07 AM) [place] URINE AND UA Bacteria None Seen None Seen 09/[address] [facility] (09/23/17 2:07 AM) [place] URINE AND UA Hyal Cast 0-2 0 - 2 09/[address] [facility] (09/23/17 2:07 AM) [place] URINE AND UA RBC 0-2 /HPF 0 - 2 09/23 [facility] URINE AND UA WBC 0-2 /HPF None Seen 09/23 [facility] /2017 [facility] URINE AND UA Sq Epi Rare /LPF Few /LPF 09/23 [facility]2017 [facility] URINE AND UA Spec Grav 1.010 <=1.030 09/[address] URINE AND UA Turbidity Clear Clear 09/23 [facility] (09/23/17 2:07 AM) [place] URINE AND UA Color Yellow Yellow 09/[address] [facility] *NA* [place] (09/23/17 2:07 AM) URINE AND UA Ketones Negative Negative 09/23 [facility] Medical *NA* [place] (09/23/17 2:07 AM) URINE AND UA Glucose >=1000 Negative 09/23 [facility] mg/dL mg/dL /2017 [facility] URINE AND UA pH 6.0 5.0 - 8.0 09/[address] URINE AND UA Leuk Est Negative Negative 09/23 [facility]2017 [facility] (09/23/17 2:07 AM) [place] URINE AND UA 0.2 EU/dL 0.1 - 1.0 09/23 [facility] Urobilinogen /[address] [place] [address] URINE AND UA Bili Negative Negative 09/23 [facility] [address] [place] [address] *NA* Center (09/23/17 2:07 AM) URINE AND UA Protein 30 mg/dL Negative 09/23 [facility] STOOL mg/dL /2017 [facility] URINE AND UA Nitrite Negative Negative 09/23 [facility]2017 [facility] (09/23/17 2:07 AM) [place] URINE AND UA Blood Trace Negative 09/23 [facility] [address] [place] [address] *ABN* [place] (09/23/17 2:07 AM) CHEM PANEL Lactic Acid 2.1 mMol/L 0.5 - 2.2 09/23 [facility] /2017 [facility] HEMATOLOGY Hypochrom 1+ None Seen 09/23 [facility] [address] [place] [address] (09/22/17 11:50 PM) [place] HEMATOLOGY Anisocyte 1+ None Seen 09/23 [facility] [address] [place] [address] *ABN* [place] (09/22/17 11:50 PM) HEMATOLOGY Eosinophils # 0.1 K/CMM 0.0 - 0.5 09/[address] HEMATOLOGY Plt Morph Normal 09/23 [facility] [address] [place] [address] (09/22/17 11:50 PM) [place] HEMATOLOGY R-time Rapid 0.5 min 0.4 - 0.7 09/[address] HEMATOLOGY K-time Rapid 0.8 min 0.6 - 2.3 09/[address] HEMATOLOGY Angle Rapid 79 degrees 64 - 80 09/[address] HEMATOLOGY [place] 0.4 min 09/[address] HEMATOLOGY ACT (TEG) 97 s 86 - 118 09/[address] HEMATOLOGY G-value Rapid 10.4 K 5.0 - 11.6 09/23 [facility] d/sc [address] [place] [address] HEMATOLOGY Max Amplitude 68 mm 52 - 71 09/[address] HEMATOLOGY Estimated % 0.8 % 0.0 - 7.5 09/23 [facility] Lysis [address] TOXICOLOGY Etoh (%) null 09/[address] TOXICOLOGY Ethanol Lvl null 09/23 [facility] BLOOD BANK Antibody Scrn Negative 09/23 [facility] RESULTS /2017 Medical (09/22/17 11:18 PM) Center BLOOD BANK ABO/Rh O POS 09/23 [facility] RESULTS /2017 [facility] Facial bone Facial bone EXAM: CT FACIAL BONES WITHOUT CONTRAST 09/22 - [facility] wo contrast wo contrast /2017 - [facility] CT CT This report was dictated by a Tape Machine Tailer/Fellow. I have personally reviewed the images as Center well as the Resident's interpretation and agree with the findings. DATE: 09/22/2017 11:30 PM CDT Read by: Flakita Garcia MD Resident: Flakita Garcia MD Dictated Date/time: 09/23/17 06:27 Electronically Signed by: Brando Horn MD 09/23/17 08:34 FINAL REPORT INDICATION: trauma - [facility] COMPARISON: None TECHNIQUE: Volumetric CT acquisition of [...] EXAM: CT CHEST WITH CONTRAST 09/22 - [facility] en/Pelvis w /Pelvis w - Medical IV contrast contrast CT EXAM: CT ABDOMEN AND PELVIS WITH CONTRAST This report was dictated by a Tape Machine Tailer/Fellow. I have personally reviewed the images as Center CT well as the Resident's interpretation and agree with the findings. Read by: Flakita Garcia MD Resident: Flakita Garcia MD Dictated Date/time: 09/23/17 00:27 DATE: 09/22/2017 11:48 PM CDT Electronically Signed by: Brando Horn MD 09/23/17 09:30 FINAL REPORT INDICATION: trauma - [facility] ADDITIONAL INFORMATION: '72 yo male brought in for ASSISTED, +LOC, L hip deform , hx of dementia, [place], pelvic binder placed for hypotension, no helmet.' [...] EXAM: CT ANGIOGRAM OF THE NECK 09/22 [facility] This report was dictated by a Tape Machine Tailer/Fellow. I have personally reviewed the images as Center well as the Resident's interpretation and agree with the findings. DATE: 09/22/2017 11:48 PM CDT Read by: Flakita Garcia MD Resident: Flakita Garcia MD Dictated Date/time: 09/23/17 01:09 Electronically Signed by: Apollo Ryan MD 09/23/17 02:09 FINAL REPORT INDICATION: trauma - [facility] COMPARISON: None TECHNIQUE: Rapid acquisition spiral CT [...] CT CERVICAL SPINE WITHOUT CONTRAST 09/22 - [facility] cervical wo cervical - Medical contrast CT contrast CT This report was dictated by a Tape Machine Tailer/Fellow. I have personally reviewed the images as Center (ER) (ER) well as the Resident's interpretation and agree with the findings. DATE: 09/22/2017 11:17 PM CDT Read by: Flakita Garcia MD Resident: Flakita Garcia MD Dictated Date/time: 09/23/17 00:19 Electronically Signed by: Brando Horn MD 09/23/17 08:24 FINAL REPORT INDICATION: trauma - [facility] ADDITIONAL INFORMATION: '72 yo male brought in for ASSISTED, +LOC, L hip deform , hx of dementia, RI, pelvic binder placed for hypotension, no helmet.' [...] EXAM: CT BRAIN WITHOUT CONTRAST 09/22 - [facility] contrast CT contrast CT /2018 - Medical This report was dictated by a Tape Machine Tailer/Fellow. I have personally reviewed the images as Center well as the Resident's interpretation and agree with the findings. DATE: 09/22/2017 11:48 PM CDT Read by: Flakita Garcia MD Resident: Flakita Garcia MD Dictated Date/time: 09/23/17 00:12 Electronically Signed by: Apollo Ryan MD 09/23/17 04:08 FINAL REPORT INDICATION: trauma - [facility] COMPARISON: None TECHNIQUE: Routine axial images of [...] 1view EXAM: Chest 1view DX 09/22 - [facility] DX DX /2018 - [facility] DATE: 09/22/2017 11:02 PM CDT Read by: Brando Horn MD Dictated Date/time: 09/22/17 23:59 Electronically Signed by: Brando Horn MD 09/23/17 00:04 FINAL REPORT INDICATION: trauma - [facility] ADDITIONAL HISTORY: '72 yo male brought in for ASSISTED, +LOC, L hip deform, hx of dementia, RI, pelvic binder placed for hypotension, no helmet.' [...] EXAM: LEFT Hip 1 view DX 09/22 [facility] DX /2018 [facility] DATE: 09/22/2017 11:23 PM CDT Read by: Brando Horn MD Dictated Date/time: 09/23/17 00:08 Electronically Signed by: Brando Horn MD 09/23/17 00:10 FINAL REPORT INDICATION: trauma - [facility] ADDITIONAL INFORMATION: '72 yo male brought in for ASSISTED, +LOC, L hip deform , hx of dementia, RI, pelvic binder placed for hypotension, no helmet.' [...] DX XR PELVIS 1 VIEW 09/22 - [facility] DX /2017 - [facility] DATE: 09/22/2017 11:02 PM CDT Read by: Brando Horn MD Dictated Date/time: 09/23/17 00:04 Electronically Signed by: Brando Horn MD 09/23/17 00:08 FINAL REPORT INDICATION: trauma - [facility] ADDITIONAL HISTORY: '72 yo male brought in for ASSISTED, +LOC, L hip

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
--- NOTE | 2018-04-03 13:22 | ER ---
Nurse's Notes [facility] Name: Rigoberto Hutchins Age: 72 yrs Sex: Male : 1945 Arrival Date: 04/03/2018 Time: 12:46 Bed 5 Private MD: Joyce Granados H Diagnosis: Type 1 diabetes mellitus;Tobacco abuse counseling;Tobacco use;Burn of second degree of left lower leg-chronic, ulceration with tendon exposure;Pressure ulcer of buttock;Cellulitis and acute lymphangitis of other parts of limb Presentation: 04/03 13:07 Presenting complaint: Child states: Dr. Ramos said he needed a picc line and wanted to ch admit him four days ago for his LL leg wound. we would like to be admitted today for only 2 days though. wound has been there for 4 weeks and now the tendon is showing. Dr. Mixon sees him. Transition of care: patient was not received from another setting of care. Onset of symptoms was February 2018. Risk Assessment: Do you want to hurt yourself or someone else? Patient reports no desire to harm self or others. Initial Sepsis Screen: Does the patient meet any 2 criteria? No. Patient's initial sepsis screen is negative. Does the patient have a suspected source of infection? Yes: Skin breakdown/wound. Care prior to arrival: None. 13:07 Method Of Arrival: Wheelchair 13:07 Acuity: SUNDAY 3 ch Historical: - Allergies: 13:10 Ampicillin; ch 13:10 Aspirin; ch 13:10 Codeine; 13:10 Demerol; 13:10 PENICILLINS; 13:10 Tetracycline; - Home Meds: 13:10 Insulin: Novolin 70/30 Sub-Q [Active]; isosorbide mononitrate 30 mg Oral Tb24 1 tab ch once daily [Active]; NitroQuick SL 0.4 mg as needed [Active]; Plavix 75 mg Oral tab 1 tab once daily [Active]; Soma 350 mg Oral tab 1 tab 3 times per day [Active]; Vytorin 10-80 10-80 mg Oral tab [Active]; - PMHx: 13:10 Diabetes - IDDM; Hepatitis; Hernia; Hyperlipidemia; non healing wounds- sacrum and L ch lower leg; - PSHx: 13:10 Hernia repair; Cholecystectomy; CABG; wound debriedment; ch - Immunization history:: Adult Immunizations up to date. - Social history:: Smoking status: Patient uses tobacco products. - Ebola Screening: : Patient negative for fever greater than or equal to 101.5 degrees Fahrenheit, and additional compatible Ebola Virus Disease symptoms Patient denies exposure to infectious person Patient denies travel to an Ebola-affected area in the 21 days before illness onset No symptoms or risks identified at this time. - Family history:: not pertinent. Screenin:15 Abuse screen: Denies threats or abuse. Denies injuries from another. Nutritional ph screening: No deficits noted. Tuberculosis screening: No symptoms or risk factors identified. Fall Risk None identified. Assessment: 13:11 General: Appears in no apparent distress. uncomfortable, slender, Behavior is calm, ph cooperative, appropriate for age, Denies fever. Pain: Complains of pain in left hemphill. Neuro: Level of Consciousness is awake, alert, obeys commands, Oriented to person, place, time, situation. Cardiovascular: Capillary refill < 3 seconds in bilateral fingers Patient's skin is warm and dry. Respiratory: Airway is patent Respiratory effort is even, unlabored, Respiratory pattern is regular, symmetrical, Denies shortness of breath. Derm: Skin is fragile, is thin, Skin is pink, warm \\T\\ dry. Wound noted left hemphill Other: large wound noted w/ tendon exposed, dressing in place upon arrival, friend states," He went to wound care today and they did a culture of the wound." Decubitus located on sacrum approximately 2.6 cm to 7.5 cm bed has fibrin present is draining none noted. Musculoskeletal: Circulation, motion, and sensation intact. Range of motion: intact in all extremities. 14:30 Reassessment: Patient appears in no apparent distress at this time. Patient and/or ph family updated on plan of care and expected duration. Pain level reassessed. Patient is alert, oriented x 3, equal unlabored respirations, skin warm/dry/pink. 15:30 Reassessment: Patient appears in no apparent distress at this time. Patient and/or ph family updated on plan of care and expected duration. Pain level reassessed. Patient is alert, oriented x 3, equal unlabored respirations, skin warm/dry/pink. Vital Signs: 13:16 BP 107 / 57; Pulse 58; Resp 18; Pulse Ox 99% on R/A; ph 14:00 BP 107 / 52; Pulse 67; Resp 18; Pulse Ox 96% on R/A; ph 15:01 BP 113 / 53; Pulse 72; Resp 18; Temp 97.8; Pulse Ox 95% on R/A; ph ED Course: 12:46 Patient arrived in ED. rg4 12:46 Joyce Granados DO is Private Physician. rg4 12:59 Gaurav Donaldson MD is Attending Physician. sallie 13:03 Kari Jones, RN is Primary Nurse. ph 13:09 Triage completed. ch 13:10 Arm band placed on left wrist. Patient placed in an exam room, on a stretcher, on pulse ch oximetry. 13:16 Patient has correct armband on for positive identification. Placed in gown. Bed in low ph position. Call light in reach. Side rails up X 1. Pulse ox on. NIBP on. Warm blanket given. 13:18 Mandie Carreon MD is Hospitalizing Provider. sallie 13:40 Inserted saline lock: 22 gauge in left forearm, using aseptic technique. ph 13:51 EKG done, by certified veterinary technician. reviewed by Gaurav Donaldson MD. at1 13:53 X-ray completed. Portable x-ray completed in exam room. Patient tolerated procedure ml well. 15:00 No provider procedures requiring assistance completed. Patient admitted, IV remains in ph place. Administered Medications: 13:40 Drug: levofloxacin 500 mg Volume: 100 ml; Route: IVPB; Infused Over: 60 mins; Site: ph left forearm; 14:40 Follow up: Response: No adverse reaction; IV Status: Completed infusion ph 14:46 Follow up: Response: No adverse reaction; IV Status: Completed infusion aa5 13:45 Drug: NS 0.9% 500 ml Route: IV; Rate: bolus; Site: left forearm; ph 14:20 Follow up: Response: No adverse reaction; IV Status: Completed infusion ph 14:09 Drug: Nicoderm CQ 21 mg/24 hr 1 patches {Note: R upper arm.} Route: Transdermal; Site: ph affected area; 15:30 Follow up: Response: No adverse reaction ph 14:20 Drug: NS 0.9% 1000 ml Route: IV; Rate: 125 ml/hr; Site: left forearm; ph 15:30 Follow up: Response: No adverse reaction; IV Status: Infusion continued upon admission ph 14:46 Drug: vancoMYCIN 1 grams Route: IVPB; Infused Over: 2 hrs; Site: left forearm; aa5 15:30 Follow up: Response: No adverse reaction; IV Status: Infusion continued upon admission ph Outcome: 13:21 Decision to Hospitalize by Provider. sallie 15:45 Admitted to Med/surg accompanied by tech, via wheelchair, with chart. ph 15:45 Condition: stable 15:45 Instructed on the need for admit. 15:48 Patient left the ED. ph Signatures: Deonna Ross, RN RN Gaurav Rivero MD MD cha Lopez, Rosette Ortega RN RN [email or web address] Ara Ruiz, physician liaison EKG Tat1 Kari Jones RN RN lorraine Webb, Rajwinder rg4
[2018-04-03] MEDS ORDERED: NICOTINE 21 MG/PAT TD ONE (13:30)
[2018-04-03] MEDS ORDERED: Levofloxacin500mg IV 500 MG/100 ML BAG IV ONE (13:31)
[2018-04-03] MEDS ORDERED: NA CHLORIDE 0.9% 1,000 ML ONE (13:31)
[2018-04-03] MEDS ORDERED: VANCOMYCIN 1 GM/250 ML BAG ONE (13:31)
--- NOTE | 2018-04-03 14:01 | RAD REPORT ---
EXAM DESCRIPTION: RAD - Chest Single View - 04/03/2018 1:55 pm CLINICAL HISTORY: Cough and congestion, preop examination for leg wound COMPARISON: March 2018 TECHNIQUE: AP portable chest image was obtained 1348 hours . FINDINGS: Moderately prominent fibrotic lung pattern is present similar to the short interval compar socrates. No peripheral mass, consolidation or failure finding. Sternotomy wires in place. No new tube or line. Heart and vasculature are normal. No measurable pleural effusion and no pneumothorax. No acute bony abnormality seen. No acute aortic findings suspected. IMPRESSION: Chronic interstitial lung disease similar to comparison. No acute finding identifiable.
--- NOTE | 2018-04-03 14:02 | RAD REPORT ---
EXAM DESCRIPTION: RAD - Tib Fib Left - 04/03/2018 1:57 pm CLINICAL HISTORY: Pain and swelling, leg wound COMPARISON: None. FINDINGS: No fracture is identified. There is no dislocation or periosteal reaction noted. No acute or destructive bone process. Anterior lower left leg wound is present. No air or foreign body seen. IMPRESSION: Soft tissue wound with no foreign body or air in the soft tissues. No acute bone finding in the left tibia fibula.
[2018-04-03 14:10] LABS: Protime INR 1.13
[2018-04-03 14:13] LABS: Absolute Lymphocytes (CBC) 0.9 K/uL (0.7-4.9); Absolute Monocytes 0.6 K/uL (0.1-1.3); Absolute Neutrophil 4.6 K/uL (1.8-8.0); Basophils % 0.5 % (0-1.3); Eosinophils % 1.3 % (0-4.4); Hematocrit 35.3 % (39.6-49.0); MPV 7.4 fL (7.6-11.3); RBC Red Blood Cell Count 4.22 M/uL (4.33-5.43)
[2018-04-03 14:19] LABS: ALT/SGPT 9 U/L (12-78); AST/SGOT 8 U/L (15-37); Albumin 2.8 g/dL (3.4-5.0); Alkaline Phosphatase 97 U/L (45-117); BUN Blood Urea Nitrogen 12 mg/dL (7-18); Bicarbonate 31 mmol/L (21-32); Bilirubin Direct < 0.1 mg/dL (0-0.2); Bilirubin Total 0.4 mg/dL (0.2-1.0); Glucose Level 223 mg/dL (74-106); Magnesium 2.4 mg/dL (1.8-2.4); NT PRO-BNP 747 pg/mL (<125); Potassium 4.5 mmol/L (3.5-5.1); Protein, Total 6.9 g/dL (6.4-8.2); Sodium Level 134 mmol/L (136-145); Troponin (Emerg Dept Use Only) < 0.02 ng/mL (0.0-0.045)
[2018-04-03] MEDS ORDERED: ONDANSETRON 4 MG/2 ML VIAL IV PRN (15:47)
[2018-04-03] MEDS ORDERED: ACETAMINOPHEN 500 MG TAB PO PRN (15:47)
[2018-04-03 15:55] VITALS: O2SAT 95; BMI 23.3
[2018-04-03] MEDS: INSULIN -REGULAR HUMAN 50 UNIT/0.5 ML ML SQ SCH ×2 (16:18→20:42)
[2018-04-03 16:57] LABS: Urine Appearance CLEAR; Urine Bilirubin NEGATIVE (NEG); Urine Blood NEGATIVE (NEG); Urine Color YELLOW; Urine Glucose 1+ (NEG); Urine Protein NEGATIVE (NEG); Urine Specific Gravity <=1.005 (1.005-1.030); Urine Urobilinogen 0.2 mg/dL (0.2-1.0)
[2018-04-03 17:00] LABS: Urine Microscopic Reflex NO UMIC
[2018-04-03] MEDS: VANCOMYCIN 1.5 GM in NA CHLORIDE 0.9% 500 ML IVPB SCH (17:00)
[2018-04-03] MEDS ORDERED: PNEUMOCOCCAL VACCINE 0.5 ML IMVAC ONE (17:00)
[2018-04-03] MEDS ORDERED: INFLUENZA VACCINE (for 3y+) 0.5 ML DOSE IMVAC ONE (17:00)
[2018-04-03] MEDS: PIPER/TAZO/NS 3.375gm 3.375 GM/100 ML BAG IVPB SCH (17:06)
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
[2018-04-04] MEDS: PIPER/TAZO/NS 3.375gm 3.375 GM/100 ML BAG IVPB SCH ×3 (00:32→17:00)
[2018-04-04 04:27] LABS: Absolute Lymphocytes (CBC) 1.1 K/uL (0.7-4.9); Absolute Monocytes 0.6 K/uL (0.1-1.3); Basophils % 0.5 % (0-1.3); Eosinophils % 2.2 % (0-4.4); Hematocrit 35.1 % (39.6-49.0); Lymphocytes % 18.2 % (15.3-44.8); MPV 7.4 fL (7.6-11.3); Monocytes % 10.4 % (3.3-12.3); RBC Red Blood Cell Count 4.18 M/uL (4.33-5.43)
[2018-04-04 04:44] LABS: Albumin 2.5 g/dL (3.4-5.0); Bilirubin Total 0.5 mg/dL (0.2-1.0); Magnesium 2.1 mg/dL (1.8-2.4); Phosphorus 3.7 mg/dL (2.5-4.9); Protein, Total 6.5 g/dL (6.4-8.2)
--- NOTE | 2018-04-04 07:46 | EKG ---
Test Date: 2018-04-03 Test Time: 13:44:56 Local Telephone Operator: ANGUS MEASUREMENT RESULTS: Intervals: Rate: 56 MS: 172 QRSD: 116 QT: 474 QTc: 457 [place]: P: 42 MS: 172 QRS: -11 T: -32 INTERPRETIVE STATEMENTS: Sinus bradycardia Left ventricular hypertrophy with QRS widening Nonspecific ST and T wave abnormality Abnormal ECG Compared to ECG 03/27/2018 17:20:10 Left ventricular hypertrophy now present ST (T wave) deviation now present Sinus rhythm no longer present T-wave abnormality no longer present Possible ischemia no longer present Electronically Signed On 04-04-18 07:45:13 NETWORK ANALYST by Hema Palacios
[2018-04-04] MEDS: COLLAGENASE 30 GM OINTMENT TOP SCH (09:51)
[2018-04-04] MEDS: INSULIN -REGULAR HUMAN 50 UNIT/0.5 ML ML SQ SCH ×5 (09:54→21:00)
[2018-04-04] MEDS: VANCOMYCIN 1.5 GM in NA CHLORIDE 0.9% 500 ML IVPB SCH (10:59)
[2018-04-04] MEDS ORDERED: GLUCAGON 1 MG/VIAL IM PRN (11:48)
[2018-04-04] MEDS ORDERED: D50W 25 GM/50 ML SYRINGE IV PRN (11:48)
--- NOTE | 2018-04-04 15:44 | P.PN ---
Subjective Date of Service: 04/04/18 Patient seen and examined at bedside with RN. Chart reviewed. Case discussed with general surgery and ID at this time. Overnight patient has no complaints to offer Review of Systems 10-point ROS is otherwise unremarkable Physical Examination - Vital Signs Temperature: 99.0 F Blood Pressure: 150/68 Pulse: 65 Respirations: 16 Pulse Ox (%): 96 - Physical Exam General: Alert, In no apparent distress HEENT: Atraumatic, PERRLA, EOMI Neck: Supple, JVD not distended Respiratory: Clear to auscultation bilaterally, Normal air movement Cardiovascular: Regular rate/rhythm, Normal S1 S2 Gastrointestinal: Normal bowel sounds, No tenderness Integumentary: Skin breakdown, Skin lesion, Diabetic ulcer, Other (Please refer to wound care notes for further details on the sacral, abdominal and foot wound at this time.) Neurological: Normal speech, Normal tone, Normal affect Lymphatics: No axilla or inguinal lymphadenopathy - Studies Medications List Reviewed: Yes Assessment And Plan - Current Problems (Diagnosis) (1) Open wound of left lower leg with complication Current Visit: No Status: Acute Plan: Open wound of the left lower leg nonhealing at this time due to noncompliance with antibiotics and smoking -continue on IV antibiotics at this time will continue on vanc and Zosyn. Wound cultures are pending at this time. -ID and general surgery consulted appreciated recommendations at this time -recommendation is to continue with IV antibiotics and wound care for total 2 weeks Qualifiers: Encounter type: subsequent encounter Qualified Code(s): S81.802D - Unspecified open wound, left lower leg, subsequent encounter (2) Open wound of abdominal wall with complication Current Visit: No Status: Chronic Plan: Wound care has been consulted. Appreciated recommendations at this time. Wound cultures pending at this time as well (3) Pressure ulcer of sacral region, stage 4 Current Visit: No Status: Chronic (4) Coronary arteriosclerosis Current Visit: No Status: Chronic (5) GERD (gastroesophageal reflux disease) Current Visit: No Status: Chronic Qualifiers: Esophagitis presence: without esophagitis Qualified Code(s): K21.9 - Gastro -esophageal reflux disease without esophagitis (6) Hx of cerebral infarction Current Visit: No Status: Chronic (7) Major depressive disorder Current Visit: No Status: Chronic Qualifiers: Major depression recurrence: single episode Active/Remission status: remission status unspecified Qualified Code(s): F32.9 - Major depressive disorder, single episode, unspecified (8) Alcohol abuse Onset Date: 12/14/16 Current Visit: No Status: Suspected (9) CAD (coronary artery disease) Onset Date: 12/14/16 Current Visit: No Status: Chronic Qualifiers: Coronary Disease-Associated Artery/Lesion type: bypass graft, autologous vein Associated angina: without angina Qualified Code(s): I25.810 - Atherosclerosis of coronary artery bypass graft(s) without angina pectoris (10) COPD (chronic obstructive pulmonary disease) Onset Date: 03/28/18 Current Visit: No Status: Chronic Qualifiers: COPD type: chronic bronchitis Chronic bronchitis type: unspecified Qualified Code(s): J42 - Unspecified chronic bronchitis (11) Diabetes mellitus Onset Date: 12/14/16 Current Visit: No Status: Chronic (12) Hepatitis C Onset Date: 10/10/17 Current Visit: No Status: Chronic Qualifiers: Viral hepatitis chronicity: chronic Hepatic coma status: without hepatic coma Qualified Code(s): B18.2 - Chronic viral hepatitis C (13) Hyperlipidemia Onset Date: 12/14/16 Current Visit: No Status: Chronic - Plan PATIENT IS CURRENTLY PENDING CLINICAL IMPROVEMENT. PATIENT WAS EDUCATED EXTENSIVELY TODAY AT BEDSIDE ON SMOKING CESSATION AND NEED FOR PATIENT TO GO TO A LONG-TERM ACUTE CARE FOR IV ANTIBIOTICS AND WOUND CARE. PATIENT HOWEVER REFUSED TO GO TO A LONG-TERM ACUTE CARE FACILITY AND STATES THAT HE WOULD LIKE TO GO TO THE [facility]. PATIENT WAS REFERRED OVER TO [facility] FOR IV ANTIBIOTICS AND WOUND CARE. PENDING PLACEMENT AT THIS TIME. CASE MANAGEMENT HAS BEEN CONSULTED Discharge Plan: Other Plan to discharge in: 72 Hours - Code Status/Comfort Care Code Status Assessed: Yes Critical Care: No
[2018-04-04] MEDS: MEDIHONEY 44 ML TOPICAL TUBE TOP SCH (18:00)
[2018-04-04] MEDS: JUVEN PACKET PO SCH (21:00)
[2018-04-04] MEDS ORDERED: SILVER SULFADIAZINE 1% 50 GM TOP SCH (21:00)
[2018-04-04] MEDS ORDERED: NITROGLYCERIN 0.4 MG/TAB SL PRN (21:46)
[2018-04-04] MEDS ORDERED: CARISOPRODOL 350 MG TAB PO PRN (21:46)
[2018-04-04] MEDS ORDERED: CYCLOBENZAPRINE 10 MG TAB PO PRN (21:46)
[2018-04-05] MEDS: PIPER/TAZO/NS 3.375gm 3.375 GM/100 ML BAG IVPB SCH ×3 (02:38→17:22)
[2018-04-05 04:06] LABS: Absolute Monocytes 0.5 K/uL (0.1-1.3); Absolute Neutrophil 3.4 K/uL (1.8-8.0); Basophils % 0.7 % (0-1.3); Eosinophils % 2.9 % (0-4.4); Hematocrit 35.4 % (39.6-49.0); Lymphocytes % 19.7 % (15.3-44.8); MPV 7.6 fL (7.6-11.3); Monocytes % 9.9 % (3.3-12.3); RBC Red Blood Cell Count 4.26 M/uL (4.33-5.43)
[2018-04-05 04:29] LABS: Albumin 2.6 g/dL (3.4-5.0); Bilirubin Total 0.5 mg/dL (0.2-1.0); Magnesium 2.2 mg/dL (1.8-2.4); Phosphorus 3.3 mg/dL (2.5-4.9); Potassium 4.1 mmol/L (3.5-5.1); Protein, Total 6.6 g/dL (6.4-8.2)
[2018-04-05] MEDS: VANCOMYCIN 1.5 GM in NA CHLORIDE 0.9% 500 ML IVPB SCH ×2 (06:44→23:12)
[2018-04-05] MEDS: JUVEN PACKET PO SCH ×2 (09:00→21:00)
[2018-04-05] MEDS: COLLAGENASE 30 GM OINTMENT TOP SCH (09:00)
[2018-04-05] MEDS ORDERED: SIMVASTATIN PO SCH (09:00)
[2018-04-05] MEDS ORDERED: EZETIMIBE PO SCH (09:00)
[2018-04-05] MEDS ORDERED: SILVER SULFADIAZINE 1% 50 GM TOP SCH (09:00)
[2018-04-05] MEDS: INSULIN 70/30 100 UNITS/ML SQ SCH ×3 (09:04→17:21)
[2018-04-05] MEDS: INSULIN -REGULAR HUMAN 50 UNIT/0.5 ML ML SQ SCH ×4 (09:04→21:00)
[2018-04-05] MEDS: EZETIMIBE 10 MG TAB PO SCH (09:06)
[2018-04-05] MEDS: CLOPIDOGREL 75 MG TABLET PO SCH (09:06)
[2018-04-05] MEDS: ATORVASTATIN 40 MG TAB PO SCH (09:06)
[2018-04-05] MEDS: ISOSORBIDE MONO SR 30 MG TAB PO SCH (09:06)
[2018-04-05] MEDS: MEDIHONEY 44 ML TOPICAL TUBE TOP SCH (13:43)
--- NOTE | 2018-04-05 16:24 | P.PN ---
Subjective Date of Service: 04/05/18 Patient seen and examined at bedside with RN. Chart reviewed. Case discussed with general surgery and ID at this time. Overnight patient has no complaints to offer. [facility] Review of Systems 10-point ROS is otherwise unremarkable Physical Examination - Vital Signs Temperature: 98.5 F Blood Pressure: 91/54 Pulse: 61 Respirations: 18 Pulse Ox (%): 97 - Physical Exam General: Alert, In no apparent distress HEENT: Atraumatic, PERRLA, EOMI Neck: Supple, JVD not distended Respiratory: Clear to auscultation bilaterally, Normal air movement Cardiovascular: Regular rate/rhythm, Normal S1 S2 Gastrointestinal: Other (Extensive chronic wound noted on the abdomen. Abdominal hernia noted as well.), Tenderness Musculoskeletal: Erythema, Tenderness, Warmth Integumentary: No rashes Neurological: Normal speech, Normal tone, Normal affect Lymphatics: No axilla or inguinal lymphadenopathy - Studies Medications List Reviewed: Yes Assessment And Plan - Current Problems (Diagnosis) (1) Open wound of left lower leg with complication Current Visit: No Status: Acute Plan: Open wound of the left lower leg non-healing at this time due to noncompliance with antibiotics and smoking -continue on IV antibiotics at this time will continue on vanc and Zosyn. -Wound cultures are positive for Gram negative rods at this time -ID and general surgery consulted appreciated recommendations at this time -recommendation is to continue with IV antibiotics and wound care for total 2 weeks. However further recommendations post wound culture Qualifiers: Encounter type: subsequent encounter Qualified Code(s): S81.802D - Unspecified open wound, left lower leg, subsequent encounter (2) Open wound of abdominal wall with complication Current Visit: No Status: Chronic Plan: Wound care has been consulted. Appreciated recommendations at this time. Wound cultures pending at this time as well (3) Pressure ulcer of sacral region, stage 4 Current Visit: No Status: Chronic (4) Coronary arteriosclerosis Current Visit: No Status: Chronic (5) GERD (gastroesophageal reflux disease) Current Visit: No Status: Chronic Qualifiers: Esophagitis presence: without esophagitis Qualified Code(s): K21.9 - Gastro -esophageal reflux disease without esophagitis (6) Hx of cerebral infarction Current Visit: No Status: Chronic (7) Major depressive disorder Current Visit: No Status: Chronic Qualifiers: Major depression recurrence: single episode Active/Remission status: remission status unspecified Qualified Code(s): F32.9 - Major depressive disorder, single episode, unspecified (8) Alcohol abuse Onset Date: 12/14/16 Current Visit: No Status: Suspected (9) CAD (coronary artery disease) Onset Date: 12/14/16 Current Visit: No Status: Chronic Qualifiers: Coronary Disease-Associated Artery/Lesion type: bypass graft, autologous vein Associated angina: without angina Qualified Code(s): I25.810 - Atherosclerosis of coronary artery bypass graft(s) without angina pectoris (10) COPD (chronic obstructive pulmonary disease) Onset Date: 03/28/18 Current Visit: No Status: Chronic Qualifiers: COPD type: chronic bronchitis Chronic bronchitis type: unspecified Qualified Code(s): J42 - Unspecified chronic bronchitis (11) Diabetes mellitus Onset Date: 12/14/16 Current Visit: No Status: Chronic (12) Hepatitis C Onset Date: 10/10/17 Current Visit: No Status: Chronic Qualifiers: Viral hepatitis chronicity: chronic Hepatic coma status: without hepatic coma Qualified Code(s): B18.2 - Chronic viral hepatitis C (13) Hyperlipidemia Onset Date: 12/14/16 Current Visit: No Status: Chronic - Plan PATIENT IS CURRENTLY PENDING CLINICAL IMPROVEMENT. PATIENT WAS EDUCATED EXTENSIVELY TODAY AT BEDSIDE ON SMOKING CESSATION AND NEED FOR PATIENT TO GO TO A LONG-TERM ACUTE CARE FOR IV ANTIBIOTICS AND WOUND CARE. PATIENT HOWEVER REFUSED TO GO TO A LONG-TERM ACUTE CARE FACILITY AND STATES THAT HE WOULD LIKE TO GO TO THE [facility]. PATIENT WAS REFERRED OVER TO [facility] FOR IV ANTIBIOTICS AND WOUND CARE. PENDING PLACEMENT AT THIS TIME. CASE MANAGEMENT HAS BEEN CONSULTED Discharge Plan: Other Plan to discharge in: 72 Hours - Code Status/Comfort Care Code Status Assessed: Yes Critical Care: No
[2018-04-05] MEDS ORDERED: TAMSULOSIN 0.4 MG SR CAP PO SCH (21:00)
[2018-04-06] MEDS: PIPER/TAZO/NS 3.375gm 3.375 GM/100 ML BAG IVPB SCH ×2 (03:22→09:47)
[2018-04-06 06:18] LABS: Absolute Monocytes 0.6 K/uL (0.1-1.3); Absolute Neutrophil 4.6 K/uL (1.8-8.0); Basophils % 0.3 % (0-1.3); Eosinophils % 2.9 % (0-4.4); Hematocrit 35.5 % (39.6-49.0); Lymphocytes % 15.4 % (15.3-44.8); MPV 7.3 fL (7.6-11.3); Monocytes % 9.5 % (3.3-12.3); RBC Red Blood Cell Count 4.26 M/uL (4.33-5.43)
[2018-04-06 06:46] LABS: Albumin 2.6 g/dL (3.4-5.0); Bilirubin Total 0.5 mg/dL (0.2-1.0); Magnesium 2.5 mg/dL (1.8-2.4); Phosphorus 3.6 mg/dL (2.5-4.9); Potassium 3.9 mmol/L (3.5-5.1); Protein, Total 6.6 g/dL (6.4-8.2)
[2018-04-06 08:08] VITALS: BP 114/55; TEMP 99.4
[2018-04-06] MEDS: EZETIMIBE 10 MG TAB PO SCH (09:51)
[2018-04-06] MEDS: ISOSORBIDE MONO SR 30 MG TAB PO SCH (09:51)
[2018-04-06] MEDS: ATORVASTATIN 40 MG TAB PO SCH (09:51)
[2018-04-06] MEDS: CLOPIDOGREL 75 MG TABLET PO SCH (09:52)
[2018-04-06] MEDS: INSULIN -REGULAR HUMAN 50 UNIT/0.5 ML ML SQ SCH (09:52)
[2018-04-06] MEDS: INSULIN 70/30 100 UNITS/ML SQ SCH (09:53)
[2018-04-06] MEDS: JUVEN PACKET PO SCH (09:54)
--- NOTE | 2018-04-06 14:21 | P.PN ---
Subjective Date of Service: 04/05/18 Subjective: Tolerating diet Review of Systems 10-point ROS is otherwise unremarkable Physical Examination - Vital Signs Temperature: 99.4 F Blood Pressure: 114/55 Pulse: 61 Respirations: 20 Pulse Ox (%): 95 - Physical Exam General: Alert, In no apparent distress, Oriented x3 Integumentary: No warmth, Pressure ulcer (sacrum), Other (LLE open wound tendon xposed.) - Studies Medications List Reviewed: Yes Assessment And Plan - Plan ID cousult WEt to dryNS sacrum and leg OFF loading Pt continue leaving hospital against medical advised. PT advised how that may compromise his life.
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
[2018-04-06] MEDS ORDERED: Meropenem 1,000 MG in NA CHLORIDE 0.9% 100 ML IV SCH (17:00)
[2018-04-06] MEDS ORDERED: Meropenem 1000 MG/VIAL IV SCH (17:00)
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
== END 2018-04-06 11:24 | disposition left against medical advice (07) | DRG 949 ==
LOC: ER 12:43 → ERHOLD 13:44 → 4TH 15:34
PROVIDERS: ADMIT Family Medicine; ATTEND Family Medicine
DX: S81.802D Unspecified open wound, left lower leg, subsequent encounter (principal); L89.154 Pressure ulcer of sacral region, stage 4; L03.116 Cellulitis of left lower limb; S31.109D Unspecified open wound of abdominal wall, unspecified quadrant without penetration into peritoneal cavity, subsequent encounter; B96.20 Unspecified Escherichia coli [E. coli] as the cause of diseases classified elsewhere; Z16.12 Extended spectrum beta lactamase (ESBL) resistance; X16.XXXD Contact with hot heating appliances, radiators and pipes, subsequent encounter; F10.10 Alcohol abuse, uncomplicated; F14.10 Cocaine abuse, uncomplicated; F17.210 Nicotine dependence, cigarettes, uncomplicated; J44.9 Chronic obstructive pulmonary disease, unspecified; E11.9 Type 2 diabetes mellitus without complications; Z79.4 Long term (current) use of insulin; E11.65 Type 2 diabetes mellitus with hyperglycemia; I10 Essential (primary) hypertension; Z88.5 Allergy status to narcotic agent; Z88.0 Allergy status to penicillin; Z88.8 Allergy status to other drugs, medicaments and biological substances; I25.10 Atherosclerotic heart disease of native coronary artery without angina pectoris; Z95.1 Presence of aortocoronary bypass graft; Z86.73 Personal history of transient ischemic attack (TIA), and cerebral infarction without residual deficits; B18.2 Chronic viral hepatitis C; K21.9 Gastro-esophageal reflux disease without esophagitis; F32.9 Major depressive disorder, single episode, unspecified; E78.5 Hyperlipidemia, unspecified; Z91.14 Patient's other noncompliance with medication regimen; Z91.19 Patient's noncompliance with other medical treatment and regimen; K46.9 Unspecified abdominal hernia without obstruction or gangrene
CPT/HCPCS: 11042; 11045; 36415; 71045; 80048; 80053; 80076; 81003; 82962; 83735; 83880; 84100; 84484; 85025; 85610; 85652; 87070; 87075; 87077; 87186; 87205; 93005; 96365; 96367; 99285; J2543; J3370; J3590; J7030

== ENCOUNTER 2018-10-30 23:39 | Emergency (ER) | payer OTHER ==
--- OUTSIDE RECORDS SUMMARY | 2018-10-30 23:41 | XMS REPORT | Clinical Summary ---
:1945 Author Organization [facility] Address [address] [place] [address] Care Team Providers Name Role Phone Asked, [...] Health Maintenance Due Date Last Done Comments COLONOSCOPY SCREENING 1996 SHINGLES VACCINES (#1) 1996 65+ PNEUMOCOCCAL VACCINE (1 of 2 - PCV13) 09/26/2011 INFLUENZA VACCINE 11/15/2018 Results Not on fileafter 10/29/2017 Insurance Payer Benefit Plan / Subscriber ID Effective Dates Phone Address Type Group MEDICARE MEDICARE PART A xxxxxxxxxx 2011-Present [place], [place] Medicare AND B BCBS [facility] xxxxxxxxxxxx 2015-Present PPO Advance Directives Patient has advance care planning documents on file. For more information, please contact:[id number] [place] [address]
--- OUTSIDE RECORDS SUMMARY | 2018-10-30 23:43 | XMS REPORT ---
:1945 Author Organization [facility] Address [address] [place] [address] Dr. Alvarez [address] [place] [id number] Care Team Providers Name Role Phone Unavailable Unavailable Unavailable Problems This patient has no known problems. Allergies, Adverse Reactions, Alerts This patient has no known allergies or adverse reactions. Medications This patient has no known medications.
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
[2018-10-31 01:18] LABS: Absolute Lymphocytes (CBC) 0.4 K/uL (0.7-4.9); Basophils % 0.5 % (0-1.3); Eosinophils % 0.9 % (0-4.4); Hematocrit 34.3 % (39.6-49.0); Lymphocytes % 5.4 % (15.3-44.8); Monocytes % 11.8 % (3.3-12.3)
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
[2018-10-31] MEDS ORDERED: NA CHLORIDE 0.9% 1,000 ML ONE (02:29)
[2018-10-31] MEDS ORDERED: Levofloxacin500mg IV 500 MG/100 ML BAG IV ONE (02:29)
[2018-10-31] MEDS ORDERED: TETANUS & DIPHTHERIA TOX,ADULT 0.5 ML VIAL ONE (02:30)
[2018-10-31] MEDS ORDERED: BUPIVACAINE 0.25% PF 10 ML VIAL ONE (02:54)
[2018-10-31] MEDS ORDERED: LIDOCAINE 1% 20 ML MDV ONE (02:54)
[2018-10-31 04:49] VITALS: TEMP 99
[2018-10-31 04:53] VITALS: BP 136/47; O2SAT 94
--- NOTE | 2018-10-31 07:59 | RAD REPORT ---
EXAM DESCRIPTION: [place] Single View10/30/2018 11:59 pm CLINICAL HISTORY: Chest pain COMPARISON: None FINDINGS: Bilateral interstitial lung opacities are without obvious change. . The heart is mildly en larged. Postsurgical changes involve the chest. IMPRESSION: Bilateral interstitial lung opacities probably are mostly not all chronic.
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
== END 2018-10-31 04:43 | disposition home or self-care (01) ==
LOC: ER 23:39
PROC: 0JQ10ZZ Repair Face Subcutaneous Tissue and Fascia, Open Approach (ICD-10-PCS; principal; 2018-10-30)
DX: S01.81XA Laceration without foreign body of other part of head, initial encounter (principal); S02.2XXA Fracture of nasal bones, initial encounter for closed fracture; S02.42XA Fracture of alveolus of maxilla, initial encounter for closed fracture; Y04.2XXA Assault by strike against or bumped into by another person, initial encounter; Y93.9 Activity, unspecified; Y92.481 Parking lot as the place of occurrence of the external cause; Z23 Encounter for immunization; Z79.01 Long term (current) use of anticoagulants; Z79.4 Long term (current) use of insulin; Z88.0 Allergy status to penicillin; Z88.1 Allergy status to other antibiotic agents; Z88.3 Allergy status to other anti-infective agents; Z88.5 Allergy status to narcotic agent; Z88.6 Allergy status to analgesic agent; Z95.1 Presence of aortocoronary bypass graft; E78.5 Hyperlipidemia, unspecified; E11.9 Type 2 diabetes mellitus without complications
CPT/HCPCS: 85025; 80048; 36415; 86900; 86850; 86901; 70450; 72125; 70486; 76377; 71045; 90714; 12016; J7030; 90471; 96374; 99285

== ENCOUNTER 2018-11-26 12:17 | Emergency (ER) | payer OTHER ==
--- OUTSIDE RECORDS SUMMARY | 2018-11-26 12:20 | XMS REPORT | Clinical Summary ---
:1945 Author Organization [facility] Address [address] [place] [address] Care Team Providers Name Role Phone Asked, [...] INFLUENZA VACCINE 11/15/2018 Results Not on fileafter 11/25/2017 Insurance Payer Benefit Plan / Subscriber ID Effective Dates Phone Address Type Group MEDICARE MEDICARE PART A xxxxxxxxxx 2011-Present [place], [place] Medicare AND B BCBS [facility] xxxxxxxxxxxx 2015-Present PPO Advance Directives Patient has advance care planning documents on file. For more information, please contact:[place] [id number] [place] [address]
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
--- OUTSIDE RECORDS SUMMARY | 2018-11-26 12:22 | XMS REPORT ---
:1945 Author Organization [facility] Address [address] [place] [address] [address]. [address] [place] [address] Care Team Providers Name Role Phone Unavailable Unavailable Unavailable Problems This patient has no known problems. Allergies, Adverse Reactions, Alerts This patient has no known allergies or adverse reactions. Medications This patient has no known medications.
[2018-11-26] MEDS ORDERED: NA CHLORIDE 0.9% 1,000 ML ONE (12:54)
[2018-11-26 13:38] LABS: Absolute Lymphocytes (CBC) 0.9 K/uL (0.7-4.9); Basophils % 0.6 % (0-1.3); Hematocrit 31.5 % (39.6-49.0); MPV 7.3 fL (7.6-11.3); RBC Red Blood Cell Count 4.33 M/uL (4.33-5.43)
[2018-11-26 13:43] LABS: Bilirubin Direct 0.1 mg/dL (0-0.2); Bilirubin Total 0.4 mg/dL (0.2-1.0); Potassium 4.4 mmol/L (3.5-5.1); Protein, Total 6.9 g/dL (6.4-8.2)
--- NOTE | 2018-11-26 14:23 | EKG ---
Test Date: 2018-11-26 Test Time: 13:07:56 Allergist/Immunologist: OMAR MEASUREMENT RESULTS: Intervals: Rate: 77 MT: 194 QRSD: 108 QT: 406 QTc: 459 [place]: P: 59 MT: 194 QRS: 14 T: -33 INTERPRETIVE STATEMENTS: Normal sinus rhythm ST & T wave abnormality, consider inferior ischemia Abnormal ECG Compared to ECG 04/03/2018 13:44:56 Possible ischemia now present Sinus bradycardia no longer present Left ventricular hypertrophy no longer present ST (T wave) deviation still present Electronically Signed On 11-26-18 14:22:19 CDT by Hema Palacios
--- NOTE | 2018-11-26 14:25 | RAD REPORT ---
EXAM DESCRIPTION: CTAbdomen Pelvis W Contrast - 11/26/2018 2:13 pm CLINICAL HISTORY: Abdominal pain. abd swelling, inferior drainage COMPARISON: Abdomen Pelvis W Contrast dated 12/21/2017 TECHNIQUE: Biphasic CT imaging of the abdomen and pelvis was performed with 100 ml non-ionic IV cont rast. All CT scans are performed using dose optimization technique as appropriate and may include automated exposure control or mA/KV adjustment according to patient size. FINDINGS: The inferior lung ragland are emphysematous but clear. The liver demonstrates no aggressive mass or significant biliary dilatation. Cholecystectomy clips ar e seen. The spleen, adrenal glands, kidneys and pancreas are within normal limits. Multiple calcifica tions in the region of the pancreatic head most compatible with chronic pancreatitis. No bowel obstruction or free air. . A very large ventral hernia is present. There is a fluid collecti on along the inferior margin of hernia within the crease of the panniculus measuring 5.5 x 1.5 cm. Th is appears closely related to the skin and a thickened adjacent small bowel loop. An enterocutaneous fistula in this region is a possibility and may be clinically assessed. Normal appendix. No evidence of significant lymphadenopathy. No suspicious bony findings. IMPRESSION: Very large ventral hernia is seen. Along the inferior margin of the panniculus crease th ere is an oblong subcutaneous fluid containing collection which appears intimately associated with chantal th the skin and small bowel, possibly related to a enterocutaneous fistula in this region. Direct cli nical assessment may be of value in this region. Chronic pancreatitis.
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
[2018-11-26 20:41] VITALS: BP 101/45; TEMP 99; O2SAT 96
== END 2018-11-26 14:58 | disposition left against medical advice (07) ==
LOC: ER 12:17
DX: I95.9 Hypotension, unspecified (principal); E11.9 Type 2 diabetes mellitus without complications; E78.5 Hyperlipidemia, unspecified; K75.9 Inflammatory liver disease, unspecified; Z88.6 Allergy status to analgesic agent; Z88.5 Allergy status to narcotic agent; Z88.0 Allergy status to penicillin; Z88.8 Allergy status to other drugs, medicaments and biological substances; Z79.4 Long term (current) use of insulin; Z53.29 Procedure and treatment not carried out because of patient's decision for other reasons
CPT/HCPCS: 93005; 87040; 87070; 85025; 80048; 36415; 87205; 80076; 83605; 84484; 83690; 74177; 99284; Q9967; J7030; 87077; 87186

== ENCOUNTER 2018-12-11 22:00 | Emergency (ER) | payer OTHER ==
--- OUTSIDE RECORDS SUMMARY | 2018-12-11 22:02 | XMS REPORT | Clinical Summary ---
:1945 Author Organization [facility] Address [address] [place] [address] Care Team Providers Name Role Phone Asked, [...] INFLUENZA VACCINE 11/15/2018 Results Not on fileafter 12/10/2017 Insurance Payer Benefit Plan / Subscriber ID Effective Dates Phone Address Type Group MEDICARE MEDICARE PART A xxxxxxxxxx 2011-Present [place], [place] Medicare AND B BCBS [facility] xxxxxxxxxxxx 2015-Present PPO Advance Directives For more information, please contact: [phone] Type Date Recorded Patient Key Account Director Explanation Advance Directives, Living Will and Medical Power of Stud Driver
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
--- OUTSIDE RECORDS SUMMARY | 2018-12-11 22:04 | XMS REPORT ---
:1945 [facility] Address [address] [place] [address] Dr. Alvarez [address] [place] [id number] Care Team Providers Name Role Phone Unavailable Unavailable Unavailable Problems This patient has no known problems. Allergies, Adverse Reactions, Alerts This patient has no known allergies or adverse reactions. Medications This patient has no known medications.
[2018-12-11] MEDS ORDERED: HYDROCODONE/APAP 7.5/325 MG TAB ONE (22:59)
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
[2018-12-12 04:18] VITALS: TEMP 98
[2018-12-12 04:19] VITALS: BP 124/58
[2018-12-12 04:20] VITALS: O2SAT 99
--- NOTE | 2018-12-12 09:27 | RAD REPORT ---
EXAM DESCRIPTION: RAD - Hip Right 2 View - 12/11/2018 11:35 pm CLINICAL HISTORY: Right hip pain FINDINGS: No fracture or dislocation is seen. The bones are osteoporotic. Mild to moderate osteoarthritis involves the right hip consisting joint space narrowing, osteophytes and subchondral sclerosis If the patient continues to have symptoms to suggest an occult fracture then MRI would be recommended
== END 2018-12-12 00:18 | disposition home or self-care (01) ==
LOC: ER 22:00
DX: S70.01XA Contusion of right hip, initial encounter (principal); W17.89XA Other fall from one level to another, initial encounter; Y93.89 Activity, other specified; Y92.9 Unspecified place or not applicable; F17.210 Nicotine dependence, cigarettes, uncomplicated; E11.9 Type 2 diabetes mellitus without complications; E78.5 Hyperlipidemia, unspecified; Z79.4 Long term (current) use of insulin; Z79.01 Long term (current) use of anticoagulants; Z88.0 Allergy status to penicillin; Z88.1 Allergy status to other antibiotic agents; Z88.5 Allergy status to narcotic agent; Z88.6 Allergy status to analgesic agent; Z95.1 Presence of aortocoronary bypass graft
CPT/HCPCS: 99284

== ENCOUNTER 2019-03-06 14:16 | Emergency (ER) | payer OTHER ==
--- OUTSIDE RECORDS SUMMARY | 2019-03-06 14:19 | XMS REPORT ---
:1945 [facility] Address [address] [place] [address] Dr. Alvarez [address] [place] [id number] Care Team Providers Name Role Phone Unavailable Unavailable Unavailable Problems This patient has no known problems. Allergies, Adverse Reactions, Alerts This patient has no known allergies or adverse reactions. Medications This patient has no known medications.
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
--- NOTE | 2019-03-06 15:33 | EDPHYS ---
Physician Documentation [facility] Name: Rigoberto Hutchins Age: 73 yrs Sex: Male : 1945 Arrival Date: 03/06/2019 Time: 14:18 Bed 17 Private MD: ED Physician Kortney Sawant HPI: 03/06 15:47 This 73 yrs old Male presents to ER via Ambulatory with complaints of Hip jr8 Fracture, MRI+. 15:47 Onset: The symptoms/episode began/occurred gradually, 2 month(s) ago. Modifying jr8 factors: The symptoms are alleviated by nothing. the symptoms are aggravated by movement, weight bearing. Associated signs and symptoms: The patient has no apparent associated signs or symptoms. The patient has not experienced similar symptoms in the past. The patient has been recently seen by a physician:. Patient stated that he fell off of trailer a couple of months ago. Since then has had right hip pain that is not getting better. MRI was ordered by pcp for today which was completed. Positive for right hip fracture. Referred to ED at that time. Historical: - Allergies: 14:36 Ampicillin; aj1 14:36 Aspirin; aj1 14:36 Codeine; aj1 14:36 Demerol; aj1 14:36 PENICILLINS; aj1 14:36 Tetracycline; aj1 - Home Meds: 14:36 Insulin: Novolin 70/30 Sub-Q [Active]; isosorbide mononitrate 30 mg Oral Tb24 1 tab aj1 once daily [Active]; NitroQuick SL 0.4 mg as needed [Active]; Plavix 75 mg Oral tab 1 tab once daily [Active]; Soma 350 mg Oral tab 1 tab 3 times per day [Active]; Vytorin 10-80 10-80 mg Oral tab [Active]; - PMHx: 14:36 Diabetes - IDDM; abdominal hernia; Hernia; Hepatitis; non healing wounds- sacrum and L aj1 lower leg; Hyperlipidemia; - Immunization history:: Flu vaccine is not up to date. - Social history:: Smoking status: Patient uses tobacco products, smokes more than three packs cigarettes per day. - Ebola Screening: : Patient denies travel to an Ebola-affected area in the 21 days before illness onset. ROS: 15:47 Eyes: Negative for injury, pain, redness, and discharge, ENT: Negative for injury, jr8 pain, and discharge, Neck: Negative for injury, pain, and swelling, Cardiovascular: Negative for chest pain, palpitations, and edema, Respiratory: Negative for shortness of breath, cough, wheezing, and pleuritic chest pain, Abdomen/GI: Negative for abdominal pain, nausea, vomiting, diarrhea, and constipation, Back: Negative for injury and pain, Skin: Negative for injury, rash, and discoloration, Neuro: Negative for headache, weakness, numbness, tingling, and seizure. 15:47 MS/extremity: Positive for pain, tenderness, of the right hip. Exam: 15:47 Cardiovascular: Regular rate and rhythm with a normal S1 and S2. No gallops, murmurs, jr8 or rubs. Normal PMI, no JVD. No pulse deficits. Respiratory: Lungs have equal breath sounds bilaterally, clear to auscultation and percussion. No rales, rhonchi or wheezes noted. No increased work of breathing, no retractions or nasal flaring. Abdomen/GI: Soft, non-tender, with normal bowel sounds. No distension or tympany. No guarding or rebound. No evidence of tenderness throughout. Back: No spinal tenderness. No costovertebral tenderness. Full range of motion. Skin: Warm, dry with normal turgor. Normal color with no rashes, no lesions, and no evidence of cellulitis. Neuro: Awake and alert, GCS 15, oriented to person, place, time, and situation. Cranial nerves II-XII grossly intact. Motor strength 5/5 in all extremities. Sensory grossly intact. Cerebellar exam normal. Normal gait. 15:47 Musculoskeletal/extremity: Extremities: grossly normal except: noted in the right hip: pain, tenderness, ROM: intact in all extremities, full active range of motion, full passive range of motion, limited active range of motion due to pain, limited passive range of motion due to pain, Circulation is intact in all extremities. Sensation intact. Vital Signs: 14:36 BP 134 / 60; Pulse 65; Resp 18; Temp 97.8; Pulse Ox 100% on R/A; Weight 77.11 kg (R); aj1 Height 5 ft. 11 in. (180.34 cm) (R); 15:30 BP 132 / 64; Pulse 64; Resp 17; Pulse Ox 100% on R/A; hb 16:30 BP 128 / 68; Pulse 65; Resp 17; Pulse Ox 100% on R/A; hb 14:36 Body Mass Index 23.71 (77.11 kg, 180.34 cm) aj1 MDM: 15:04 Patient medically screened. jr8 15:47 Data reviewed: vital signs, nurses notes, lab test result(s), EKG, radiologic studies, jr8 MRI, plain films. Data interpreted: Pulse oximetry: on room air is 100 %. Interpretation: normal. Counseling: I had a detailed discussion with the patient and/or guardian regarding: the historical points, exam findings, and any diagnostic results supporting the discharge/admit diagnosis, lab results, radiology results, the need for further work-up and treatment in the hospital. ED course: Dr. Kennedy consulted and will see patient as consult with plan to due surgery tomorrow. NPO midnight . 17:34 ED course: Just got out of room with patient after he said that he now does not want to jr stay. Detailed discussion with patient about consequences of not staying and having hip surgery. That it could end up in permanent disability and/or complete hip replacement instead of minimally invasive therapy. Patient did not care and wants to go home. When asked why he stated that he could not get done what he needed to today. Could not reason with patient. Had admitting doctor and nurse speak with him as well. No changing patients mind. Patient signing AMA. 03/06 15:28 Order name: Basic Metabolic Panel; Complete Time: 17:28 03/06 15:28 Order name: CBC with Diff; Complete Time: 16:46 03/06 15:28 Order name: LFT's; Complete Time: 17:28 03/06 15:28 Order name: PT-INR; Complete Time: 17:28 [facility] 03/06 15:28 Order name: Troponin (emerg Dept Use Only); Complete Time: 17:28 [facility] 03/06 15:28 Order name: Ptt, Activated; Complete Time: 17:28 03/06 15:28 Order name: XRAY Chest (1 view); Complete Time: 16:46 [facility] 03/06 15:28 Order name: EKG; Complete Time: 15:29 [facility] 03/06 15:28 Order name: Cardiac monitoring [facility] 03/06 15:28 Order name: EKG - Nurse/Tech [facility] 03/06 15:28 Order name: Pelvis XRAY; Complete Time: 16:37 [facility] 03/06 15:28 Order name: XRAY Hip RIGHT 2 view; Complete Time: 16:37 [facility] 03/06 15:28 Order name: IV Saline Lock [facility] 03/06 15:28 Order name: Labs collected and sent; Complete Time: 16:35 [facility] 03/06 15:28 Order name: O2 Per Protocol [facility] 03/06 15:28 Order name: O2 Sat Monitoring [facility] Administered Medications: 17:48 Not Given (Patient Refused): fentaNYL (PF) 50 mcg IVP once; RASS on ADMIN: Combtv4, hb Very Agttd3, Agttd2, Rstlss1, AlertClm0, Drwsy-1, Lt Sdtn-2, Mod Sdtn-3, Dp Sdtn-4, UnArsble-5 17:49 Not Given (Patient Refused): Zofran 4 mg IVP once; over 2 minutes hb Disposition: 03/06/19 17:37 Patient has left against medical advice. Impression: Right Hip Fracture . - Patients states they are going to Home. - Condition is Stable. Follow up: Jeff Kennedy MD; When: Tomorrow; Reason: Recheck today's complaints, Continuance of care, Re-evaluation by your physician. - Problem is new. - Symptoms are unchanged. Signatures: Dispatcher [employer] EDSD Carlee Booth RN RN aj1 Juan Earl PA PA jr8 Manuela Be RN RN hb Corrections: (The following items were deleted from the chart) 17:36 15:33 Hospitalization Ordered by Jaycob Lopez MD for Inpatient Admission. Preliminary jr8 diagnosis is [employer] right hip fracture. Bed requested for Telemetry/MedSurg (Inpatient). Status is Inpatient Admission. Condition is Stable. Problem is new. Symptoms are unchanged. UTI on Admission? No. jr8 17:52 17:37 03/06/2019 17:37 Patients has left against medical advice. Impression: Right Hip hb Fracture . Patient states they are going to Home. Condition is Stable. Follow up: Dr. Jeff Kennedy; When: Tomorrow; Reason: Recheck today's complaints, Continuance of care, Re-evaluation by your physician. Problem is new. Symptoms are unchanged. jr8
[2019-03-06] MEDS ORDERED: ONDANSETRON 4 MG/2 ML VIAL ONE (16:00)
[2019-03-06] MEDS ORDERED: FENTANYL CITR 100 MCG/2 ML ONE (16:00)
--- NOTE | 2019-03-06 16:32 | RAD REPORT ---
EXAM DESCRIPTION: RAD - Hip Right 2 View - 03/06/2019 4:14 pm CLINICAL HISTORY: Right hip pain FINDINGS: A minimally displaced impacted subcapital fracture. No dislocation
--- NOTE | 2019-03-06 16:32 | RAD REPORT ---
EXAM DESCRIPTION: RAD - Pelvis - 03/06/2019 4:14 pm CLINICAL HISTORY: Right hip pain FINDINGS: A minimally displaced impacted subcapital fracture. No dislocation
--- NOTE | 2019-03-06 16:37 | RAD REPORT ---
EXAM DESCRIPTION: [place] Single View03/06/2019 4:14 pm CLINICAL HISTORY: Preop for hip surgery COMPARISON: October 2018 FINDINGS: Bilateral interstitial lung opacities without change likely chronic. Lungs appear clear of acute infiltrate The heart is normal size Postsurgical changes involve the chest. IMPRESSION: No acute abnormalities displayed
[2019-03-06 16:41] LABS: Absolute Lymphocytes (CBC) 1.1 K/uL (0.7-4.9); Basophils % 1.1 % (0-1.3); Hematocrit 35.5 % (39.6-49.0); Lymphocytes % 18.6 % (15.3-44.8); MPV 7.4 fL (7.6-11.3); RBC Red Blood Cell Count 4.96 M/uL (4.33-5.43)
[2019-03-06 16:59] LABS: ALT/SGPT 10 U/L (12-78); AST/SGOT 12 U/L (15-37); Albumin 3.4 g/dL (3.4-5.0); Alkaline Phosphatase 99 U/L (45-117); BUN Blood Urea Nitrogen 6 mg/dL (7-18); Bicarbonate 31 mmol/L (21-32); Bilirubin Direct 0.2 mg/dL (0-0.2); Bilirubin Total 0.7 mg/dL (0.2-1.0); Glucose Level 323 mg/dL (74-106); Potassium 4.7 mmol/L (3.5-5.1); Protein, Total 7.7 g/dL (6.4-8.2); Sodium Level 136 mmol/L (136-145); Troponin (Emerg Dept Use Only) < 0.02 ng/mL (0.0-0.045)
[2019-03-06 17:08] LABS: Protime INR 1.06
--- NOTE | 2019-03-06 18:34 | EKG ---
Test Date: 2019-03-06 Test Time: 15:58:51 Oracle Manager: OMAR MEASUREMENT RESULTS: Intervals: Rate: 76 VT: 200 QRSD: 94 QT: 404 QTc: 454 [place]: P: VT: 200 QRS: -6 T: -37 INTERPRETIVE STATEMENTS: Sinus rhythm with occasional premature ventricular complexes Voltage criteria for left ventricular hypertrophy ST & T wave abnormality, consider inferior ischemia Abnormal ECG Compared to ECG 11/26/2018 13:07:56 Ventricular premature complex(es) now present Left ventricular hypertrophy now present ST (T wave) deviation still present Possible ischemia still present Electronically Signed On 03-06-19 18:32:53 BARREL SCRAPER by Demetrio Sanchez
[2019-03-06 19:02] VITALS: TEMP 97.8; O2SAT 100
[2019-03-06 19:04] VITALS: BP 128/68
== END 2019-03-06 17:52 | disposition left against medical advice (07) ==
LOC: ER 14:16
DX: E78.5 Hyperlipidemia, unspecified (principal); E11.9 Type 2 diabetes mellitus without complications; Z79.4 Long term (current) use of insulin; Z79.82 Long term (current) use of aspirin; Z88.1 Allergy status to other antibiotic agents; Z88.3 Allergy status to other anti-infective agents; Z88.5 Allergy status to narcotic agent; Z88.6 Allergy status to analgesic agent; Z88.0 Allergy status to penicillin
CPT/HCPCS: 93005; 85025; 80048; 36415; 85610; 80076; 85730; 84484; 71045; 72170; 73502; 99283; J3010; J2405

== ENCOUNTER 2019-10-12 07:24 | Inpatient (IN) | payer MEDICARE, OTHER ==
--- OUTSIDE RECORDS SUMMARY | 2019-10-12 07:26 | XMS REPORT | Clinical Summary ---
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
--- OUTSIDE RECORDS SUMMARY | 2019-10-12 07:29 | XMS REPORT | Continuity of Care Document ---
:1945 Author Organization [facility] Care Team Providers Name Role Phone [employer] [facility] Unavailable Un available Problems Problem Status Onset Classification Date Comments Sourc e Date Reported LIFE FLIGHT Active [address] RESIDENTIAL Active [address] L HIP Active [facility] DISLOCATION [address] [place] [address] POSTERIOR Active [facility] DISLOCATION OF Medic al LEFT HIP, INITI Cent er Medications Medication Details Route Status Patient Ordering Order Source Instructions Provider Date Nicotine 7 mg, Route: No Longer [facility], Drug form: Active 2018 Medical ERFILM, Daily, Center Dosing Weight 81.364, kg, Start date: 09/26/17 9:00:00 CDT, Duration: 30 day, Stop date: 10/25/17 9:00:00 CDT Insulin Lispro Notes: (Same No Longer 09/25[facility] as: Humalog ) Active 2018 Medical Roll in palms Center of hands gently; Do not shake `vigorously. "Single Patient Use Only " WASTE: F/P - Black; E - Municipal Trash Bin Stable for 28 days at room temperature. Expires in days from D ate Nicotine 7 mg, Route: Inactive [facility], Drug form: 2018 Medical ERFILM, Daily, Center Dosing Weight 81.364, kg, Start date: 09/25/17 14:23:00 CDT, Duration: 30 day, Stop date: 10/25/17 9:00:00 CDT Nicotine Notes: (Same No Longer 09/25[facility] as: Habitrol) Active 2018 Medical "Remove old Center patch before application of new patch" WASTE: F/P - P Waste Black; E - P Waste Black Insulin 10 unit, Route: Inactive [place] Glargine 100 SUB-Q, Daily, 2018 Medic al UNT/ML Dosing Weight Center Injectable 81.364, kg, Solution Start date: 09/25/17 9:10:00 CDT, Duration: 30 day, Stop date: 10/25/17 9:00:00 CDT POLYETHYLENE Notes: Dissolve No Longer [facility] GLYCOL 3350 in 8 oz of Active 2018 Medical water or juice. Center (Same as: Miralax) sennosides, LONGTERM Notes: (Same No Longer [facility] as: Senokot) Active 2018 Medical Center Docusate Notes: (Same No Longer [facility] as: Colace) (Do Active 2017 Medical Not Crush) Center Insulin Lispro Notes: (Same No Longer [facility] as: Humalog ) Active 2018 Medical Roll in palms Center of hands gently; Do not shake `vigorously. "Single Patient Use Only " WASTE: F/P - Black; E - Municipal Trash Bin Stable for 28 days at room temperature. Expires in days from D ate Isolyte S PH Notes: (Same No Longer [place] 7.4 1,000 mL as: Isolyte S Active 2017 Medic al PH 7.4) Center Isolyte S Notes: [place]: [place] PH-7.4 (Bolus) F/P - Sink; E - 2018 M edical IV Municipal Trash Center Bin Insulin regular 60 units) Inactive [facility] WASTE: F/P - 2018 Medical Black; E - Center Municipal Trash Bin Stable for 28 days at room temperature Expires in days from D ate PlasmaLyte A Notes: (Same [place] PH-7.4 1,000 mL as: Isolyte S 2018 Me dical PH 7.4) Center Insulin Notes: (Same No Longer [place] Glargine 100 as: Lantus) Do Active 2017 Medi irsaema UNT/ML not hold Center Injectable insulin without Solution contacting [Lantus] prescriber WASTE: F/P - Black; E - Municipal Trash Bin "single patient use only" Flomax Notes: (Same No Longer [facility] As: Flomax) Active 2018 Medical "Do Not Crush" Center clopidogrel Notes: (Same [place] Long[place] As: Plavix) Active 2018 Medical Center Insulin regular 60 units) Inactive [facility] WASTE: F/P - 2018 Medical Black; E - Center Municipal Trash Bin Stable for 28 days at room temperature Expires in days from D ate Dextrose 50% 25 gm, 50 mL, Inactive [place] Syringe Route: IVP, 2017 Medical Drug Form: INJ, Center Dosing Weight 100, kg, PRN, PRN Blood Glucose Results, Start date: 09/24/17 3:48:00 CDT, Duration: 30 day, Stop date: 10/24/17 3:47:00 CDT Glucagon 1 mg, Route: Inactive [facility] IM, Drug form: 2018 Medical PDR/INJ, PRN, Center Dosing Weight 100, kg, PRN Blood Glucose Results, Start date: 09/24/17 3:48:00 CDT, Duration: 30 day, Stop date: 10/24/17 3:47:00 CDT Simvastatin Notes: (Same [place] Longer [place] as: Zocor) Active 2018 [facility] Dextrose 50% 25 gm, 50 mL, No Longer [facility] Syringe Route: IVP, Active 2017 Medical Drug Form: INJ, Center Dosing Weight 100, kg, PRN, PRN Abnormal Lab Result, Start date: 09/23/17 15:40:00 CDT, Duration: 30 day, Stop date: 10/23/17 15:39:00 CDT, For FSBG < 40 mg/dL Insulin regular 60 units) No Longer [facility] WASTE: F/P - Active 2018 Medical Black; E - Center Municipal Trash Bin Stable for 28 days at room temperature Expires in days from D ate remove patch 1 patch, Route: No Longer 09/23/ [facility], Q24H, Drug Active 2017 Medical form: ERFILM, [...] Stop date: 09/23/17 7:25:00 CDT isosorbide 30 mg = 1 tab, On Hold [place] as mononitrate 30 PO, QAM, # 30 2018 Med ical mg oral tablet, tab, 0 Center extended Refill(s) release simvastatin 80 80 mg = 1 tab, On Hold [place] mg oral tablet PO, Bedtime, # 2018 Me dical 30 tab, 0 Center Refill(s) clopidogrel 75 75 mg = 1 tab, On Hold [place] mg oral tablet PO, Daily, # 90 2018 M edical tab, 0 Center Refill(s) Versed 1 mg, Route: Inactive [place] IVP, ONCE, 2017 Medical Dosing Weight Center 100, kg, Priority: STAT, Start date: 09/23/17 2:36:00 CDT, Stop date: 09/23/17 2:36:00 CDT Ketamine 10 mg, Route: Inactive [place] IV, ONCE, 2017 Medical Dosing Weight Center 100, kg, Start date: 09/23/17 2:36:00 CDT, Stop date: 09/23/17 2:36:00 CDT Epinephrine Notes: (Same Inactive [place] 0.01 MG/ML / as: Xylocaine 2018 Medic al Lidocaine w/Epinephrine) Center Hydrochloride 10 MG/ML Injectable Solution Lidocaine Notes: Apply No Longer [place] Hydrochloride only once for Active 2018 Medi irasema 0.05 MG/MG up to 12 hours Center Transdermal in a 24-hour Patch period (12 [Lidoderm] hours on and 12 hours off). (Same as: Lidoderm) "Remove old patch before application of new patch" Lovenox Notes: (Same No Longer [facility] as: Lovenox) Active [address] [place] [address] Acetaminophen Notes: [place] Longer [place] acetaminophen Active [address] [place] [address] 4000 mg/day (4 Center gm/day). (Same as: Tylenol Extra Strength) gabapentin Notes: (Same No Longer [place] as: Neurontin) Active [address] [place] [address] Morphine 4 mg, Route: Inactive [facility] IVP, ONCE, 2018 Medical Dosing Weight Center 100, kg, Priority: STAT, Start date: 09/23/17 1:25:00 CDT, Stop date: 09/23/17 1:25:00 CDT Zofran 4 mg, Route: Inactive [facility] IVP, Drug form: [facility] INJ, ONCE, Center Dosing Weight 100, kg, Priority: STAT, Start date: 09/23/17 1:25:00 CDT, Stop date: 09/23/17 1:25:00 CDT iodixanol 130 mL, Route: Inactive [place] IVP, Drug Form: [facility] Medical SOLN, kg, [place] ONCALL, STAT, Start date: 09/23/17 0:12:00 CDT, Duration: 1 doses or times, Dose = 2.2ml/kg, Max dose = 150ml -- "To be infused by Radiology Staff ONLY" Saline Flush Notes: (Same No Longer [place] 0.9% as: BD Active [address] [place] [address] Posiflush) Center Allergies, Adverse Reactions, Alerts Substance Category Reaction Severity Reaction Status Date Comments S ource type Reported penicillins Assertion Severe Drug Active [facility] tetracyclines Assertion Drug Active [facility] ampicillin Assertion Drug Active [facility] codeine Assertion Drug Active [facility] as [facility] ASA/butalbita Assertion PCN, Drug Active [facility] l/caffeine/co CYCLOSPORI, allergy [facility] deine PCN, [place] CYCLOSPORI Demerol Assertion Drug Active [facility] as [facility] Immunizations Immunization Date Given Site Status Last Comments Source Updated diphtheria/pertus 09/23/2017 Left completed [facility] [place] sis, acel/tetanus deltoid Me dical adult Center Results Order Name Results Value Reference Date Interpretation Comments Milly rce Range CHEM PANEL Magnesium Lvl 2.3 1.8 - 2.4 09/26 [facility] [address] [place] [address] CHEM PANEL Phosphorus 2.5 2.5 - 4.5 09/[address] ELECTROLYTES AGAP 9.5 10.0 - 09/26 [facility] 20.0 [facility] ELECTROLYTES eGFR 84 09/26 Result [facility] Comment: The Medical eGFR is Center [...] Calcium Lvl 8.2 8.5 - 10.5 09/26 [place] [facility] ELECTROLYTES CO2 30 24 - 32 09/[address] ELECTROLYTES Potassium Lvl 4.5 3.5 - 5.1 09/[address] ELECTROLYTES Chloride Lvl 100 95 - 109 09/26 [facility] [address] [place] [address] ELECTROLYTES Sodium Lvl 135 135 - 145 09/26 [facility] ELECTROLYTES Creatinine 0.92 0.50 - 09/26 [facility] Lvl 1.40 [facility] ELECTROLYTES Glucose Lvl 377 70 - 99 09/[address] ELECTROLYTES BUN 15 7 - 22 09/[address] HEMATOLOGY Monocytes # 0.8 0.0 - 0.8 09/26 [facility]2017 [facility] HEMATOLOGY Microcyte 2+ None Seen 09/26 [facility] *ABN* /2017 Medical (09/26/17 7:03 AM) [place] HEMATOLOGY Segs-Bands # 2.7 1.5 - 8.1 09/26 [place] as [facility] HEMATOLOGY Lymphocytes # 0.7 1.0 - 5.5 09/26 [place] [facility] HEMATOLOGY Monocytes 19.4 2.0 - 12.0 09/26 [facility] HEMATOLOGY Lymphocytes 15.7 20.0 - 09/26 [place] 40.0 [facility] HEMATOLOGY Segs 63.2 45.0 - 09/26 [place] 75.0 [facility] HEMATOLOGY Eosinophils 1.2 0.0 - 4.0 09/26 s [facility] HEMATOLOGY Basophils 0.5 0.0 - 1.0 09/26 [facility] HEMATOLOGY RDW 18.5 11.5 - 09/26 [place] 14.5 /2017 [facility] HEMATOLOGY Platelet 199 133 - 450 09/26 [facility] HEMATOLOGY MCHC 30.9 32.0 - 09/26 [place] 36.0 [facility] HEMATOLOGY MPV 8.3 7.4 - 10.4 09/26 [facility] HEMATOLOGY WBC 4.2 3.7 - 10.4 09/26 [facility] HEMATOLOGY RBC 3.92 4.70 - 09/26 [place] 6.10 [facility] HEMATOLOGY Hgb 8.6 14.0 - 09/26 [place] 18.0 [facility] HEMATOLOGY MCH 21.9 27.0 - 09/26 [place] 31.0 [facility] HEMATOLOGY MCV 70.9 80.0 - 09/26 [place] 94.0 [facility] HEMATOLOGY Hct 27.8 42.0 - 09/26 [place] 54.0 [facility] PARATHYROID Ca Norm WB 1.15 1.05 - 09/26 [facility] PROFILE 1. [facility] PARATHYROID Ca Ion WB 1.17 1.05 - 09/26 [facility] PROFILE 1. [facility] CHEM PANEL Phosphorus 3.6 2.5 - 4.5 09/25 [facility] CHEM PANEL eGFR 77 09/25 [facility] Comment: The Medical eGFR is Center [...] Calcium Lvl 8.5 8.5 - 10.5 09/25 [facility] CHEM PANEL Creatinine 0.98 0.50 - 09/25 [facility] Lvl 1.40 [facility] CHEM PANEL BUN 25 7 - 22 09/[address] CHEM PANEL Sodium Lvl 138 135 - 145 09/[address] CHEM PANEL Chloride Lvl 106 95 - 109 09/25 [facility]2017 [facility] CHEM PANEL Potassium Lvl 5.3 3.5 - 5.1 09/[address] CHEM PANEL AGAP 11.3 10.0 - 09/25 [facility] 20.0 [facility] CHEM PANEL CO2 26 24 - 32 09/[address] CHEM PANEL Glucose Lvl 157 70 - 99 09/[address] CHEM PANEL Magnesium Lvl 2.5 1.8 - 2.4 09/25 [facility]2017 [facility] HEMATOLOGY Segs 70.6 45.0 - 09/25 [facility] 75.0 [facility] HEMATOLOGY Microcyte 2+ None Seen 09/25 [facility] *ABN* [facility] (09/25/17 4:06 AM) [place] HEMATOLOGY Monocytes # 1.1 0.0 - 0.8 09/[address] HEMATOLOGY Lymphocytes # 0.8 1.0 - 5.5 09/[address] HEMATOLOGY Basophils 0.4 0.0 - 1.0 09/[address] Center HEMATOLOGY Segs-Bands # 4.6 1.5 - 8.1 09/25 [place] [facility] HEMATOLOGY Eosinophils 0.2 0.0 - 4.0 09/25 [place] [facility] HEMATOLOGY Monocytes 17.1 2.0 - 12.0 09/25 [facility] HEMATOLOGY Lymphocytes 11.7 20.0 - 09/25 40.0 [facility] HEMATOLOGY RDW 18.3 11.5 - 09/25 14.5 [facility] HEMATOLOGY Platelet 191 133 - 450 09/25 [facility] HEMATOLOGY MCH 21.9 27.0 - 09/25 31.0 [facility] HEMATOLOGY MCHC 31.3 32.0 - 09/25 36.0 [facility] HEMATOLOGY Hct 28.0 42.0 - 09/25 54.0 [facility] HEMATOLOGY MCV 70.1 80.0 - 09/25 94.0 [facility] HEMATOLOGY Hgb 8.8 14.0 - 09/25 18.0 [facility] HEMATOLOGY WBC 6.5 3.7 - 10.4 09/25 [facility] HEMATOLOGY RBC 4.00 4.70 - 09/25 6.10 [facility] HEMATOLOGY MPV 8.4 7.4 - 10.4 09/25 [facility] PARATHYROID Ca Ion WB 1.09 1.05 - 09/25 [facility] PROFILE 1. [facility] PARATHYROID Ca Norm WB 1.10 1.05 - 09/25 [facility] PROFILE 1. [facility] CHEM PANEL eGFR 41 09/24 [facility] Comment: The Medical eGFR is Center [...] Calcium Lvl 8.3 8.5 - 10.5 09/24 [facility] CHEM PANEL BUN 30 7 - 22 09/24 [facility] CHEM PANEL AGAP 13.1 10.0 - 09/24 20.0 [facility] CHEM PANEL Creatinine 1.66 0.50 - 09/24 [place] Lvl 1.40 [facility] CHEM PANEL Sodium Lvl 134 135 - 145 09/24 [facility] CHEM PANEL Potassium Lvl 5.1 3.5 - 5.1 09/24 [place] [facility] CHEM PANEL Chloride Lvl 101 95 - 109 09/24 s [facility] CHEM PANEL CO2 25 24 - 32 09/24 [facility] CHEM PANEL Glucose Lvl 530 70 - 99 09/24 Result Comment: [facility] Result(s) called to Radha at 09/24/2017 19:37 by PUNEET. Read back OK. HEMATOLOGY Platelet 242 133 - 450 09/23 [facility] HEMATOLOGY MPV 8.0 7.4 - 10.4 09/23 [facility] HEMATOLOGY MCH 21.5 27.0 - 09/23 [place] 31.0 [facility] HEMATOLOGY MCV 69.4 80.0 - 09/23 [place] 94.0 [facility] HEMATOLOGY MCHC 30.9 32.0 - 09/23 [place] 36.0 [facility] HEMATOLOGY RDW 18.6 11.5 - 09/23 [place] 14.5 [facility] HEMATOLOGY Hct 31.1 42.0 - 09/23 [place] 54.0 [facility] HEMATOLOGY WBC 8.3 3.7 - 10.4 09/23 [facility] HEMATOLOGY RBC 4.48 4.70 - 09/23 [place] 6.10 [facility] HEMATOLOGY Hgb 9.6 14.0 - 09/23 [place] 18.0 [facility] HEMATOLOGY Hypochrom 1+ None Seen 09/23 [facility] (09/23/17 4:12 PM) [facility] HEMATOLOGY Plt Morph Normal 09/23 [facility] (09/23/17 4:12 PM) [facility] HEMATOLOGY Anisocyte 1+ None Seen 09/23 [place] *ABN* [facility] (09/23/17 4:12 PM) [place] HEMATOLOGY Segs 76.6 45.0 - 09/23 [place] 75.0 [facility] HEMATOLOGY Eosinophils 0.2 0.0 - 4.0 09/23 [place] [facility] HEMATOLOGY Lymphocytes 9.8 20.0 - 09/23 [place] 40.0 [facility] HEMATOLOGY Monocytes 13.1 2.0 - 12.0 09/23 [facility]2017 [facility] HEMATOLOGY Basophils 0.3 0.0 - 1.0 09/23 [facility]2017 [facility] HEMATOLOGY Lymphocytes # 0.8 1.0 - 5.5 09/23 [place] [facility] HEMATOLOGY Monocytes # 1.1 0.0 - 0.8 09/23 [place] [facility] HEMATOLOGY Microcyte 2+ None Seen 09/23 [place] *ABN* [facility] (09/23/17 4:12 PM) Center HEMATOLOGY Segs-Bands # 6.4 1.5 - 8.1 09/23 [place] [facility] CHEM PANEL Lactic Acid 1.7 0.5 - 2.2 09/23 [place] [facility]2017 [facility] SPECIAL Hgb A1C 12.0 <=5.6 % 09/23 [facility] CHEMISTRY [address] [place] [address] CHEM PANEL Lactic Acid 1.3 0.5 - 2.2 09/23 [place] [facility] DRUG SCREEN U Phencyc Scr Negative Negative 09/23 [place] *NA* [facility] (09/23/17 2:07 AM) Center DRUG SCREEN UDS Note See Note 09/23 [facility] (09/23/17 2:07 AM) [facility] Center DRUG SCREEN U Julissa Scr Negative Negative 09/23 [place] *NA* [facility] (09/23/17 2:07 AM) Center DRUG SCREEN U Benzodia Positive Negative 09/23 [place] Scr *ABN* [facility] (09/23/17 2:07 AM) Center DRUG SCREEN U Amph Scr Negative Negative 09/23 [place] *NA* [facility] (09/23/17 2:07 AM) Center DRUG SCREEN U Cocaine Scr Positive Negative 09/23 [place] *ABN* /2017 [facility] (09/23/17 2:07 AM) [place] DRUG SCREEN U Cannab Scr Negative Negative 09/23 [place] *NA* [facility] (09/23/17 2:07 AM) [place] DRUG SCREEN U Opiate Scr Positive Negative 09/23 [place] *ABN* [facility] (09/23/17 2:07 AM) [place] URINE AND UA Mucus None Seen None Seen 09/23 [place] [facility] (09/23/17 2:07 AM) /2017 [facility] URINE AND UA Bacteria None Seen None Seen 09/23 [place] [facility] (09/23/17 2:07 AM) /2017 [facility] URINE AND UA Hyal Cast 0-2 0 - 2 09/23 [facility] (09/23/17 2:07 AM) /2017 [facility] URINE AND UA RBC 0-2 /HPF 0 - 2 09/[address] [facility] /[address] [place] [address] URINE AND UA WBC 0-2 /HPF None Seen 09/23 [facility] STOOL /HPF /[address] [place] [address] URINE AND UA Sq Epi Rare /LPF Few /LPF 09/[address] [facility] /[address] [place] [address] URINE AND UA Spec Grav 1.010 <=1.030 09/23 [facility] STOOL /[address] [place] [address] URINE AND UA Turbidity Clear Clear 09/23 [facility] (09/23/17 2:07 AM) /2017 [facility] URINE AND UA Color Yellow Yellow 09/[address] [facility] *NA* /2017 [facility] (09/23/17 2:07 AM) [place] URINE AND UA Ketones Negative Negative 09/23 [facility] STOOL *NA* [facility] (09/23/17 2:07 AM) [place] URINE AND UA Glucose >=1000 Negative 09/[address] [facility] mg/dL mg/dL /2017 [facility] URINE AND UA pH 6.0 5.0 - 8.0 09/23 [facility] STOOL /[address] [place] [address] URINE AND UA Leuk Est Negative Negative 09/23 [facility] STOOL (09/23/17 2:07 AM) /2017 [facility] URINE AND UA 0.2 0.1 - 1.0 09/[address] [facility] Urobilinogen /[address] [place] [address] URINE AND UA Bili Negative Negative 09/23 [facility] STOOL *NA* /2017 Medical (09/23/17 2:07 AM) Center URINE AND UA Protein 30 mg/dL Negative 09/23 [facility] STOOL mg/dL /2017 [facility] URINE AND UA Nitrite Negative Negative 09/23 [facility] STOOL (09/23/17 2:07 AM) /2017 [facility] URINE AND UA Blood Trace Negative 09/23 [facility] STO[place] *ABN* /2017 [facility] (09/23/17 2:07 AM) [place] CHEM PANEL Lactic Acid 2.1 0.5 - 2.2 09/23 [place] Lvl /2017 [facility] HEMATOLOGY Hypochrom 1+ None Seen 09/23 [facility] (09/22/17 11:50 PM) [facility] HEMATOLOGY Anisocyte 1+ None Seen 09/23 [facility] *ABN* [facility] (09/22/17 11:50 PM) [place] HEMATOLOGY Eosinophils # 0.1 0.0 - 0.5 09/23 [place] [facility] HEMATOLOGY Plt Morph Normal 09/23 [facility] (09/22/17 11:50 PM) /2017 [facility] HEMATOLOGY R-time Rapid 0.5 0.4 - 0.7 09/23 [place] [facility] HEMATOLOGY K-time Rapid 0.8 0.6 - 2.3 09/23 [facility] as [facility] HEMATOLOGY Angle Rapid 79 64 - 80 09/23 [facility] HEMATOLOGY [place] 0.4 09/23 [facility] HEMATOLOGY ACT (TEG) 97 86 - 118 09/23 [facility] HEMATOLOGY G-value Rapid 10.4 5.0 - 11.6 09/23 [place] [facility] HEMATOLOGY Max Amplitude 68 52 - 71 09/23 [place] Rapid [facility] HEMATOLOGY Estimated % 0.8 0.0 - 7.5 09/23 [place] L[place] Rapid [facility] TOXICOLOGY Etoh (%) <0.003 09/23 [facility] TOXICOLOGY Ethanol Lvl <3 09/23 [facility] BLOOD BANK Antibody Scrn Negative 09/23 [place] RESULTS (09/22/17 11:18 PM) /2017 [facility] BLOOD BANK ABO/Rh O POS 09/23 [facility] RESULTS [facility] Pathology Reports No Data Provided for This Section Diagnostic Reports Report Value Date Source Spine thoracic 2 EXAM: XR THORACIC SPINE 2 VIEWS 2017 [facility] Medical views DX DATE: 2017 10:[address] INDICATION: - UPRIGHT COMPARISON: None. TECHNIQUE: AP and lateral radiographs of the tho racic spine FINDINGS: Minimal height los s of the T3-T6 vertebral bodies is redemonstrated, which is better appreciated on comparison CT. No interval loss of vertebral body height or change in spinal alignment. Mini mal multilevel degenerative changes of thoracic spine are redemonstrated. Sternotomy wires are again n oted overlying the chest. No paraspinous soft tissue abnormality. IMPRESSION: Minimal height loss of the T3-T6 vertebral bodies, better appreciated on prior CT. No interval loss of vertebral body height or change in spinal alignment. Chest 1view DX EXAM: XR CHEST 1 VIEW 09/24/2017 [facility] edical DATE: 09/24/2017 9:12 AM CDT Cent er INDICATION: - Hypoxemia COMPARISON: 09/22/2017 TECHNIQUE: AP chest FINDINGS: Lines, tubes and hardware: Median sternotomy wir es are present. Lungs and pleura: A calcifie d granuloma seen in the right lung base. Mild bibasilar atelectasis is seen. No definite pleural effusion or pneumothorax is seen. Heart and mediastinum: The c ardiomediastinal silhouette is unchanged. Atherosclerotic calcification affects the aortic arch. Bones: Left-sided rib fractu res are better evaluated on the recent CT from 09/22/2017. IMPRESSION: 1. Mild bibasilar atelectasis. Chest/Abdomen/Pelvis EXAM: CT CHEST WITH CONTRAST 09/22/2017 [facility] IV contrast CT EXAM: CT ABDOMEN AND PELVIS WITH CONTRAST Center DATE: 09/22/2017 11:48 PM CDT INDICATION: [place] [facility] ADDITIONAL INFORMATION: '72 yo male brought in for RESIDENTIAL, +LOC, L hip deform, hx of dementia, [place], pelvic binder placed for hypotension, no helmet.' COMPARISON: None TECHNIQUE: Volumetric CT acq uisition of the chest, abdomen and pelvis following intravenous administration of contrast. Delayed imaging was then performed through the abdomen and pelvis, using a radiati on reduction technique. Axia l, coronal and sagittal reformats. Examination was degraded by motion artifact secondary to patient combativeness despite medication while patient was on the CT scanner. Contrast phases: Venous and delayed IV contrast: 130 mL of Visipaque 320 Oral contrast: None. DLP: 2962.4 mGy-cm [place] SECTION: ER FINDINGS: Within the limita tions of marked motion degradation throughout the scan: Lines and tubes: None. Lower Neck: Supraclavicular soft tissues are unr emarkable. Thoracic Aorta and Mediastin um: No mediastinal hematoma or thoracic aortic injury. There is no pericardial effusion. The heart is normal in size. Coronary arterial calcifications are noted, along with atherosclerotic disease of t he thoracic aorta. The patient is status post median sternotomy. Lungs, Pleura, Diaphragm: Bi basilar dependent subsegmental atelectasis is present. There is a 0.7 cm calcified granuloma within the right lower lobe, series 5 image 45. No pulmonary contusions. The lung s are otherwise clear. No pl eural effusion or pneumothorax. No diaphragmatic injury. Liver and biliary tree: Normal. No injury. No bi liary abnormality. Gallbladder: Surgically absent. Pancreas: Normal. No injury. Spleen: Scattered punctate c alcifications are present, likely representing the sequelae of prior granulomatous disease. Adrenals: Normal. No injury. Kidneys and ureters: Normal. No injury. Bladder: Normal. No injury. Reproductive organs: No injury. Gastrointestinal tract: Normal. No bowel injury. Peritoneum and retroperitoneum: No fluid collect ions or free air. Lymph nodes: Normal. Vasculature: Extensive ather osclerotic disease of the abdominal aorta and its branches.. Spine/ Bones: There are smal l superior endplate compression deformities of the T3-T6 vertebral bodies, with up to 10% vertebral body height loss at the level of T6. No retropulsion of fracture fragments . There are mild buckle frac tures of the anterior aspects of the left [...] Otherwise no acute injury of the thorax, abd omen or pelvis. 4. Large hernia of the vent ral abdominal wall containing fat and nondilated loops of bowel. 5. Atherosclerotic disease of the thoracoabdomi nal aorta and its branches. Spine cervical wo EXAM: CT CERVICAL SPINE WITHOUT CONTRAST 09/22 [facility] contrast CT (ER) DATE: 09/22/2017 11:[address] INDICATION: [place] [facility] [place]DITIONAL INFORMATION: '72 yo male brought in for RESIDENTIAL, +LOC, L hip deform, hx of dementia, [place], pelvic binder placed for hypotension, no helmet.' COMPARISON: TECHNIQUE: Volumetric acqui sition of the cervical spine without contrast. Axial, sagittal and coronal reconstructions. IV contrast: None. DLP: 960.8 mGy-cm UT SECTION: ER FINDINGS: The spine is image d from the skull base to the level of T1 . Exaggerated cervical lordosis is present, which may be secondary to patient positioning or degenerative changes. No acute fracture or malalig nment is identified. Multilevel degenerative changes of the [...] C4-C5 facet joint. No acute soft tissue abnorma lity is identified. Emphysematous changes are noted within the included lung apices. IMPRESSION: 1. No acute abnormality. 2. Multilevel degenerative changes, worse at the levels of C5-C6, and C6-C7, with disc height loss and moderate bilateral neuroforaminal narrowing. Facial bone wo EXAM: CT FACIAL BONES WITHOUT CONTRAST [facility] contrast CT DATE: 09/22/2017 11:30 PM CDT Cent er INDICATION: [place] [facility] [place] COMPARISON: None TECHNIQUE: Volumetric CT acq uisition of the facial bones without contrast. Axial, [...] seen best on image 30 of series 10 . The mandible is intact, and the temporomandibula r joints are well-aligned. Mucosal thickening is presen t within the right maxillary sinus and ethmoidal air cells. The remainder of the paranasal sinuses and mastoid air cells are otherwise clear. Note is made of a remote fracture deformity of the left frontal skull. Soft tissues: Right periorbi dave soft tissue swelling is present, along with soft tissue swelling about the nose and right premaxillary regions. No acute abnormality of the globes is seen. Cataract surgi irasema changes are noted bilate rally. There is no intraconal hematoma. No radiopaque foreign body is identified. IMPRESSION: 1. Nondisplaced right nasal bone fracture. 2. Minimally displaced frac ture of indeterminate age along the base of the left nasal bone adjacent to the lacrimal duct. 3. Soft tissue swelling in the right periorbital and premaxillary regions as well as about the nose. 4. Remote fracture deformity of the left fronta l skull. 5. Mucosal thickening withi n the right maxillary sinus and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
--- OUTSIDE RECORDS SUMMARY | 2019-10-12 07:32 | XMS REPORT | Continuity of Care Document ---
:1945 Author Organization [facility] t Address [address] [place] [address] Care Team Providers Name Role Phone Asked, Pcp Primary Care Physician Unavailable CUPIC Attending Clinician Unavailable Eric Mooney Attending Clinician Eric Mooney Admitting Clinician Problems Condition Condition Condition Status Onset Resolution Last Treating Co mments Source Name Details Category Date Date Treatment Clinician Date LIFE Diagnosis Active 2018-05-28 Mem oria FLIGHT 09-23 14:02:00 l LIFE 00:00: Pee FLIGHT 00 Active 09/23/2017 [facility] SENIOR LIVING Diagnosis Active 2017-09-23 Mem oria 09-22 01:12:00 l SENIOR LIVING 00:00: [place] 00 Active 09/22/2017 [facility] L HIP Diagnosis Active 2018-01-10 Mem oria DISLOCATIO 09-22 16:17:00 l N L HIP 00:00: [place] DISLOCATIO 00 N Active 09/22/2017 [facility] History of History of Problem Resolve Univers angina angina d ity of pectoris pectoris [place] [facility] History of History of Problem Resolve Univers Currently Currently d ity of Wearing Wearing [place] [facility] Eyeglasses Ph ysici ans History of History of Problem Resolve Univers Dentures Dentures d ity of Currently Currently [place] Being Worn [place] Worn Ph ysici ans Pure Pure Problem Active Univers hyperchole hyperchole it y of sterolemia sterolemia [place] [facility] Other Other Problem Active Univers hyperlipid hyperlipid it y of em[place] emia [place] [facility] Cough Cough Problem Active Univers ity of [place] [facility] Urinary Urinary Problem Active Univers hesitancy hesitancy ity of [place] [facility] Joint pain Joint pain Problem Active U nivers of lower of lower [place] of extremity extremity [place] [facility] Snoring Snoring Problem Active Univers ity of [place] [facility] Diabetes Diabetes Problem Active Unive rs mellitus mellitus ity of [place] [facility] Angina Angina Problem Active Univers pectoris pectoris ity of [place] [facility] Incisional Incisional Problem Active U nivers hernia hernia ity of without without [place] mention of mention of Ph ysici obstructio obstructio an s n or n or gangrene gangrene Backache Backache Problem Active Unive rs ity of [place] [facility] Muscle Muscle Problem Active Univers spasm spasm it[facility] of [place] [facility] Shortness Shortness Problem Active Uni vers of breath of breath ity of [place] [facility] Tobacco Tobacco Problem Active Univers abuse abuse ity of counseling counseling [place] [facility] Arthritis Arthritis Problem Active Uni vers [facility] [place] [facility] Hip pain, Hip pain, Problem Active Uni vers left left ity of [place] [facility] POSTERIOR Diagnosis Active 2018-01-10 Memoria DISLOCATIO 16:17:00 l N OF LEFT [place] HIP, INITI POSTERIOR DISLOCATIO N OF LEFT HIP, INITI Active [facility] Allergies, Adverse Reactions, Alerts Allergy Allergy Status Severity Reaction(s) Onset Inactive Treating Comm ents Source Name Type Date Date Clinician Ampicill Propensi [facility]20 Methodi adverse 00:00: st reaction 00 s to drug Aspirin Propensi Active Anaphylaxis [facility] ty to 12-20 Methodi adverse 00:00: st reaction 00 s to drug Codeine Propensi Active Anaphylaxis [facility] ty to 12-20 Methodi adverse 00:00: st reaction 00 s to drug Meperidi Propensi Active [facility] ty to 12-20 Methodi adverse 00:00: st reaction 00 s to drug Penicill Propensi Active [facility] ty to 12-20 Methodi adverse 00:00: st reaction 00 s to drug Tetracyc Propensi Active [facility]axis [facility] ty to 12-20 Methodi adverse 00:00: st reaction 00 s to drug Aspirin Allergy Active Univers TABS to drug ity of ([facility] ) Physici ans Codeine Allergy Active Univers Derivati to drug ity of ves (finding [place] ) Physici ans Demerol Allergy Active Univers TABS to drug ity of (finding [place] ) Physici ans Penicill Allergy Active Univers ins to drug ity of (finding [place] ) Physici ans Tetracyc Allergy Active Univers lines to drug ity of (finding [place] ) Physici ans penicill penicill Active Severe Memori a ins ins l [place] tetracyc tetracyc Active Memori a lines lines l Pee ampicill ampicill Active Memori a in in l [place] codeine codeine Active Memoria l [place] ASA/buta ASA/buta Active Memori a lbital/c lbital/c l affeine/ affeine/ Abrahan n codeine codeine Demerol Demerol Active Memoria l [place] Family History Family Member Diagnosis Comments Start Date Stop Date Source Unknown Family Family history of Family History University of Member Reported Family [place] [facility] History Of Kidney Disease Unknown Family Family history of Family History University of Member Reported Family [place] [facility] History Of Heart Disease Unknown Family Family history of Family History University of Member Diabetes Mellitus [place] [facility] Unknown Family Family history of Family History University of Member Alcoholism [place] [facility] Unknown Family Family history of Family History University of Member Reported Previous [place] [facility] Pulmonary Disease Unknown Family Family history of Family History University of Member Reported Prior [place] [facility] Gallbladder Disease Unknown Family Family history of Family History University of Member Cancer [place] [facility] Unknown Family Family history of Family History University of Member Lung Cancer [place] [facility] Social History Social Habit Start Date Stop Date Quantity Comments Source Sex Assigned [facility] [place] [facility] Alcohol intake 2016-12-20 2016-12-20 Current [facility] thodist 00:00:00 00:00:00 non-drinker of alcohol (finding) Smoking Status Start Date Stop Date Source Social History 2017-09-23 12:28:26 Paul Her chandler Former smoker 2016-12-20 00:00:00 2016-12-20 00:00:00 [place] Medications Ordered Filled Start Stop Current Ordering Indication Dosage Frequency Signature Comments Components Source Medication Medication Date Date Medication? Clinician (SIG) Name Name Nicotine No 7 mg, Memoria -12 Route: l 14:00: TOP, Drug [place] form: ERFILM, Daily, Dosing Weight 81.364, kg, Start date: 09/26/17 9:00:00 CDT, Duration: 30 day, Stop date: 10/25/17 9:00:00 CDT Insulin No Notes: Memoria Lispro 6-11 (Same as: l 21:30: Humalog ) Pee Roll in palms of hands gently; Do not shake `vigorousl y. "Single Patient Use Only " WASTE: F/P - Black; E - Municipal Trash Bin Stable for 28 days at room temperatur e. Expires in days from ____Date Nicotine No 7 mg, Memoria 6-11 Route: l 19:23: TOP, Drug [place] form: ERFILM, Daily, Dosing Weight 81.364, kg, Start date: 09/25/17 14:23:00 CDT, Duration: 30 day, Stop date: 10/25/17 9:00:00 CDT Nicotine No Notes: Memoria 6-11 (Same as: l 17:00: Habitrol) Pee 00 "Remove old patch before applicatio n of new patch" WASTE: F/P - P Waste Black; E - P Waste Black Insulin No 10 unit, Memori a Glargine - Route: l 100 UNT/ML 14:10: SUB-Q, Judith nn Injectable 00 Daily, Solution Dosing Weight 81.364, kg, Start date: 09/25/17 9:10:00 CDT, Duration: 30 day, Stop date: 10/25/17 9:00:00 CDT POLYETHYLEN No Notes: Justin hortencia E GLYCOL 6-11 Dissolve l 3350 14:00: in 8 oz of [place] water or juice. (Same as: Miralax) sennosides, No Notes: Justin hortencia SENIOR LIVING 6-11 (Same as: l 14:00: Senokot) [place] Docusate No Notes: Memoria 6-11 (Same as: l 14:00: Colace) [place] (Do Not Crush) Insulin No Notes: Memoria Lispro 6-11 (Same as: l 01:54: Humalog ) [place] 00 Roll in palms of hands gently; Do not shake `vigorousl y. "Single Patient Use Only " WASTE: F/P - Black; E - Municipal Trash Bin Stable for 28 days at room temperatur e. Expires in days from ____Date Isolyte S No Notes: Memori a PH 7.4 6-11 (Same as: l 1,000 mL 01:51: Isolyte S Herm mark 00 PH 7.4) Isolyte S No Notes: Memori a PH-7.4 6-11 WASTE: F/P l (Bolus) IV 01:51: - Sink; E He rmann 00 - Municipal Trash Bin Insulin No 60 Memoria regular 6-11 units) l 00:54: WASTE: F/P [place] 00 - Black; E - Municipal Trash Bin Stable for 28 days at room temperatur e Expires in days from ____Date PlasmaLyte No Notes: Memor ia A PH-7.4 11 (Same as: l 1,000 mL 00:32: Isolyte S Herm mark 00 PH 7.4) Insulin No Notes: Memoria Glargine 6-10 (Same as: l 100 UNT/ML 22:17: Lantus) Do H ermann Injectable 00 not hold Solution insulin [Lantus] without contacting prescriber WASTE: F/P - Black; E - Municipal Trash Bin "single patient use only" Flomax No Notes: Memoria 6-10 (Same As: l 22:00: Flomax) [place] 00 "Do Not Crush" clopidogrel No Notes: Justin hortencia 6-10 (Same As: l 14:00: Plavix) Pee 00 Insulin No 60 Memoria regular 6-10 units) l 08:48: WASTE: F/P [place] 00 - Black; E - Municipal Trash Bin Stable for 28 days at room temperatur e Expires in days from ____Date Dextrose No 25 gm, 50 Justin hortencia 50% Syringe 6-10 mL, Route: l 08:48: IVP, Drug Form: INJ, Dosing Weight 100, kg, PRN, PRN Blood Glucose Results, Start date: 09/24/17 3:48:00 CDT, Duration: 30 day, Stop date: 10/24/17 3:47:00 CDT Glucagon 2018-0 No 1 mg, Memoria 6 Route: IM, l 08:48: Drug form: PDR/INJ, PRN, Dosing Weight 100, kg, PRN Blood Glucose Results, Start date: 09/24/17 3:48:00 CDT, Duration: 30 day, Stop date: 10/24/17 3:47:00 CDT Simvastatin 2017-0 No Notes: Justin hortencia 6-10 (Same as: l 02:00: Zocor) Dextrose 2017-0 No 25 gm, 50 Justin hortencia 50% Syringe 6-09 mL, Route: l 20:40: IVP, Drug Form: INJ, Dosing Weight 100, kg, PRN, PRN Abnormal Lab Result, Start date: 09/23/17 15:40:00 CDT, Duration: 30 day, Stop date: 10/23/17 15:39:00 CDT, For FSBG < 40 mg/dL Insulin 2017-0 No 60 Memoria regular 09-23 units) l 20:40: WASTE: F/P - Black; E - Municipal Trash Bin Stable for 28 days at room temperatur e Expires in days from ____Date remove 0 No 1 patch, Memoria patch 09-23 Route: l 19:00: TOP, Q24H, Drug form: ERFILM, Start date: 09/23/17 14:00:00 CDT, Duration: 30 day, Stop date: 10/22/17 14:00:00 CDT Tylenol 2017-0 No 650 mg, Memoria 09-23 Route: PO, l 18:48: ONCE, Dosing Weight 100, kg, Start date: 09/23/17 13:48:00 CDT, Stop date: 09/23/17 13:48:00 CDT Insulin 2017-0 No 6 unit, Memoria regular 09-23 Route: l 15:43: SUB-Q, Pee 00 ONCE, Dosing Weight 100, kg, Start date: 09/23/17 10:43:00 CDT, Stop date: 09/23/17 10:43:00 CDT Insulin 2018-0 No 8 unit, Memoria regular 09-23 Route: l 12:25: SUB-Q, [place] 00 ONCE, Dosing Weight 100, kg, Start date: 09/23/17 7:25:00 CDT, Stop date: 09/23/17 7:25:00 CDT isosorbide 2018-0 Yes 30 mg = 1 Me moria mononitrate - tab, PO, l 30 mg oral 10:41: QAM, # 30 He rmann tablet, 00 tab, 0 extended Refill(s) release simvastatin 2018-0 Yes 80 mg = 1 M emoria 80 mg oral - tab, PO, l tablet 10:41: Bedtime, # Judith nn 00 30 tab, 0 Refill(s) clopidogrel 2018-0 Yes 75 mg = 1 M emoria 75 mg oral - tab, PO, l tablet 10:40: Daily, # Pee 00 90 tab, 0 Refill(s) Versed 0 No 1 mg, Memoria 09-23 Route: l 07:36: IVP, ONCE, Dosing Weight 100, kg, Priority: STAT, Start date: 09/23/17 2:36:00 CDT, Stop date: 09/23/17 2:36:00 CDT Ketamine 2017-0 No 10 mg, Memoria 09-23 Route: IV, l 07:36: ONCE, Dosing Weight 100, kg, Start date: 09/23/17 2:36:00 CDT, Stop date: 09/23/17 2:36:00 CDT Epinephrine 0 No Notes: Justin hortencia 0.01 MG/ML 09-23 (Same as: l / Lidocaine 07:09: Xylocaine H ermann Hydrochlori 00 w/Epinephr de 10 MG/ML ine) Injectable Solution Lidocaine 0 No Notes: Memori a Hydrochlori 09-23 Apply only l de 0.05 07:00: once for Abrahan n MG/MG 00 up to 12 Transdermal hours in a Patch 24-hour [Lidoderm] period (12 hours on and 12 hours off). (Same as: Lidoderm) "Remove old patch before applicatio n of new patch" Lovenox No Notes: Memoria 09-23 (Same as: l 06:29: Lovenox) [place] 00 Acetaminoph No Notes: Max Memoria en 09-23 acetaminop l 06:28: hen 4000 [place] 00 mg/day (4 gm/day). (Same as: Tylenol Extra Strength) gabapentin No Notes: Memor ia 09-23 (Same as: l 06:28: Neurontin) Morphine No 4 mg, Memoria 09-23 Route: l 06:25: IVP, ONCE, Pee 00 Dosing Weight 100, kg, Priority: STAT, Start date: 09/23/17 1:25:00 CDT, Stop date: 09/23/17 1:25:00 CDT Zofran No 4 mg, Memoria 09-23 Route: l 06:25: IVP, Drug form: INJ, ONCE, Dosing Weight 100, kg, Priority: STAT, Start date: 09/23/17 1:25:00 CDT, Stop date: 09/23/17 1:25:00 CDT iodixanol No 130 mL, Memor ia 09-23 Route: l 05:12: IVP, Drug Form: SOLN, kg, ONCALL, STAT, Start date: 09/23/17 0:12:00 CDT, Duration: 1 doses or times, Dose = 2.2ml/kg, Max dose = 150ml -- "To be infused by Radiology Staff ONLY" Saline No Notes: Memoria Flush 0.9% 09-23 (Same as: l 04:51: BD Pee 00 Posiflush) Plavix 75 Plavix 75 Yes Unive rs MG Oral MG Oral ity of Tablet Tablet [place] [facility] Zocor TABS Zocor TABS Yes Uni vers [facility]y [facility] [place] [facility] Vital Signs Vital Name Observation Time Observation Value Comments Source Respitory Rate 2017-09-27 01:31:00 Isaura Palmer Systolic (mm Hg) 2017-09-27 01:31:00 Justin rial [place] Diastolic (mm Hg) 2017-09-27 01:31:00 Mem orial [place] Heart Rate 2017-09-27 01:31:00 [facility] [place] Temperature Oral (F) 2017-09-27 01:31:00 99.6 F Memorial Pee Respitory Rate 2017-09-26 21:25:00 Memori al [place] Heart Rate 2017-09-26 21:25:00 Memorial Pee Systolic (mm Hg) 2017-09-26 21:25:00 Justin rial Pee Diastolic (mm Hg) 2017-09-26 21:25:00 Mem orial [place] Temperature Oral (F) 2017-09-26 21:25:00 97.9 F [facility] [place] Respitory Rate 2017-09-26 17:40:00 Memori al Pee Systolic (mm Hg) 2017-09-26 15:59:00 Justin rial [place] Diastolic (mm Hg) 2017-09-26 15:59:00 Mem orial Pee Heart Rate 2017-09-26 15:59:00 Memorial Pee Temperature Oral (F) 2017-09-26 15:59:00 97.9 F Memorial Pee Height 2017-09-24 10:09:00 177.8 cm [facility] [place] BMI Calculated 2017-09-24 10:09:00 Memori al [place] Weight 2017-09-24 10:09:00 [facility] [place] Procedures Procedure Date / Time Performing Clinician Source Performed [U] XRAY HIP UNILATERAL 2019-07-01 00:00:00 [facility] MIN 2 VWS RIGHT [id number] Hip without contrast 2019-05-27 00:00:00 [facility] [id number] Physicians Physical Therapy 2019-05-14 00:00:00 [facility] Physicians MR Hip wo contrast [id number] 2019-05-01 00:00[facility]00 [facility] of Knee Surgery [facility]i [facility] Physicians History of Hernia Repair Univers [facility] Physicians History of Incisional [facility] Hernia Repair - Recurrent Physic ians Plan of Care Planned Activity Planned Date Details Comments Source Future Scheduled 2019-11-16 INFLUENZA VACCINE [place] [facility] 00:00:00 [code = INFLUENZA VACCINE] Future Scheduled 2011-09-26 65+ PNEUMOCOCCAL [facility] Test 00:00:00 VACCINE (1 of 2 - PCV13) [code = 65+ PNEUMOCOCCAL VACCINE (1 of 2 - PCV13)] Future Scheduled 1996 COLONOSCOPY SCREENING Ho luzmaria [facility] Test 00:00:00 [code = COLONOSCOPY SCREENING] Future Scheduled 1996 SHINGLES VACCINES (#1) Heriberto jones [facility] Test 00:00:00 [code = SHINGLES VACCINES (#1)] Encounters Start End Encounter Admission Attending Care Care Encounter Source Date/Time Date/Time Type Type Clinicians Facility Department ID 2019-07-01 2019-07-01 [facility] [id number] Univers 13:30:00 13:30:00 t; MENG MARIN M.D. [facility] 2019-06-25 2019-06-25 [facility] [id number] Univers 13:30:00 13:30:00 t; MENG MARIN M.D. [place] [facility] 2019-05-27 2019-05-27 [facility] [id number] Univers 11:15:00 11:15:00 t; MENG MARIN M.D. [facility] 2019-05-24 2019-05-24 [facility] [id number] Univers 11:15:00 11:15:00 t; [place] [facility] 2019-05-14 2019-05-14 [facility] [id number] Univers 10:15:00 10:15:00 t; MENG MARIN M.D. [facility] 2019-05-13 2019-05-13 [facility] [id number] Univers 11:15:00 11:15:00 t; MENG [place]. [place] [facility] 2019-05-01 2019-05-01 [facility] [id number] Univers 11:00:00 11:00:00 t; MENG MARIN M.D. - [facility] 2017-09-22 2017-09-26 Outpatient V[facility] [id number] 23:19:00 23:45:00 Abe Reyes 67 Results Test Description Test Time Test Comments Results Result Sourc e Comments [U] XRAY HIP 2019-05-27 Images University o f UNILATERAL MIN 2 12:45:00 acquired, not [place] VWS RIGHT [id number] reported on Physicia ns this accession number. [U] XRAY HIP 2019-05-01 Images University o f UNILATERAL MIN 2 13:02:00 acquired, not [place] VWS RIGHT [id number] reported on Physicia ns this accession number. CHEM PANEL 2017-09-26 2.3 Memorial 12:03:00 [place] CHEM PANEL 2017-09-26 2.5 Memorial 12:03:00 Pee ELECTROLYTES 2017-09-26 9.5 Memorial 12:03:00 Pee ELECTROLYTES 2017-09-26 84 Memorial 12:03:00 [place] ELECTROLYTES 2017-09-26 8.2 Memorial 12:03:00 Pee ELECTROLYTES 2017-09-26 30 Memorial 12:03:00 [place] ELECTROLYTES 2017-09-26 4.5 Memorial 12:03:00 [place] ELECTROLYTES 2017-09-26 100 Memorial 12:03:00 [place] ELECTROLYTES 2017-09-26 135 Memorial 12:03:00 [place] ELECTROLYTES 2017-09-26 0.92 Memorial 12:03:00 [place] ELECTROLYTES 2017-09-26 377 Memorial 12:03:00 Pee ELECTROLYTES 2017-09-26 15 Memorial 12:03:00 [place] HEMATOLOGY 2017-09-26 0.8 Memorial 12:03:00 [place] HEMATOLOGY 2017-09-26 2+ Memorial 12:03:00 *ABN*(09/26/17 Pee 7:03 AM) HEMATOLOGY 2017-09-26 2.7 Memorial 12:03:00 Pee HEMATOLOGY 2017-09-26 0.7 Memorial 12:03:00 [place] HEMATOLOGY 2017-09-26 19.4 Memorial 12:03:00 Pee HEMATOLOGY 2017-09-26 15.7 Memorial 12:03:00 [place] HEMATOLOGY 2017-09-26 63.2 Memorial 12:03:00 [place] HEMATOLOGY 2017-09-26 1.2 Memorial 12:03:00 Pee HEMATOLOGY 2017-09-26 0.5 Memorial 12:03:00 [place] HEMATOLOGY 2017-09-26 18.5 Memorial 12:03:00 [place] HEMATOLOGY 2017-09-26 199 Memorial 12:03:00 [place] HEMATOLOGY 2017-09-26 30.9 Memorial 12:03:00 Pee HEMATOLOGY 2017-09-26 8.3 Memorial 12:03:00 Pee HEMATOLOGY 2017-09-26 4.2 Memorial 12:03:00 [place] HEMATOLOGY 2017-09-26 3.92 Memorial 12:03:00 [place] HEMATOLOGY 2017-09-26 8.6 Memorial 12:03:00 [place] HEMATOLOGY 2017-09-26 12:03:00 Test Item Value Reference Range Interpretation Comme nts MCH (test code = MCH) 21.9 pg 27.0-31.0 [facility] [id number] 12:03:0070.9[facility]ann[facility]MATOLOGY 2017-09-26 12:03:0027.8[facility] HermannPARATHYROID BHYYNGY3672-91-15 12:03:00 1.15[facility] HermannPARATHYROID [id number] 12:03:001.17[facility] [place] CHEM [id number] 09:06:003.6[facility] HermannCHEM NBYKQ2370-90-02 09:06:0077 [facility]annCHEM BFPDP7141-06-00 09:06:008.5[facility] HermannCHEM PANEL 2017 09:06:000.98[facility] HermannCHEM TQBUF5109-78-11 09:06:0025[facility] HermannCHEM QWCRH2441-24-23 09:06:49823Fhgojnjl HermannCHEM BHLSA6195-34-20 09:06:72261Pcnoksmg HermannCHEM RGMCP3106-15-43 09:06:005.3[facility] HermannCHEM LUZKF3622-67-54 09:06:0011.3[facility] HermannCHEM ZVNTY7827-20-00 09:06:0026 [facility] HermannCHEM TGKID3595-24-44 09:06:29228Obpxelpq HermannCHEM PANEL 2017 09:06:002.5[facility] HoukqqkPLYYWQSFWS3491-26-64 09:06:0070.6[facility] NoulcmiXWIURVTHJJ7585-25-68 09:06:002+ *ABN*(09/25/17 4:06 AM)[facility] [place] LJJIPDKJHF2357-77-91 09:06:001.1[facility] WyjhhmlVBXOMFJRLF8310-14-84 09:06:000.8 Memorial WtnrydxTVLNZTXZYJ8661-24-42 09:06:000.4[facility] HermannHEMATOLOGY 2017 09:06:004.6[facility] JhqncdaHHHGMQWODO6247-37-59 09:06:000.2[facility] LnglfxtORFPIDUGMB2269-28-87 09:06:0017.1[facility]orial LkffogzSZQVGIAZCT7110-40-60 09:06:0011.7[facility] KnzgumsBCWZBMMRSH9977-10-05 09:06:0018.3[facility] Pee MMSJEFJSNJ4882-40-70 09:06:77985Gcrkclkm InghhffOUQGBNTPYN1261-11-05 09:06:00 Test Item Value Reference Range Interpretation Comments MCH (test code = MCH) 21.9 pg 27.0-31.0 Memorial WudhjndRQTPKNFPSM3034-62-02 09:06:0031.3[facility] HermannHEMATOLOGY 2017 09:06:0028.0[facility] NfysseiUCWHETOEXE5263-75-83 09:06:0070.1[facility] UpwwjzzBVJZKVLBZR8701-95-06 09:06:008.8[facility] RkfobohDJZRSHCERD7958-75-12 09:06:006.5[facility] ZvpplslUMQZABFDVN9367-53-31 09:06:004.00[facility] [place] XPXYVHYZXJ8288-68-41 09:06:008.4[facility] HermannPARATHYROID HYNMORS5996-86-73 09:06:001.09[facility] HermannPARATHYROID UGFUJVJ3464-66-23 09:06:001.10[facility] HermannCHEM VVYDE0535-01-31 23:15:0041[facility] HermannCHEM WQMDH2796-18-09 23:15:008.3[facility] HermannCHEM ERVIS6092-43-57 23:15:0030[facility] HermannCHEM QNWZO5646-16-85 23:15:0013.1[facility] HermannCHEM UOQYS5083-00-48 23:15:001.66 [facility] HermannCHEM RRTTF8191-66-96 23:15:69747Hfjicdwm HermannCHEM PANEL 2017-09-24 23:15:005.1[facility] HermannCHEM EEBNT6869-26-74 23:15:14149Mqjdawnk HermannCHEM JSAYZ1109-81-34 23:15:0025[facility] HermannCHEM SSIAZ7196-21-45 23:15:96088Jrtuyqxx DqrddqlWTXMRLLJKP6545-84-99 21:12:89767Vkxnikjh Pee UBURFHAKLA1657-69-31 21:12:008.0[facility] LtyfwezTWSUAYBAXT7838-53-40 21:12:00 Test Item Value Reference Range Interpretation Comments MCH (test code = MCH) 21.5 pg 27.0-31.0 Memorial FcqmoepLJCTWCHAXQ5736-66-79 21:12:0069.4[facility] HermannHEMATOLOGY 2017-09-23 21:12:0030.9[facility] FksweaqNCEACIYHAP3807-22-73 21:12:0018.6[facility] ZblmvhkSYGXWUVDVN7474-86-11 21:12:0031.1[facility] CoiwzjbDXVNSLLVRE8885-26-71 21:12:008.3[facility] WnqbrylENRTVMPRXN4646-51-76 21:12:004.48[facility] [place] YSZKCCKITZ5788-15-14 21:12:009.6[facility] EizdeszAPUQRVVFAO9362-48-24 21:12:001+ (09/23/17 4:12 PM)[facility] PxdesklMATOPHKGIT8180-23-52 21:12:00Normal (09/23/17 4:12 PM)[facility] OqrpxvuHAJCKXYCDH9366-08-25 21:12:001+ *ABN*(09/23/17 4:12 PM) [facility] SurgtgeBZOLWUTCUE3820-84-50 21:12:0076.6[facility] HermannHEMATOLOGY 2017-09-23 21:12:000.2[facility] CenkmjaXXTQBWEAQM8919-84-89 21:12:009.8[facility] UaqcyytYDNVWFMKXX5746-28-73 21:12:0013.1[facility] CcpnxseSMMPICDRSE8599-74-63 21:12:000.3[facility] HiudenuXKAQQYFGHL2069-56-10 21:12:000.8[facility] [place] MDKRKFFHTJ9909-37-05 21:12:001.1[facility] IavjbfuBUIQAIDULD8287-79-14 21:12:002+ *ABN*(09/23/17 4:12 PM)[facility] GtdkcpvOCEPTMCLDP8422-53-33 21:12:006.4[facility] HermannCHEM YEQYT0552-98-25 19:42:001.7[facility] HermannSPECIAL CHEMISTRY 2017-09-23 19:42:0012.0[facility] HermannCHEM GVDAF6570-87-76 08:42:461.3[facility] HermannDRUG XATVGA3908-40-25 07:07:00Negative *NA*(09/23/17 2:07 AM)[facility] HermannDRUG RPMDQP4017-56-81 07:07:00See Note (09/23/17 2:07 AM)[facility] [place] DRUG VPBQMJ7253-68-65 07:07:00Negative *NA*(09/23/17 2:07 AM)[facility] HermannDRUG MWNBQR7540-85-71 07:07:00Positive *ABN*(09/23/17 2:07 AM)[facility] HermannDRUG YKQZHG2984-53-61 07:07:00Negative *NA*(09/23/17 2:07 AM)[facility] HermannDRUG NLGASW6998-89-28 07:07:00Positive *ABN*(09/23/17 2:07 AM)[facility] HermannDRUG VLJPID0610-44-44 07:07:00Negative *NA*(09/23/17 2:07 AM)[facility] HermannDRUG YMZQHL3779-47-01 07:07:00Positive *ABN*(09/23/17 2:07 AM)[facility]annURINE AND WBBGT6344-65-09 07:07:00None Seen (09/23/17 2:07 AM)[facility]annUR[facility] AND [id number] 07:07:00None Seen (09/23/17 2:07 AM)[facility] [id number] 07:07:000-2 (09/23/17 2:07 AM)[facility] STOOL 2017-09-23 07:07:00 Test Item Value Reference Range Interpretation Comments UA Spec Grav (test code = UA Spec 1.010 1 Grav) [facility] [id number] 07:07:00Clear (09/23/17 2:07 AM)[facility] [id number] 07:07:00Yellow *NA*(09/23/17 2:07 AM)[facility] [id number] 07:07:00Negative *NA*(09/23/17 2:07 AM)[facility] [id number] 07:07:00 Test Item Value Reference Range Interpretation Comments UA pH (test code = UA pH) 6.0 1 5.0-8.0 [facility] [id number] 07:07:00Negative (09/23/17 2:07 AM) [facility] [id number] 07:07:000.2[facility] [id number] 07:07:00Negative *NA*(09/23/17 2:07 AM)[facility] [id number] 07:07:00Negative (09/23/17 2:07 AM)[facility] STOOL 2017-09-23 07:07:00Trace *ABN*(09/23/17 2:07 AM)[facility] 2017-09-23 04:50:082.1[facility] KlwyvljOUBDZZLAQG8036-09-53 04:50:081+ (09/22/17 11:50 PM)[facility] AygjypnLZIUVFYPPQ2455-31-03 04:50:081+ *ABN*(09/22/17 11:50 PM) [facility] [id number] 04:50:080.1[facility] 2017-09-23 04:50:08Normal (09/22/17 11:50 PM)[facility]mq[facility]boVZWYDOSBWQ4740-85-29 04:50:08 Test Item Value Reference Range Interpretation Comments R-time Rapid (test code = R-time 0.5 min 0.4-0.7 Rapid) [id number] 04:50:08 Test Item Value Reference Range Interpretation Comments K-time Rapid (test code = K-time 0.8 min 0.6-2.3 Rapid) [facility] CenterEjcnedcBQMBNFSPKP3976-91-24 04:50:08 Test Item Value Reference Range Interpretation Comments Angle Rapid (test code = Angle 79 degrees 64-80 Rapid) [facility] [id number] 04:50:08 Test Item Value Reference Range Interpretation Comments Split Point Rapid (test code = Split 0.4 min Point Rapid) [facility] [id number] 04:50:08 Test Item Value Reference Range Interpretation Comments ACT (TEG) Rapid (test code = ACT (TEG) 97 s 86-118 Rapid) [facility] CenterEdaegtwUGQRTKSBZL3562-62-50 04:50:0810.4[facility] 2017-09-23 04:50:08 Test Item Value Reference Range Interpretation Comments Max Amplitude Rapid (test code = Max 68 mm 52-71 Amplitude Rapid) [facility] HospitalDjbwgllOTEMOXZLEZ3577 04:50:080.8[facility]ann[facility]OLOGY 2017-09-23 04:50:08<0.003[facility] [id number] 04:50:08<3 [facility] [id number] 04:18:00Negative (09/22/17 11:18 PM) [facility]
[2019-10-12 08:24] LABS: Absolute Lymphocytes (CBC) 0.5 K/uL (0.7-4.9); Basophils % 0.2 % (0-1.3); Hematocrit 31.3 % (39.6-49.0); Lymphocytes % 3.6 % (15.3-44.8); MPV 7.1 fL (7.6-11.3); RBC Red Blood Cell Count 4.58 M/uL (4.33-5.43)
[2019-10-12 08:37] LABS: Potassium 4.2 mmol/L (3.5-5.1)
[2019-10-12] MEDS ORDERED: NA CHLORIDE 0.9% 500 ML ONE (08:49)
[2019-10-12] MEDS ORDERED: ACETAMINOPHEN 500 MG TAB ONE (08:51)
[2019-10-12 09:04] LABS: Urine Amorphous Sediment 2+ /HPF (NONE SEEN); Urine Bacteria <20 /HPF (NONE SEEN); Urine Culture Reflex Order NOT NEEDED; Urine RBC <5 /HPF (NONE SEEN)
[2019-10-12 09:14] LABS: Barbiturates NEGATIVE (NEGATIVE); Benzodiazepines NEGATIVE (NEGATIVE); Cocaine POSITIVE (NEGATIVE); METHAMPHETAM NEGATIVE (NEGATIVE); Methadone NEGATIVE (NEGATIVE); Opiates NEGATIVE (NEGATIVE); Phencyclidine NEGATIVE (NEGATIVE); THC Cannibis NEGATIVE (NEGATIVE)
[2019-10-12] MEDS ORDERED: VANCOMYCIN/NS 1 gm 1 GM/250 ML BAG IV ONE (09:15)
[2019-10-12] MEDS ORDERED: IBUPROFEN 400 MG TAB ONE (09:16)
[2019-10-12 09:39] LABS: Urine Blood NEGATIVE (NEG); Urine Glucose TRACE (NEG); Urine Protein 2+ (NEG); Urine pH 5.5 (5.0-7.0)
[2019-10-12 10:12] LABS: Blood Morphology Comment NOTED (NOT SEEN); Hypochromasia 1+; Platelet Estimate ADEQ; Urine White Blood Cell Casts OK
[2019-10-12] MEDS ORDERED: NA CHLORIDE 0.9% 1,000 ML ONE ×2 (10:33→11:38)
--- NOTE | 2019-10-12 10:44 | RAD REPORT ---
EXAM DESCRIPTION: CTAbdomen Pelvis W Contrast - 10/12/2019 10:18 am CLINICAL HISTORY: Abdominal pain. AMS, draining abd wound, possible EC fistula COMPARISON: Abdomen Pelvis W Contrast dated 11/26/2018; Abdomen Pelvis W Contrast dated 12/21/2017; Hip Right Wo Cont dated 03/06/2019 TECHNIQUE: Biphasic CT imaging of the abdomen and pelvis was performed with 100 ml non-ionic IV cont rast. All CT scans are performed using dose optimization technique as appropriate and may include automated exposure control or mA/KV adjustment according to patient size. FINDINGS: Small 4 mm nodule is present medial right lung base, unchanged. Linear atelectasis is pres ent in both lung bases. The liver demonstrates mild fatty infiltration. No focal mass or biliary dilatation. Cholecystectomy clips. The spleen, pancreas adrenal glands and kidneys show no acute process. A large ventral hernia is present. No bowel obstruction is seen. No drainable abscess collection evid ent. Irregular skin thickening is seen along the inferior pole of the hernia. No free intraperitoneal air seen. The appendix is normal. No evidence of significant lymphadenopathy. Chronic ununited fracture of the proximal right femoral neck. IMPRESSION: Large ventral hernia is seen without drainable abscess collection or bowel obstruction. Ununited chronic fracture proximal right femoral neck.
--- NOTE | 2019-10-12 11:00 | ER ---
Nurse's Notes [facility] Name: Rigoberto Hutchins Age: 74 yrs Sex: Male : 1945 Arrival Date: 10/12/2019 Time: 07:26 Bed 7 Private MD: Diagnosis: Sepsis, unspecified organism;Diabetic wound infection;Cellulitis, unspecified Presentation: 10/11 08:00 Chief complaint: EMS states: called out for generalized weakness, infected left foot, em and temp. of 99.3, pt A\T\O4. Coronavirus screen: Proceed with normal triage. Patient denies a cough. Patient denies shortness of breath or difficulty breathing. Patient reports a measured and/or subjective temperature greater than 100.4F. Patient denies travel on a cruise ship or to a country the [facility] currently lists as an affected area. Patient denies contact with known and/or suspected case of COVID-19. Ebola Screen: Patient negative for fever greater than or equal to 101.5 degrees Fahrenheit, and additional compatible Ebola Virus Disease symptoms Patient denies exposure to infectious person. Patient denies travel to an Ebola-affected area in the 21 days before illness onset. No symptoms or risks identified at this time. Initial Sepsis Screen: Does the patient meet any 2 criteria? Temp <36.0*C (96.8*F)) or > 38.3*C (100.9*F). No. Patient's initial sepsis screen is negative. Does the patient have a suspected source of infection? Yes: Skin breakdown/wound. Risk Assessment: Do you want to hurt yourself or someone else? Patient reports no desire to harm self or others. Onset of symptoms was October 12, 2019. 08:00 Method Of Arrival: EMS: [facility] em 08:00 Acuity: SUNDAY 3 em Historical: - Allergies: 08:23 Ampicillin; em 08:23 Aspirin; em 08:23 Codeine; em 08:23 Demerol; em 08:23 PENICILLINS; em 08:23 Tetracycline; em - Home Meds: 08:23 Insulin: Novolin 70/30 Sub-Q [Active]; Plavix 75 mg Oral tab 1 tab once daily [Active]; em isosorbide mononitrate 30 mg Oral Tb24 1 tab once daily [Active]; NitroQuick SL 0.4 mg as needed [Active]; cyclobenzaprine 10 mg Oral tab [Active]; - PMHx: 08:23 abdominal hernia; Diabetes - IDDM; Hepatitis; Hernia; Hyperlipidemia; non healing em wounds- sacrum and L lower leg; - Immunization history:: Adult Immunizations unknown. - Social history:: Smoking status: unknown. - Family history:: not pertinent. - Hospitalizations: : No recent hospitalization is reported. Screenin:00 Abuse screen: Denies threats or abuse. Nutritional screening: No deficits noted. em Tuberculosis screening: No symptoms or risk factors identified. Fall Risk Secondary diagnosis (15 points) impaired mobility, IV access (20 points). Total Fishman Fall Scale indicates Low Risk Score (25-44 pts). Side Rails Up X 2 Placed close to Nursing Station Frequent Obs/Assesments occuring. Assessment: 07:50 Reassessment: cleaned hands, feet and groin from dried feces, applied new linens, gown, em and applied brief. 08:00 General: Appears in no apparent distress. comfortable, ill, unkempt, malnourished, em Behavior is calm, cooperative, Smells of feces. Reports fever for 12-24 hours. Pain: Complains of pain in left foot. Neuro: Level of Consciousness is awake, alert, obeys commands, Oriented to person, place, time, situation, Appropriate for age. Cardiovascular: Patient's skin is warm and dry. Rhythm is sinus rhythm. Respiratory: Airway is patent Respiratory effort is even, unlabored, Respiratory pattern is regular, symmetrical, Denies cough, shortness of breath. GI: Abdomen is large umbilical hernia noted, drainage noted underneath, appears light green like bile Last BM was October 12, 2019. Derm: Skin is intact, is thin, Skin is pink, warm \T\ dry. Wound noted heel of left foot Wound is unstageable pressure ulcer noted to the left heel. Musculoskeletal: Range of motion: intact in all extremities. 09:07 Reassessment: Patient and/or family updated on plan of care and expected duration. Pain em level reassessed. Patient is alert, oriented x 3, equal unlabored respirations, skin warm/dry/pink. 09:25 Reassessment: pt soiled bed, pt had large amount of watery stool, new bed linen em replaced, placed pt in new gown, brief and ashly pads, delayed in initiating antibiotics and NS. 10:15 Reassessment: Patient appears in no apparent distress at this time. pt wheeled to CT em via stretcher. 11:25 Reassessment: Patient appears in no apparent distress at this time. Patient and/or em family updated on plan of care and expected duration. Pain level reassessed. Patient is alert, oriented x 3, equal unlabored respirations, skin warm/dry/pink. 12:30 Reassessment: hospitalist at bedside. em 13:00 Reassessment: Patient appears in no apparent distress at this time. Patient and/or em family updated on plan of care and expected duration. Pain level reassessed. Patient is alert, oriented x 3, equal unlabored respirations, skin warm/dry/pink. 13:20 Reassessment: cleaned and changed pt prior to going to the floor. em Vital Signs: 08:00 BP 121 / 64; Pulse 95; Resp 18; Temp 101.1(O); Pulse Ox 97% on R/A; em 08:45 BP 107 / 71; Pulse 98; Resp 16; Pulse Ox 96% on R/A; em 10:00 BP 86 / 44; Pulse 78; Resp 16; Pulse Ox 96% on R/A; em 10:28 BP 105 / 46; Pulse 74; Resp 16; Pulse Ox 99% on R/A; em 10:49 BP 101 / 53; Pulse 69; Resp 16; Pulse Ox 99% on R/A; em 11:12 Temp 97.9(O); em 11:27 BP 95 / 47; Pulse 62; Resp 18; Pulse Ox 95% on R/A; em 11:55 BP 112 / 54; Pulse 71; Resp 14; Pulse Ox 94% on R/A; em 12:15 BP 104 / 57; Pulse 67; Resp 18; Pulse Ox 99% on R/A; em 12:45 BP 113 / 55; Pulse 77; Resp 16; Pulse Ox 99% on R/A; em ED Course: 07:26 Patient arrived in ED. iw 07:28 Pierre Ramos MD is Attending Physician. rn 08:00 Arm band placed on. em 08:00 Patient has correct armband on for positive identification. Placed in gown. Bed in low em position. Call light in reach. Side rails up X2. 08:10 Initial lab(s) drawn, by me, sent to lab. Inserted saline lock: 22 gauge in left em forearm, using aseptic technique. Blood collected. 08:16 Nic Parry, RN is Primary Nurse. em 08:21 Triage completed. em 09:13 XRAY Chest (1 view) In Process Unspecified. EDMS 10:04 EKG done, by ED staff, reviewed by Pierre Ramos MD. dh3 10:17 CT Abd/Pelvis - PO and IV Contrast In Process Unspecified. EDMS 10:58 Prince Lujan MD is Hospitalizing Provider. rn 13:29 No provider procedures requiring assistance completed. Patient admitted, IV remains in em place. Administered Medications: 09:10 Drug: Motrin 800 mg Route: PO; em 11:15 Follow up: Response: No adverse reaction; Temperature is decreased em 09:40 Drug: NS 0.9% 500 ml Route: IV; Rate: bolus; Site: left forearm; em 11:14 Follow up: IV Status: Completed infusion; IV Intake: 500ml em 09:50 Drug: vancoMYCIN 1 grams Route: IVPB; Infused Over: 2 hrs; Site: right antecubital; em 13:20 Follow up: Response: No adverse reaction; IV Status: Completed infusion; IV Intake: em 250ml 10:28 Drug: NS 0.9% 1000 ml Route: IV; Rate: 1000 ml; Site: left forearm; em 12:30 Follow up: IV Status: Completed infusion; IV Intake: 1000ml em 11:32 Drug: NS 0.9% 1000 ml Route: IV; Rate: 1000 ml; Site: left forearm; em 12:30 Follow up: IV Status: Completed infusion; IV Intake: 1000ml em 13:21 Drug: LevaQUIN 750 mg Volume: 150 ml; Route: IVPB; Infused Over: 90 mins; Site: left em forearm; Intake: 11:14 IV: 500ml; Total: 500ml. em 12:30 IV: 1000ml; Total: 1500ml. em 12:30 IV: 1000ml; Total: 2500ml. em 13:20 IV: 250ml; Total: 2750ml. em Outcome: 10:59 Decision to Hospitalize by Provider. rn 13:29 Admitted to Med/surg accompanied by tech, via stretcher, room 213, with chart, Report em called to JULIO Yates 13:29 Condition: good 13:29 Instructed on the need for admit, Demonstrated understanding of instructions. 13:31 Patient left the ED. em Signatures: Dispatcher [employer] Nic Stevenson, Cata Mondragon RN, RN RN iw Nieto, Roman, MD MD rn Herrera, Linda dh3
--- NOTE | 2019-10-12 11:00 | EDPHYS ---
Physician Documentation [facility] Name: Rigoberto Hutchins Age: 74 yrs Sex: Male : 1945 Arrival Date: 10/12/2019 Time: 07:26 Bed 7 Private MD: ED Physician Pierre Ramos HPI: 10/11 07:48 This 74 yrs old Male presents to ER via Unassigned with complaints of AMS. rn 07:48 The patient presents with decreased responsiveness. Onset: The symptoms/episode rn began/occurred at an unknown time. Possible causes: unknown. Current symptoms: In the emergency department the patient's symptoms are unchanged from the initial presentation. The patient has experienced similar episodes in the past. It is unknown whether or not the patient has recently seen a physician. 911 called for generalized weakness and unable to get off of couch, denies fever, denies injury. Reports increased pain to left foot. Denies vomiting, + diarrhea. No chest pain/sob. . Historical: - Allergies: 08:23 Ampicillin; em 08:23 Aspirin; em 08:23 Codeine; em 08:23 Demerol; em 08:23 PENICILLINS; em 08:23 Tetracycline; em - Home Meds: 08:23 Insulin: Novolin 70/30 Sub-Q [Active]; Plavix 75 mg Oral tab 1 tab once daily [Active]; em isosorbide mononitrate 30 mg Oral Tb24 1 tab once daily [Active]; NitroQuick SL 0.4 mg as needed [Active]; cyclobenzaprine 10 mg Oral tab [Active]; - PMHx: 08:23 abdominal hernia; Diabetes - IDDM; Hepatitis; Hernia; Hyperlipidemia; non healing em wounds- sacrum and L lower leg; - Immunization history:: Adult Immunizations unknown. - Social history:: Smoking status: unknown. - Family history:: not pertinent. - Hospitalizations: : No recent hospitalization is reported. ROS: 07:51 Constitutional: Negative for fever, chills, and weight loss, Eyes: Negative for injury, rn pain, redness, and discharge, Neck: Negative for injury, pain, and swelling, Cardiovascular: Negative for chest pain, palpitations, and edema, Respiratory: Negative for shortness of breath, cough, wheezing, and pleuritic chest pain, Abdomen/GI: Negative for abdominal pain, nausea, vomiting, and constipation, MS/Extremity: Negative for injury and deformity, Skin: + draining wounds to left lower leg and abd wall Neuro: Negative for headache, numbness, tingling, and seizure. Exam: 07:51 Constitutional: Thin male, somnolent but awakens easily to voice Head/Face: rn Normocephalic, atraumatic. ENT: dry MM Cardiovascular: Regular rate. No pulse deficits. Respiratory: No increased work of breathing, no retractions or nasal flaring. Abdomen/GI: soft, + large ventral hernia with 2 open wounds midline, + small amount of drainage. Skin: Warm, dry, + foul smelling wound left heel with black tissue and small amount of drainage. MS/ Extremity: No cyanosis. Neuro: Somnolent, awakens to voice, GCS 15 Vital Signs: 08:00 BP 121 / 64; Pulse 95; Resp 18; Temp 101.1(O); Pulse Ox 97% on R/A; em 08:45 BP 107 / 71; Pulse 98; Resp 16; Pulse Ox 96% on R/A; em 10:00 BP 86 / 44; Pulse 78; Resp 16; Pulse Ox 96% on R/A; em 10:28 BP 105 / 46; Pulse 74; Resp 16; Pulse Ox 99% on R/A; em 10:49 BP 101 / 53; Pulse 69; Resp 16; Pulse Ox 99% on R/A; em 11:12 Temp 97.9(O); em 11:27 BP 95 / 47; Pulse 62; Resp 18; Pulse Ox 95% on R/A; em 11:55 BP 112 / 54; Pulse 71; Resp 14; Pulse Ox 94% on R/A; em 12:15 BP 104 / 57; Pulse 67; Resp 18; Pulse Ox 99% on R/A; em 12:45 BP 113 / 55; Pulse 77; Resp 16; Pulse Ox 99% on R/A; em MDM: 07:28 Patient medically screened. rn 10:56 Differential Diagnosis: electrolyte abnormality, pneumonia, sepsis, UTI, cellulitis, travel med surg rn infection, colitis. Data reviewed: vital signs, nurses notes, lab test result(s), radiologic studies, CT scan, plain films, and as a result, I will admit patient. Counseling: I had a detailed discussion with the patient and/or guardian regarding: the historical points, exam findings, and any diagnostic results supporting the discharge/admit diagnosis, lab results, radiology results, the need for further work-up and treatment in the hospital. Response to treatment: the patient's symptoms have mildly improved after treatment, and as a result, I will admit patient. Admission orders: after a detailed discussion of the patient's condition and case, the admit orders are written by me. ED course: Pt with no acute findings on CT abdomen, will admit for diabetic wound infection, vanc/levaquin given, still somnolent but easily arousable, Admitted to Dr. Lujan. BP 101/[address] without evidence of enterocutaneous fistula or active GI process. . 11:10 ED course: Called Karthik Lujan for admission twice, no answer, message left \T\ 11:10. 10/11 07:31 Order name: CBC with Diff; Complete Time: 10:15 10/11 07:31 Order name: Basic Metabolic Panel; Complete Time: 08:43 10/11 07:31 Order name: Urine Culture 10/11 07:31 Order name: Urine Microscopic Only; Complete Time: 09:30 10/11 07:31 Order name: Blood Culture Adult (2) 10/11 07:31 Order name: Wound Culture 10/11 07:31 Order name: XRAY Chest (1 view); Complete Time: 11:18 10/11 07:31 Order name: Procalcitonin; Complete Time: 09:30 10/11 07:33 Order name: Lactate; Complete Time: 08:43 10/11 07:50 Order name: CT Abd/Pelvis - PO and IV Contrast; Complete Time: 10:51 10/11 07:55 Order name: Urine Drug Screen; Complete Time: 09:30 10/11 09:07 Order name: Urine Dipstick--Ancillary (enter results); Complete Time: 09:40 10/11 10:12 Order name: CBC Smear Scan; Complete Time: 10:15 EDIN 10/11 07:31 Order name: IV Start; Complete Time: 08:17 10/11 07:31 Order name: Urine Dipstick-Ancillary (obtain specimen); Complete Time: 10:05 10/11 07:31 Order name: Glucose Level; Complete Time: 08:39 rn 10/11 07:32 Order name: EKG; Complete Time: 07:33 rn 10/11 07:32 Order name: EKG - Nurse/Tech; Complete Time: 08:39 rn Administered Medications: 09:10 Drug: Motrin 800 mg Route: PO; em 11:15 Follow up: Response: No adverse reaction; Temperature is decreased em 09:40 Drug: NS 0.9% 500 ml Route: IV; Rate: bolus; Site: left forearm; em 11:14 Follow up: IV Status: Completed infusion; IV Intake: 500ml em 09:50 Drug: vancoMYCIN 1 grams Route: IVPB; Infused Over: 2 hrs; Site: right antecubital; em 13:20 Follow up: Response: No adverse reaction; IV Status: Completed infusion; IV Intake: em 250ml 10:28 Drug: NS 0.9% 1000 ml Route: IV; Rate: 1000 ml; Site: left forearm; em 12:30 Follow up: IV Status: Completed infusion; IV Intake: 1000ml em 11:32 Drug: NS 0.9% 1000 ml Route: IV; Rate: 1000 ml; Site: left forearm; em 12:30 Follow up: IV Status: Completed infusion; IV Intake: 1000ml em 13:21 Drug: LevaQUIN 750 mg Volume: 150 ml; Route: IVPB; Infused Over: 90 mins; Site: left em forearm; Disposition: 10/12/19 10:59 Hospitalization ordered by Prince Le for Inpatient Admission. Preliminary diagnosis are Sepsis, unspecified organism, Diabetic wound infection, Cellulitis, unspecified. - Bed requested for Telemetry/MedSurg (Inpatient). - Status is Inpatient Admission. em - Condition is Fair. - Problem is new. - Symptoms have improved. Signatures: Dispatcher [employer] EDNic Pacheco RN RN em Nieto, Roman, MD MD rn Botello, Elizabeth eb Corrections: (The following items were deleted from the chart) 11:00 10:59 Hospitalization Ordered by Prince Le MURPHY for Inpatient Admission. Preliminary rn diagnosis is Sepsis, unspecified organism; Diabetic wound infection. Bed requested for Intensive Care Unit. Status is Inpatient Admission. Condition is Fair. Problem is new. Symptoms have improved. rn 12:00 11:00 10/12/2019 10:59 Hospitalization Ordered by Prince Le MURPHY for Inpatient eb Admission. Preliminary diagnosis is Sepsis, unspecified organism; Diabetic wound infection; Cellulitis, unspecified. Bed requested for Intensive Care Unit. Status is Inpatient Admission. Condition is Fair. Problem is new. Symptoms have improved. rn 13:31 12:00 10/12/2019 10:59 Hospitalization Ordered by Prince Le MURPHY for Inpatient em Admission. Preliminary diagnosis is Sepsis, unspecified organism; Diabetic wound infection; Cellulitis, unspecified. Bed requested for Telemetry/MedSurg (Inpatient). Status is Inpatient Admission. Condition is Fair. Problem is new. Symptoms have improved. eb
--- NOTE | 2019-10-12 11:15 | RAD REPORT ---
EXAM DESCRIPTION: RAD - Chest Single View - 10/12/2019 9:13 am CLINICAL HISTORY: AMS, weakness Chest pain. COMPARISON: Chest Single View dated 03/06/2019; Chest Single View dated 10/30/2018; Chest Single View dated 04/03/2018; Chest Single View dated 03/27/2018 FINDINGS: Portable technique limits examination quality. Emphysematous changes are present throughout the lungs. The heart is normal in size. Sternotomy wires . IMPRESSION: Prominent COPD.
[2019-10-12] MEDS ORDERED: Levofloxacin 750mg IV 750 MG/150 ML BAG IV ONE (11:38)
--- NOTE | 2019-10-12 13:10 | P.HP ---
Certification for Inpatient Patient admitted to: Inpatient With expected LOS: >2 Midnights Practitioner: I am a practitioner with admitting privileges, knowledge of patient current condition, hospital course, and medical plan of care. Services: Services provided to patient in accordance with Admission requirements found in Title 42 Section 412.3 of the Code of Federal Regulations Patient History Date of Service: 10/12/19 Reason for admission: Sepsis, AMS, wound infection History of Present Illness: Is a 74-year-old male with a past medical history of tobacco smoking, polysubstance abuse, hypertension, type 2 diabetes mellitus, coronary disease status post CABG, intra-abdominal hernia, and chronic left heel wounds. Patient was brought in upon recommendation by caregiver as he became minimally responsive and difficult to get off the couch. EMS was called. Workup in the ER revealed evidence of sepsis. His left heel is foul-smelling, edema to us and mildly purulent. His entire left foot is almost cyanotic. I discussed the case with Dr. Mixon who has known the patient for several years now. Patient was non-compliant with outpatient appointment to [facility] and vascular surgery. Sometimes he would not be allowed wound nurse to come and rhythm. This time today, patient agreed to proceed with a left below-knee amputation. Dr. Mixon recommends surgical consult for preop clearance. Of note, as stated above, he also has a abdominal hernia double is mildly purulent. CT abdomen and pelvis revealed large ventral hernia without abscess or bowel obstruction. Allergies ampicillin Allergy (Unknown, Verified 04/01/13 18:00) Anaphylaxis aspirin Allergy (Verified 04/01/13 18:00) Anaphylaxis codeine Allergy (Verified 04/01/13 18:00) Anaphylaxis meperidine HCl [From Demerol] Allergy (Verified 04/01/13 18:00) Anaphylaxis Penicillins Allergy (Verified 04/01/13 18:00) Anaphylaxis tetracycline [Tetracycline] Allergy (Verified 04/01/13 18:00) Anaphylaxis Home Medications: Clopidogrel Bisulfate [Plavix*] 75 mg PO DAILY 10/09/17 Ezetimibe/Simvastatin [Vytorin 10-80 mg Tablet] 1 each PO DAILY 10/09/17 Isosorbide Mononitrate [Isosorbide Mononitrate ER] 0.5 tab PO DAILY 10/09/17 Nitroglycerin [Nitrostat*] 0.4 mg SL PRN PRN 10/09/17 Tamsulosin [Flomax*] 0.4 mg PO BEDTIME #30 cap 10/12/17 Cyclobenzaprine [Flexeril*] 10 mg PO Q4H PRN 03/27/18 Insulin 70/30 NPH/Reg Human [Novolin 70/30*] 30 unit SQ TID 03/27/18 carisoprodoL [Soma*] 1 tab PO Q4H PRN 03/27/18 - Past Medical/Surgical History Diabetic: Yes -: Diabetes mellitus type 2 -: CAD -: Hyperlipidemia -: Previous CVA -: Alcohol abuse -: Cocaine abuse -: Hepatitis-C -: COPD -: Tobacco abuse -: CABG x1 -: Abdominal skin graft to abdomen and face -: Cholecystectomy -: Appendectomy -: L knee replacement -: Hernia repair Psychosocial/ Personal History: Patient is a . He has 2 children. Sons look after him. - Social History Alcohol use: Yes CD- Drugs: No Caffeine use: Yes Physical Examination - Studies Laboratory Data (last 24 hrs) 10/12/19 08:14: Sodium 132 L, Potassium 4.2, BUN 18, Creatinine 1.22, Glucose 190 H 10/12/19 08:14: WBC 15.1 H, Hgb 9.7 L, Hct 31.3 L, Plt Count 371 Assessment and Plan - Problems (Diagnosis) (1) Coronary artery bypass grafting Current Visit: No Status: Active (2) Acute metabolic encephalopathy Current Visit: No Status: Acute (3) BPH (benign prostatic hyperplasia) Current Visit: No Status: Chronic Qualifiers: Lower urinary tract symptom presence: unspecified whether lower urinary tract symptoms present Qualified Code(s): N40.0 - Benign prostatic hyperplasia without lower urinary tract symptoms (4) COPD (chronic obstructive pulmonary disease) Onset Date: 03/28/18 Current Visit: No Status: Chronic Qualifiers: COPD type: chronic bronchitis Chronic bronchitis type: unspecified Qualified Code(s): J42 - Unspecified chronic bronchitis (5) Hyperlipidemia Onset Date: 12/14/16 Current Visit: No Status: Chronic (6) Open wound of abdominal wall with complication Current Visit: No Status: Chronic (7) Diabetic foot ulcers Current Visit: No Status: Resolved - Advance Directives Does patient have a Living Will: No Does patient have a Durable POA for Healthcare: Yes Physician Review Additional Text: Assessment The patient is a 74-year-old male with a history of tobacco smoking, polysubstance abuse, hypertension, hyperlipidemia, coronary disease status post CABG, uncontrolled type 2 diabetes currently admitted with worsening of chronic left heel ulcer that became increasingly infected. He's septic. Received vancomycin in the ER. Source of infection is most likely is left heel ulcer. He has been noncompliant with outpatient treatment including wound care and vascular surgery. I discussed the case with Dr. Mixon from surgery and and the patient. There is a plan for left BKA on Monday. Reviewed echocardiogram from 2019 which revealed normal LV EF, LVH and mild tricuspid regurg and pulmonary hypertension. Sepsis Left heel ulcer Uncontrolled type 2 diabetes Tobacco smoking Polysubstance abuse CABG Medication noncompliance Plan: Admit inpatient with telemetry Start broad-spectrum antibiotics Follow-up blood cultures and MRI of the leg ordered Cardiology consulted for preop clearance Hold home dose of Plavix perioperatively Resumed diabetic diet Check A1c Resume home medications
[2019-10-12] MEDS ORDERED: NITROGLYCERIN 0.4 MG/TAB SL PRN (14:49)
[2019-10-12] MEDS ORDERED: GLUCAGON 1 MG/VIAL IM PRN ×2 (14:49→20:14)
[2019-10-12] MEDS ORDERED: D50W 25 GM/50 ML SYRINGE/VIAL IV PRN ×2 (14:49→20:14)
[2019-10-12 15:36] VITALS: BMI 22.3
[2019-10-12] MEDS: INSULIN 70/30 100 UNITS/ML SQ SCH (17:40)
[2019-10-12] MEDS: PIPER/TAZO/NS 3.375gm 3.375 GM/100 ML BAG IVPB SCH (17:43)
[2019-10-12] MEDS ORDERED: INSULIN 70/30 100 UNITS/ML SQ SCH (21:00)
[2019-10-12] MEDS: INSULIN -REGULAR HUMAN 50 UNIT/0.5 ML ML SQ SCH (21:25)
[2019-10-13] MEDS ORDERED: NA CHLORIDE 0.9% 1,000 ML ONE (00:58)
[2019-10-13] MEDS: PIPER/TAZO/NS 3.375gm 3.375 GM/100 ML BAG IVPB SCH ×3 (01:08→17:17)
[2019-10-13] MEDS: carisoprodoL 350 MG TAB PO PRN ×2 (02:16→06:19)
[2019-10-13] MEDS: CYCLOBENZAPRINE 10 MG TAB PO PRN ×3 (04:51→15:20)
[2019-10-13] MEDS ORDERED: NA CHLORIDE 0.9% 1,000 ML IV SCH (07:00)
[2019-10-13] MEDS: INSULIN -REGULAR HUMAN 50 UNIT/0.5 ML ML SQ SCH ×4 (07:30→21:00)
[2019-10-13] MEDS: SIMVASTATIN PO SCH (09:00)
[2019-10-13] MEDS: ISOSORBIDE MONO SR 30 MG TAB PO SCH (09:00)
[2019-10-13] MEDS: EZETIMIBE PO SCH (09:00)
[2019-10-13] MEDS: VANCOMYCIN 1.25 GM in NA CHLORIDE 0.9% 250 ML IV SCH (09:01)
[2019-10-13] MEDS: INSULIN 70/30 100 UNITS/ML SQ SCH ×3 (09:01→16:30)
--- NOTE | 2019-10-13 10:20 | EKG ---
Test Date: 2019-10-12 Test Time: 09:59:03 Tiler'S Assistant: REGINO MEASUREMENT RESULTS: Intervals: Rate: 81 NH: 200 QRSD: 90 QT: 402 QTc: 466 [place]: P: 44 NH: 200 QRS: 18 T: -80 INTERPRETIVE STATEMENTS: Sinus rhythm and premature ventricular complexes or fusion complexes Possible Anterior infarct, age undetermined ST & T wave abnormality, consider inferolateral ischemia Abnormal ECG Compared to ECG 03/06/2019 15:58:51 Fusion complex(es) now present Myocardial infarct finding now present Left ventricular hypertrophy no longer present ST (T wave) deviation still present Possible ischemia still present Electronically Signed On 10-13-19 10:19:03 CDT by Demetrio Sanchez
--- NOTE | 2019-10-13 12:55 | CON ---
Date of Consultation: 10/12/2019 Reason For Consultation: Cardiac clearance for possible left BKA. History Of Present Illness: Mr. Hutchins is a 74-year-old male, has had a history of CABG in the past; diabetes; dyslipidemia; has nonhealing wounds of the left lower extremity, presumably secondary to di abetic vasculopathy. Has failed conservative management and apparently, there is a plan to do a BKA on him on Monday. He denied any cardiac symptoms. He denied PND, orthopnea. He denied any chest pa in. Denies any unexplained nausea or vomiting. Denies shortness of breath. History Of Present Illness: Mr. Hutchins has a history of substance abuse. His urinalysis was positive for cocaine. His diabetes is poorly controlled. He appeared to be septic with elevated procalciton in and lactic acid. Past Medical History: As stated above. Allergies: HE IS ALLERGIC TO DEMEROL, ASPIRIN, PENICILLIN, AND CODEINE. Medications: At home include insulin, Plavix, Vytorin, and Imdur. Review of Systems: Negative. Social History: Positive for drug use. Family History: Noncontributory. Physical Examination: Vital Signs: Stable. He was afebrile. HEENT: Negative. Neck: Supple with no bruit. Chest: Clear. Cardiac: Revealed a regular rhythm and rate with an S4 gallops. No murmurs or rubs. Abdomen: Benign. Extremities: His right extremity was normal. Left extremity has nonhealing wound with dressings eddie t were dry and intact. Diagnostic Data: His glucose was 345. White count was 15,000, hemoglobin was 9.7. Procalcitonin wa s 1.5. Lactic acid was 11.8. Chest x-ray shows COPD. Drug screen on his urine showed cocaine. Echocardiogram in 2019 was normal. Impression And Plan: This is a patient, who is 74, has had a history of coronary artery bypass graft , has severe peripheral arterial disease with nonhealing wound in the left lower extremity, needing a below-knee amputation. He has no cardiac symptoms. His EKG is unremarkable. His chest x-rays show s chronic obstructive pulmonary disease. He does not have any clinical evidence of congestive heart failure at this point and I am comfortable with him having the surgery on Monday. I will continue to follow him. Continue his present regimen. His diabetes is poorly controlled. His dyslipidemia is well controlled. He has anemia, elevated white count. Procalcitonin and lactic acid consistent with sepsis. He is on antibiotics. KRISTIE/MODL Voice ID: [id number] Report ID: [id number]
--- NOTE | 2019-10-13 13:49 | P.PN ---
Subjective Date of Service: 10/13/19 Chief Complaint: Sepsis, AMS, wound infection Subjective: No new changes (- Seen, no new c/o - bit drowsy this am , staff report c/o of pain) Physical Examination - Vital Signs Temperature: 102.1 F Blood Pressure: 126/62 Pulse: 84 Respirations: 20 Pulse Ox (%): 90 - Physical Exam General: Other (drowsy) HEENT: Atraumatic, Normocephalic Neck: Supple, 2+ carotid pulse no bruit Respiratory: Clear to auscultation bilaterally, Normal air movement Cardiovascular: Normal pulses, Regular rate/rhythm, Normal S1 S2 Gastrointestinal: Normal bowel sounds, Soft and benign, Non-distended Musculoskeletal: No clubbing, No swelling Integumentary: Other (left leg ulcer , dsg over area ) - Studies Microbiology Data (last 24 hrs): 10/12/19 08:10 Blood - Blood Anaerobic Blood Culture - Final Assessment And Plan Physician Review: Patient Assessed, Agree with Above Assessment and Plan Physician Review Additional Text: Assessment The patient is a 74-year-old male with a history of tobacco smoking, polysubstance abuse, hypertension, hyperlipidemia, coronary disease status post CABG, uncontrolled type 2 diabetes currently admitted with worsening of chronic left heel ulcer that became increasingly infected. He's septic. Received vancomycin in the ER. Source of infection is most likely is left heel ulcer. He has been noncompliant with outpatient treatment including wound care and vascular surgery. There is a plan for left BKA on Monday. Reviewed echocardiogram from 2019 which revealed normal LV EF, LVH and mild tricuspid regurg and pulmonary hypertension. Impression Sepsis Left heel ulcer Uncontrolled type 2 diabetes Tobacco smoking Polysubstance abuse CABG Medication noncompliance Metabolic Encephalopathy Plan: - will continue abx -follow plan for surgery in am -follow pending blood cx -c/w telemetry -Cardiology consulted for preop clearance -c/w to hold dose of Plavix perioperatively -Intermittent low glucose , monitor closely , if persistent , will start D5W -Elevated hab1c of 11.3 noted - add prn pain meds
[2019-10-13] MEDS ORDERED: HYDRALAZINE HCL 20 MG/ML VIAL IV PRN (13:50)
[2019-10-13] MEDS ORDERED: MORPHINE 2 MG/ML SYR IV PRN (13:50)
[2019-10-13] MEDS: NA CHLORIDE 0.9% 1,000 ML IV SCH (13:51)
--- NOTE | 2019-10-13 14:07 | PN ---
Date of Progress Note: 10/13/2019 Mr. Hutchins was admitted with severe peripheral arterial disease. He needed cardiac clearance for left BKA tomorrow. He had a normal echocardiogram in 2019. Chest x-ray showed COPD. He is showing sign s of sepsis with a white count of 15,000, elevated procalcitonin, elevated lactic acid. He has not h ad any cardiac complaint overnight. He did well on antibiotics. His vital signs remained stable. H is blood pressure is 100/60. He is in sinus rhythm. His temperature is 98.8. Last glucose was 345 and that is being handled. His creatinine is 1.22. Antibiotics are being administered. We will con sehll to follow him postoperatively tomorrow. KRISTIE/MARYL Voice ID: [id number] Report ID: [id number]
[2019-10-13] MEDS ORDERED: ACETAMINOPHEN 500 MG TAB PO PRN (15:11)
--- NOTE | 2019-10-13 21:52 | CON ---
Date of Consultation: 10/13/2019 Reason For Service: Left foot necrotic diabetic ulcer. History Of Present Illness: This is the case of a 74-year-old patient who comes to us with sepsis. He has a long history of cardiac disease, multiple also noncompliance in the sense of not able to do his vascular workup. Home health agencies have not been able to be in his house due to th e environment in the house itself. He has not been able to come [facility]. Now he comes in with a foul smelling left ankle that previously was diagnosed with gangrenous changes, but he did not show in the [facility] for more than 2 weeks. At one point, even t he vascular surgeon sent somebody to pick him up and bring him to his institution in [place], but as per that service, the person did not allow the employer to go in and even released the dogs and bite him. At the same time, the home health agency is having some issues due to the presence of rachael madrid as the nurse just trying to go in that area. Otherwise, it has been difficult to get in. I discu ssed with his son too, he has not been able to do of drugs and at one point there was hero in and severe smoking. At this point, he is even positive for cocaine. He has been advised many taty es in the past the importance of taking care of himself especially when he knows he has diabetes and he has severe heart disease with even surgeries in the past. As I discussed with the son too who was present right now at bedside, he has done everything he can also to make changes in his life, but he has not been able to do so, neither us. Allergies: INCLUDE CODEINE, ASPIRIN, AMPICILLIN, MEPERIDINE, PENICILLIN, TETRACYCLINE. Social History: He smokes, although unknown quantity. He use street drugs, was positive for cocaine during this admission. Past Medical History: Include diabetes, coronary artery disease, hyperlipidemia, CVAs, alcohol use, cocaine abuse, heroin abuse, hepatitis C, COPD, multiple non-fixable abdominal hernias, fistulas. Past Surgical History: Include cholecystectomy, appendectomy, knee replacement, hernia repair, CABG, multiple intraabdominal surgeries done in [place]. Family History: Noncontributory. Review of Systems: Ten points otherwise unremarkable. Physical Examination: General: The patient is awake. HEENT: Pupils anicteric. Chest: Bilateral breath sounds. Abdomen: Soft and depressible. No guarding or rebound. Rectal: Deferred. Extremities: The patient has foul-smelling wound coming from the left heel region well known by us s leticia patient has a nonhealing ulcer of the left heel region that is going now down to bone with necro tic tissue present, foul smelling. Peripheral vascular disease, no dorsalis pedis pulses in that are a either. Laboratory Data: Blood work shows WBC count of 15.1, hemoglobin of 9.7, hemoglobin A1c of 11.8, gluc ose 358. Toxicology shows cocaine positive. Assessment And Plan: A 74-year-old patient with severe peripheral vascular disease, unable to do his vascular service for the situation discussed above. Now, came with gangrenous changes of the left f oot, chronic diabetic, chronic smoker, chronic drug abuser. We request medical doctors and the [facility] ologist to evaluate this patient since patient will need at least below-knee amputation. I discussed with him and the family that may not even heal, but at least we have to give it a chance since it lo oks viable, although if the circulation does not improve, he might even have to go higher amputation. The benefits, alternatives, and risks of this surgery were fully explained which include, but not l imited to infection, bleeding, damage to adjacent structures, anesthesia complication, nonhealing wou nd, flap failure, [place], and even . He also understands this may not relieve any symptoms, he migh t need more than one surgical intervention. He was explained the importance and counseled about how it is risking his life and how life-threatening it is by exposing himself to the smoking, to noncompl iance, to no glucose control, to a drug use. The family is also aware, but they said they have not been able to change his habits. HM/MODL Voice ID: [id number] Report ID: [id number]
[2019-10-14] MEDS: PIPER/TAZO/NS 3.375gm 3.375 GM/100 ML BAG IVPB SCH ×2 (00:20→09:00)
[2019-10-14] MEDS ORDERED: ACETAMINOPHEN 650MG/RECT SUPP PR PRN (02:54)
[2019-10-14 05:38] LABS: Absolute Lymphocytes (CBC) 0.1 K/uL (0.7-4.9); Basophils % 0.2 % (0-1.3); Hematocrit 27.1 % (39.6-49.0); Lymphocytes % 1.8 % (15.3-44.8); MPV 7.5 fL (7.6-11.3); RBC Red Blood Cell Count 4.01 M/uL (4.33-5.43)
[2019-10-14 06:08] LABS: Albumin 1.5 g/dL (3.4-5.0); Bilirubin Total 0.4 mg/dL (0.2-1.0); Potassium 3.7 mmol/L (3.5-5.1); Protein, Total 6.1 g/dL (6.4-8.2)
[2019-10-14 06:33] LABS: Platelet Estimate ADEQ; Urine White Blood Cell Casts OK
[2019-10-14 06:34] LABS: Anisocytosis 1+; Blood Morphology Comment NOTED (NOT SEEN); Hypochromasia 1+
[2019-10-14] MEDS: INSULIN -REGULAR HUMAN 50 UNIT/0.5 ML ML SQ SCH ×4 (07:30→21:19)
[2019-10-14] MEDS: INSULIN 70/30 100 UNITS/ML SQ SCH ×2 (07:30→11:30)
[2019-10-14] MEDS: SIMVASTATIN PO SCH (09:00)
[2019-10-14] MEDS: EZETIMIBE PO SCH (09:00)
[2019-10-14] MEDS: VANCOMYCIN 1.25 GM in NA CHLORIDE 0.9% 250 ML IV SCH (09:00)
[2019-10-14] MEDS: ISOSORBIDE MONO SR 30 MG TAB PO SCH (09:00)
[2019-10-14] MEDS: NA CHLORIDE 0.9% 1,000 ML IV SCH (13:59)
--- NOTE | 2019-10-14 14:54 | P.PN ---
Subjective Date of Service: 10/14/19 Primary Care Provider: Unknown Chief Complaint: Sepsis, AMS, wound infection Subjective: Other (Patient was to have surgery today for left below-knee amputation. Patient refusing. Patient does not desire any surgery. Desires pain medication. Desires to eat.) Physical Examination - Vital Signs Temperature: 100.3 F Blood Pressure: 95/50 Pulse: 104 Respirations: 22 Pulse Ox (%): 93 - Physical Exam General: Alert, Cooperative HEENT: Atraumatic Neck: Supple Respiratory: Clear to auscultation bilaterally, Normal air movement Cardiovascular: Normal pulses, Regular rate/rhythm Gastrointestinal: Other (Patient with large umbilical hernia. Several wounds noted to the pannus. Foul odor noted with erythema.) Integumentary: Other (Large eschar to the left heel. Increased swelling, edema, pain.) Neurological: Normal speech, Normal strength at 5/5 x4 extr, Normal tone, Normal affect - Studies Microbiology Data (last 24 hrs): 10/12/19 09:56 Wound - Left Foot Gram Stain - Final 10/12/19 08:00 Clean Catch Urine [place] Count - Final 10/12/19 08:00 Clean Catch Urine - Final No growth. Medications List Reviewed: Yes Assessment & Plan Discharge Plan: Home (Home with hospice) Plan to discharge in: 24 Hours Physician Review Additional Text: Assessment The patient is a 74-year-old male with a history of tobacco smoking, polysubstance abuse, hypertension, hyperlipidemia, coronary disease status post CABG, uncontrolled type 2 diabetes currently admitted with worsening of chronic left heel ulcer that became increasingly infected. He's septic. Received vancomycin in the ER. Source of infection is most likely is left heel ulcer. He has been noncompliant with outpatient treatment including wound care and vascular surgery. There is a plan for left BKA on Monday. Reviewed echocardiogram from 2019 which revealed normal LV EF, LVH and mild tricuspid regurg and pulmonary hypertension. Impression: Sepsis secondary to gangrenous left foot with chronic diabetic left heel ulcer complicated with poor compliance Peripheral vascular disease Hypertension Diabetes mellitus type 2 with hyperglycemia Tobacco abuse Cocaine abuse Alcohol abuse CAD with history of CABG Hyperlipidemia Large ventral hernia with panniculitis Anemia of chronic disease History of noncompliance Plan: Sepsis secondary to gangrenous left foot with chronic diabetic left heel ulcer complicated with poor compliance: Patient was scheduled for amputation of the lower extremity. Patient declines surgery. He is adamant that he does not want surgery. Patient understands the risks and benefit of surgery. He also understands the risk of the no surgery. This includes . This was discussed in detail with son present. Advanced directives address in detail. Patient wishes to be do not resuscitate. Also addressed advanced care planning including hospice. Since the patient does not desire any further workup, treatment and surgery, the patient prefers to go home with hospice. This will provide medication for pain, hospital bed and comfort measures. This was further discussed in detail with son who was present and another son on the phone. Both understand the patient wishes. Will pursue hospice at this time. Will consult social science research assistant to help with this. Case discussed at length with surgery as well. Surgery is in agreement with plan of care. Once hospice is arranged will pursue comfort feeding, comfort measures only and pain control. Will discontinue IV antibiotic therapy and IV fluids after that time Peripheral vascular disease: Continue with DVT prophylaxis. Hypertension: Blood pressure low. No need for medication. Diabetes mellitus type 2 with hyperglycemia: Will provide sliding-scale this time. Tobacco abuse: Patient may require nicotine patch. Cocaine abuse: Patient was positive for cocaine. This was addressed in detail. Son also understands this. Alcohol abuse: Continue as above CAD with history of CABG: No need for surgery at this time. Continue as above Hyperlipidemia: Continue as above Large ventral hernia with panniculitis: Continue supportive treatment. Anemia of chronic disease: Will pursue hospice. History of noncompliance: This was addressed in detail. Time Spent Managing Pts Care (In Minutes): 55 (This includes advanced care planning 30 min)
[2019-10-14] MEDS ORDERED: HYDROCODONE/APAP 7.5/325 MG TAB PO PRN (14:55)
[2019-10-14] MEDS ORDERED: TRAMADOL HCL 50 MG TAB PO PRN (14:55)
[2019-10-14] MEDS ORDERED: CYCLOBENZAPRINE 10 MG TAB PO PRN (14:57)
[2019-10-14] MEDS ORDERED: ENOXAPARIN 30 MG/0.3 ML SQ SCH (17:00)
--- NOTE | 2019-10-14 18:35 | RAD REPORT ---
EXAM DESCRIPTION: MRI - Ankle Left Wo Cont - 10/14/2019 6:27 pm CLINICAL HISTORY: r/o osteomyelitisdraining wound medial calcaneus soft tissues, malodorous COMPARISON: No comparisons TECHNIQUE: Multiplanar imaging of the left ankle performed using T1 weighted, proton density, T2 fat saturation and T2 stir sequencing. FINDINGS: Hypointense T1 and hyperintense T2 signal is present throughout most of the calcaneus. The re is some spared normal marrow along the anterolateral aspect. There is thinning and irregularity of the cortex medial margin of the calcaneus. 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 Pat ient likely has osteomyelitis bone disruption along the medial aspect of the posterior calcaneus. Remaining bony structures show degenerative changes but no acute process. Achilles and plantar tendons show no suspicious findings. Tendons of the ankle show no suspicious fin dings. Wound is present in the medial calcaneus. There is evidence of air in the soft tissues likely from de bridement or treatment of the wound. No definitive abscess seen. 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 Soft tissue wound in the medial soft tissues. There is air present likely from debridement.
[2019-10-14] MEDS ORDERED: EZETIMIBE 10 MG TAB PO SCH (21:00)
[2019-10-14] MEDS ORDERED: ATORVASTATIN 40 MG TAB PO SCH (21:00)
[2019-10-14] MEDS: PROMOD 30 ML DOSE PO SCH (21:15)
[2019-10-14 23:31] VITALS: O2SAT 99
[2019-10-15 04:18] LABS: Absolute Lymphocytes (CBC) 0.6 K/uL (0.7-4.9); Basophils % 0.2 % (0-1.3); Hematocrit 26.6 % (39.6-49.0); Lymphocytes % 7.1 % (15.3-44.8); RBC Red Blood Cell Count 3.95 M/uL (4.33-5.43)
[2019-10-15 04:34] LABS: ALT/SGPT 30 U/L (12-78); AST/SGOT 112 U/L (15-37); Albumin 1.3 g/dL (3.4-5.0); Alkaline Phosphatase 88 U/L (45-117); BUN Blood Urea Nitrogen 21 mg/dL (7-18); Bicarbonate 23 mmol/L (21-32); Bilirubin Total 0.3 mg/dL (0.2-1.0); Glucose Level 158 mg/dL (74-106); Potassium 3.8 mmol/L (3.5-5.1); Protein, Total 5.7 g/dL (6.4-8.2); Sodium Level 133 mmol/L (136-145)
[2019-10-15] MEDS: ISOSORBIDE MONO SR 30 MG TAB PO SCH (08:33)
[2019-10-15] MEDS: INSULIN -REGULAR HUMAN 50 UNIT/0.5 ML ML SQ SCH ×2 (08:34→11:35)
[2019-10-15] MEDS: PROMOD 30 ML DOSE PO SCH (08:34)
--- NOTE | 2019-10-15 11:47 | P.PN ---
Subjective Date of Service: 10/14/19 Primary Care Provider: Unknown Chief Complaint: Sepsis, AMS, wound infection Subjective: Worsening Review of Systems Integumentary: As per HPI Physical Examination - Vital Signs Temperature: 98.5 F Blood Pressure: 123/68 Pulse: 86 Respirations: 18 Pulse Ox (%): 96 - Physical Exam General: Alert Gastrointestinal: Soft and benign Integumentary: Tenderness/swelling, Erythema, Warmth, Cyanosis, Diabetic ulcer (necrotic tissue present) - Studies Microbiology Data (last 24 hrs): 10/12/19 09:56 Wound - Left Foot Gram Stain - Final 10/12/19 09:56 Wound - Left Foot Culture & Sensitivity - Final Escherichia Coli Meth Resistant Staph Aureus Streptococcus Agalactiae Grp B 10/12/19 08:00 Clean Catch Urine [place] Count - Final 10/12/19 08:00 Clean Catch Urine - Final No growth. Medications List Reviewed: Yes Assessment And Plan - Plan PT schedule for surgery today but he is refusing now. He understood this may compromise his life and he may did as a consequence of it. Family at bedside and aware. Physician Review: Patient Assessed, Agree with Above Assessment and Plan
--- NOTE | 2019-10-15 12:31 | P.DS ---
Admission Date: 10/12/19 Discharge Date: 10/15/19 Primary Care Provider: Unknown Disposition: ROUTINE DISCHARGE Discharge Condition: GOOD Reason for Admission: Sepsis, AMS, wound infection Consultations: Surgery-Dr. Mixon Procedures: CT scan: FINDINGS: Small 4 mm nodule is present medial right lung base, unchanged. Linear atelectasis is present in both lung bases. The liver demonstrates mild fatty infiltration. No focal mass or biliary dilatation. Cholecystectomy clips. The spleen, pancreas adrenal glands and kidneys show no acute process. A large ventral hernia is present. No bowel obstruction is seen. No drainable abscess collection evident. Irregular skin thickening is seen along the inferior pole of the hernia. No free intraperitoneal air seen. The appendix is normal. No evidence of significant lymphadenopathy. Chronic ununited fracture of the proximal right femoral neck. IMPRESSION: Large ventral hernia is seen without drainable abscess collection or bowel obstruction. Ununited chronic fracture proximal right femoral neck. MRI: FINDINGS: Hypointense T1 and hyperintense T2 signal is present throughout most of the calcaneus. There is some spared normal marrow along the anterolateral aspect. There is thinning and irregularity of the cortex medial margin of the calcaneus. 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 Patient likely has osteomyelitis bone disruption along the medial aspect of the posterior calcaneus. Remaining bony structures show degenerative changes but no acute process. Achilles and plantar tendons show no suspicious findings. Tendons of the ankle show no suspicious findings. Wound is present in the medial calcaneus. There is evidence of air in the soft tissues likely from debridement or treatment of the wound. No definitive abscess seen. 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 Soft tissue wound in the medial soft tissues. There is air present likely from debridement. Medical problem list: Sepsis secondary to gangrenous left foot with chronic diabetic left heel ulcer complicated MRI findings of osteomyelitis involving the majority of the calcaneus Peripheral vascular disease Hypertension Diabetes mellitus type 2 with hyperglycemia Tobacco abuse Cocaine abuse Alcohol abuse CAD with history of CABG Hyperlipidemia Large ventral hernia with panniculitis Anemia of chronic disease Ununited chronic fracture of the right femoral neck History of noncompliance Brief History of Present Illness: 74-year-old male with multiple medical problems including hypertension, peripheral vascular disease, diabetes, tobacco abuse, cocaine abuse, alcohol abuse, CAD, and chronic ulcer to the left heel. Patient has been poorly compliant. Patient has seen surgery in the past. Patient presented with sepsis. Patient evaluated by surgery. Surgery recommends below-knee amputation. Patient started on antibiotic therapy and treatment. Hospital Course: Patient presented with sepsis secondary to gangrenous left foot with chronic diabetic left heel ulcer complicated with MRI findings of osteomyelitis involving the majority of the calcaneus. Patient is poorly compliant. Patient seen and evaluated by surgery. Surgery recommended below-knee amputation. Patient declines surgery. He is adament that he does not want surgery. This was discussed in detail with patient and family members. Risk and benefit address in detail. Advanced directives also address in detail. Patient wishes to be do not resuscitate. Advanced care planning address in detail. Since the patient does not want surgery hospice was offered. Patient agreed to hospice. At discharge patient will continue with hospice at home. Patient desires with comfort measures only to maintain pain control and agitation. No need for further antibiotics at this time. Adjustments in medication can be done by hospice. Patient with other medical problems including hypertension, diabetes mellitus type 2, tobacco abuse, cocaine abuse, alcohol abuse, CAD with prior CABG, hyperlipidemia, large ventral hernia, anemia of chronic disease, and ununited chronic fracture of the right femoral neck. Patient may continue with his current medications. Further adjustment in medication can be done by hospice. Vital Signs/Physical Exam: Temp Pulse Resp BP Pulse Ox 98.5 F 86 18 123/68 96 10/15/19 11:47 10/15/19 11:47 10/15/19 11:47 10/15/19 11:47 10/15/19 11:47 General: Alert, In no apparent distress, Oriented x3, Cooperative HEENT: Atraumatic Neck: Supple Respiratory: Clear to auscultation bilaterally, Normal air movement Cardiovascular: Normal pulses, Regular rate/rhythm Integumentary: Other (Bandage to the left foot. Large necrotic eschar noted to the left heel. Foul odor noted.) Laboratory Data at Discharge: WBC 7.8 K/uL (4.3-10.9) 10/15/19 03:49 Hgb 8.3 g/dL (13.6-17.9) L 10/15/19 03:49 Hct 26.6 % (39.6-49.0) L 10/15/19 03:49 Plt Count 233 K/uL (152-406) 10/15/19 03:49 Sodium 133 mmol/L (136-145) L 10/15/19 03:49 Potassium 3.8 mmol/L (3.5-5.1) 10/15/19 03:49 BUN 21 mg/dL (7-18) H 10/15/19 03:49 Creatinine 0.77 mg/dL (0.55-1.3) 10/15/19 03:49 Glucose 158 mg/dL (74-106) H 10/15/19 03:49 Total Bilirubin 0.3 mg/dL (0.2-1.0) 10/15/19 03:49 AST 112 U/L (15-37) H 10/15/19 03:49 ALT 30 U/L (12-78) 10/15/19 03:49 Alkaline Phosphatase 88 U/L (45-117) 10/15/19 03:49 Home Medications: Clopidogrel Bisulfate [Plavix*] 75 mg PO DAILY 10/09/17 Ezetimibe/Simvastatin [Vytorin 10-80 mg Tablet] 1 each PO DAILY 10/09/17 Isosorbide Mononitrate [Isosorbide Mononitrate ER] 15 mg PO DAILY 10/09/17 Nitroglycerin [Nitrostat*] 0.4 mg SL PRN PRN 10/09/17 Cyclobenzaprine [Flexeril*] 10 mg PO Q4H PRN 03/27/18 Insulin 70/30 NPH/Reg Human [Novolin 70/30*] 30 unit SQ TID 03/27/18 Patient Discharge Instructions: Patient will go home on hospice. Continue hospice instructions and recommendations. Hospice to further adjust medication. Diet: ADA Activity: Fall precautions Time spent managing pt's care (in minutes): 55
[2019-10-15 12:42] VITALS: BP 134/60; TEMP 98.7
== END 2019-10-15 16:06 | disposition hospice, home (50) | DRG 871 ==
LOC: ER 07:24 → ERHOLD 11:31 → 2ND 12:34
PROVIDERS: ADMIT Internal Medicine; ATTEND Family Medicine
DX: A41.9 Sepsis, unspecified organism (principal); G93.41 Metabolic encephalopathy; E11.52 Type 2 diabetes mellitus with diabetic peripheral angiopathy with gangrene; I96 Gangrene, not elsewhere classified; L97.424 Non-pressure chronic ulcer of left heel and midfoot with necrosis of bone; M86.8X8 Other osteomyelitis, other site; I10 Essential (primary) hypertension; E78.5 Hyperlipidemia, unspecified; I25.10 Atherosclerotic heart disease of native coronary artery without angina pectoris; Z95.1 Presence of aortocoronary bypass graft; Z91.19 Patient's noncompliance with other medical treatment and regimen; Z88.1 Allergy status to other antibiotic agents; Z88.5 Allergy status to narcotic agent; Z79.02 Long term (current) use of antithrombotics/antiplatelets; Z79.4 Long term (current) use of insulin; Z79.899 Other long term (current) drug therapy; Z86.73 Personal history of transient ischemic attack (TIA), and cerebral infarction without residual deficits; Z96.652 Presence of left artificial knee joint; Z90.49 Acquired absence of other specified parts of digestive tract; N40.0 Benign prostatic hyperplasia without lower urinary tract symptoms; J44.9 Chronic obstructive pulmonary disease, unspecified; E11.621 Type 2 diabetes mellitus with foot ulcer; S31.109A Unspecified open wound of abdominal wall, unspecified quadrant without penetration into peritoneal cavity, initial encounter; F19.10 Other psychoactive substance abuse, uncomplicated; Z53.29 Procedure and treatment not carried out because of patient's decision for other reasons; E11.65 Type 2 diabetes mellitus with hyperglycemia; F14.10 Cocaine abuse, uncomplicated; F10.10 Alcohol abuse, uncomplicated; K43.9 Ventral hernia without obstruction or gangrene; M79.3 Panniculitis, unspecified; D63.8 Anemia in other chronic diseases classified elsewhere; E11.69 Type 2 diabetes mellitus with other specified complication; S72.91XD Unspecified fracture of right femur, subsequent encounter for closed fracture with routine healing
CPT/HCPCS: 36415; 71045; 74177; 80048; 80053; 80202; 80307; 81003; 81015; 82947; 83036; 83605; 84145; 85025; 87040; 87070; 87077; 87086; 87088; 87186; 87205; 93005; 96365; 96366; 96375; 99285; J1650; J1815; J2270; J2543; J3370; J7030; J7040; Q9967; U0002